=== PATIENT | male | born 1985 | race Two or more races ===

== ENCOUNTER 2021-11-15 21:47 | Inpatient (IN) | payer SELFPAY ==
[~2021-11-15] VITALS: Ht 177.8 cm; Wt 79.1 kg
[2021-11-15] MEDS ORDERED: PIP/TAZO PER PHARMACY MC PRN (22:15)
[2021-11-15 22:44] LABS: BASO # 0.1 x10^3/uL (0.0-0.2); BASO % 1 % (0-3); EOS % 0 % (0-3); HEMATOCRIT 50.7 % (39.0-53.0); HEMOGLOBIN 17.8 g/dL (13.0-17.5); LYMPH # 0.6 x10^3/uL (1.0-4.8); LYMPH % 5 % (24-48); MEAN CORPUSCULAR HEMOGLOBIN 33 pg (25-35); MEAN CORPUSCULAR HGB CONC 35 g/dL (31-37); MEAN CORPUSCULAR VOLUME 94 fL (79-100); MONO # 1.8 x10^3/uL (0.0-1.1); MONO % 14 % (0-9); NEUT # 10.8 x10^3/uL (1.8-7.7); NEUT % 81 % (31-73); PLATELET COUNT 167 x10^3/uL (140-400); RED BLOOD COUNT 5.43 x10^6/uL (4.30-5.70); RED CELL DISTRIBUTION WIDTH 12.3 % (11.5-14.5); WHITE BLOOD COUNT 13.3 x10^3/uL (4.0-11.0)
[2021-11-15 22:53] LABS: CREATININE 1.4 mg/dL (0.7-1.3)
[2021-11-15] MEDS ORDERED: fentaNYL PF VIAL 100 MCG/2 ML VIAL IV ONE (23:00)
[2021-11-15] MEDS ORDERED: IV NORMAL SALINE 1000ML BAG 1,000 ML IV SCH (23:00)
[2021-11-15] MEDS ORDERED: CONTRAST GIVEN. MC PRN (23:00)
[2021-11-15] MEDS ORDERED: IOHEXOL 300 MG/ML 100ML VIAL. IV ONE (23:00)
[2021-11-15] MEDS ORDERED: IOHEXOL 240 MG/ML 50ML VIAL. PO ONE (23:00)
[2021-11-15] MEDS ORDERED: PIPERACILLIN/TAZOBACTAM 4.5 GM in IV DEXTROSE 5% 100ML 100 ML IV ONE (23:00)
[2021-11-15 23:08] LABS: ALBUMIN 2.3 g/dL (3.4-5.0); ALBUMIN/GLOBULIN RATIO 0.4 (1.0-1.7); TOTAL BILIRUBIN 4.2 mg/dL (0.2-1.0); TOTAL PROTEIN 7.6 g/dL (6.4-8.2)
[2021-11-15] MEDS ORDERED: IV NORMAL SALINE 1000ML BAG 1,000 ML IV ONE (23:30)
[2021-11-16] VITALS (22 sets, daily range): BP systolic 76–140; BP diastolic 32–77
[2021-11-16 00:14] LABS: BILIRUBIN,URINE LARGE (NEG); CLARITY,URINE CLEAR; COLOR,URINE ORANGE; PH,URINE 5.5 (<5.0-8.0); PROTEIN,URINE 100 mg/dL (NEG-TRACE)
[2021-11-16 00:27] LABS: BACTERIA,URINE 0 /HPF (0-FEW); HYALINE CASTS, URINE MANY /HPF; RBC,URINE 0 /HPF (0-2)
[2021-11-16] MEDS ORDERED: VANCOMYCIN PER PHARMACY MC PRN (01:00)
[2021-11-16] MEDS ORDERED: fentaNYL PF VIAL 100 MCG/2 ML VIAL IV ONE (01:00)
--- NOTE | 2021-11-16 01:02 | RAD ---
EXAM: CT ABDOMEN/PELVIS WITH CONTRAST. HISTORY: Left gluteal draining abscess. TECHNIQUE: Computed tomography of the abdomen and pelvis was performed after the intravenous administ ration of Isovue-370. One or more of the following individualized dose reduction techniques were util ized for this examination: 1. Automated exposure control. 2. Adjustment of the mA and/or kV according to patient size. 3. Use of iterative reconstruction technique. COMPARISON: None. FINDINGS: Lung windows through the visualized portions of the bases reveal linear opacities in the victorino ng bases likely reflecting atelectasis. Bone windows reveal no suspicious lesions. The liver, spleen, gallbladder, pancreas, adrenal glands and kidneys are unremarkable. There are no p athologically enlarged lymph nodes. The appendix is not inflamed. There is no small bowel obstruction. There is soft tissue swelling and soft tissue gas throughout the subcutaneous compartment the left pr oximal/medial thigh, extending into the left inguinal crease and the left lower quadrant. There is no extension into the pelvis. There is no drainable collection. Small left renal lymph nodes are likely reactive. IMPRESSION: 1. Soft tissue gas and swelling within the left proximal/medial thigh extending into the left inguina l crease. Correlate clinically to exclude Jacky's gangrene. No drainable collection. These findings were called to Dr. Clark by Harsh Toney on 11/16/2021 at 12:52 AM. FOR INTERNAL CODING PURPOSES RESULT CODE: (C) Electronically signed by: Brittaney Toney MD (11/16/2021 12:59 AM) [facility]
--- NOTE | 2021-11-16 01:29 | PHYS DOC ---
Past Medical History Past Medical History: No Pertinent History Past Surgical History: No Surgical History Smoking Status: Never Smoker Alcohol Use: Rarely Drug Use: None General Adult EDM: Chief Complaint: SKIN RASH/ABSCESS HPI: HPI: 36-year-old male from [facility] that is Chuukese speaking presents with 1 week history of a "boil on his buttock " that opened and started draining today while patient was in the shower. Reports pain to area with malodorous drainage. Denies fever. Denies nausea or vomiting. Denies known trauma to region. Denies history of diabetes or other immune compromised condition. Of note: use of Zambian speaking family member utilized for translation of Chuukese. Review of Systems: Review of Systems: Constitutional: Denies fever; reports chills and generalized malaise Eyes: Denies redness or eye pain HENT: Denies nasal congestion or sore throat Respiratory: Denies cough or shortness of breath Cardiovascular: Denies chest pain or palpitations GI: Reports left lower groin pain; denies nausea or vomiting : Denies dysuria or hematuria Musculoskeletal: Denies back pain or joint pain Integument: Reports abscess to left buttocks that is draining and redness to left groin Neurologic: Denies headache, focal weakness or sensory changes; reports generalized weakness Complete systems were reviewed and found to be within normal limits, except as documented in this note. Heart Score: C/O Chest Pain: N/A Current Medications: Current Medications Medications (Trade) Dose Ordered Sig/Maria De Jesus Start Time Stop Time Status Last Admin Dose Admin Clindamycin Phosphate 50 ml @ 100 mls/hr 1X ONCE 11/16/21 02:00 11/16/21 02:29 Fentanyl Citrate (Fentanyl 2ml Vial) 50 mcg 1X ONCE 11/16/21 01:00 11/16/21 01:01 DC 11/16/21 01:00 50 MCG Info (CONTRAST GIVEN -- Rx MONITORING) 1 each PRN DAILY PRN 11/15/21 23:00 11/17/21 22:59 Iohexol (Omnipaque 240 Mg/ml) 30 ml 1X ONCE 11/15/21 23:00 11/15/21 23:01 DC 11/15/21 22:50 30 ML Iohexol (Omnipaque 300 Mg/ml) 75 ml 1X ONCE 11/15/21 23:00 11/15/21 23:01 DC 11/15/21 00:20 75 ML Piperacillin Sod/ Tazobactam Sod (Zosyn Per Pharmacy) 1 each PRN DAILY PRN 11/15/21 22:15 Piperacillin Sod/ Tazobactam Sod 3.375 gm/Sodium Chloride 50 ml @ 100 mls/hr Q6HRS 11/16/21 06:00 Piperacillin Sod/ Tazobactam Sod 4.5 gm/Dextrose 100 ml @ 200 mls/hr 1X ONCE 11/15/21 23:00 11/15/21 23:29 DC 11/15/21 22:43 200 MLS/HR Sodium Chloride 500 ml @ 500 mls/hr 1X ONCE 11/16/21 01:30 11/16/21 02:29 Vancomycin HCl (Vanco Per Pharmacy) 1 each PRN DAILY PRN 11/16/21 01:00 Vancomycin HCl 2 gm/Sodium Chloride 500 ml @ 250 mls/hr 1X ONCE 11/16/21 02:00 11/16/21 03:59 Allergies: Allergies: Allergies Coded Allergies Type Severity Reaction Last Updated Verified No Known Drug Allergies 11/15/21 No Physical Exam: PE: Constitutional: Well developed, well nourished, uncomfortable, non-toxic appearance HENT: Normocephalic, atraumatic Eyes: Conjunctiva normal, no discharge Neck: Normal range of motion, no tenderness, supple Lungs & Thorax: No respiratory distress, equal chest rise and fall Abdomen: Soft, LLQ tenderness : Testes appear normal, scrotum also appears normal Skin: Warm, dry, erythema noted to LLQ/groin, open draining wound to left proximal medial thigh with induration down to left mid medial thigh and to perineal area, purulent malodorous dark thin exudate noted from wound Extremities: Tenderness to upper medial thigh at site of cellulitis and draining abscess, ROM intact, no edema Neurologic: Alert and oriented X 3, no focal deficits noted Psychologic: Affect normal, judgment normal Current Patient Data: Labs: Laboratory Tests Test 11/15/21 22:26 11/16/21 00:05 White Blood Count 13.3 x10^3/uL (4.0-11.0) H Red Blood Count 5.43 x10^6/uL (4.30-5.70) Hemoglobin 17.8 g/dL (13.0-17.5) H Hematocrit 50.7 % (39.0-53.0) Mean Corpuscular Volume 94 fL (79-100) Mean Corpuscular Hemoglobin 33 pg (25-35) Mean Corpuscular Hemoglobin Concent 35 g/dL (31-37) Red Cell Distribution Width 12.3 % (11.5-14.5) Platelet Count 167 x10^3/uL (140-400) Neutrophils (%) (Auto) 81 % (31-73) H Lymphocytes (%) (Auto) 5 % (24-48) L Monocytes (%) (Auto) 14 % (0-9) H Eosinophils (%) (Auto) 0 % (0-3) Basophils (%) (Auto) 1 % (0-3) Neutrophils # (Auto) 10.8 x10^3/uL (1.8-7.7) H Lymphocytes # (Auto) 0.6 x10^3/uL (1.0-4.8) L Monocytes # (Auto) 1.8 x10^3/uL (0.0-1.1) H Eosinophils # (Auto) 0.0 x10^3/uL (0.0-0.7) Basophils # (Auto) 0.1 x10^3/uL (0.0-0.2) Platelet Estimate Pending Sodium Level 131 mmol/L (136-145) L Potassium Level 4.0 mmol/L (3.5-5.1) Chloride Level 90 mmol/L (98-107) L Carbon Dioxide Level 25 mmol/L (21-32) Anion Gap 16 (6-14) H Blood Urea Nitrogen 20 mg/dL (8-26) Creatinine 1.4 mg/dL (0.7-1.3) H Estimated GFR (Cockcroft-Gault) 57.0 BUN/Creatinine Ratio 14 (6-20) Glucose Level 158 mg/dL (70-99) H Lactic Acid Level 4.1 mmol/L (0.4-2.0) *H Calcium Level 8.0 mg/dL (8.5-10.1) L Magnesium Level 2.1 mg/dL (1.8-2.4) Total Bilirubin 4.2 mg/dL (0.2-1.0) H Aspartate Amino Transferase (AST) 50 U/L (15-37) H Alanine Aminotransferase (ALT) 90 U/L (16-63) H Alkaline Phosphatase 191 U/L (46-116) H Total Protein 7.6 g/dL (6.4-8.2) Albumin 2.3 g/dL (3.4-5.0) L Albumin/Globulin Ratio 0.4 (1.0-1.7) L Lipase 56 U/L (73-393) L Urine Collection Type Unknown Urine Color Desha Urine Clarity Clear Urine pH 5.5 (<5.0-8.0) Urine Specific [place] >=1.030 (1.000-1.030) Urine Protein 100 mg/dL (NEG-TRACE) Urine Glucose (UA) Negative mg/dL (NEG) Urine Ketones (Stick) Trace mg/dL (NEG) Urine Blood Negative (NEG) Urine Nitrite (NEG) Urine Bilirubin Large (NEG) Urine Urobilinogen Dipstick 4.0 mg/dL (0.2 mg/dL) Urine Leukocyte Esterase Small (NEG) Urine RBC 0 /HPF (0-2) Urine WBC 1-4 /HPF (0-4) Urine Squamous Epithelial Cells Few /LPF Urine Bacteria 0 /HPF (0-FEW) Urine Hyaline Casts Many /HPF Urine Mucus Mod /LPF Laboratory Tests 11/15/21 22:26 Laboratory Tests 11/15/21 22:26 Vital Signs: Vital Signs Date Time Temp Pulse Resp B/P (MAP) Pulse Ox O2 Delivery O2 Flow Rate FiO2 11/16/21 01:00 16 99 Room Air 11/15/21 21:48 98.4 106 139/80 (99) 98.4 EKG: EKG: [] Radiology/Procedures: Radiology/Procedures: PROCEDURE: CT ABD PELV W/ORAL&IV CONTRAST EXAM: CT ABDOMEN/PELVIS WITH CONTRAST. HISTORY: Left gluteal draining abscess. TECHNIQUE: Computed tomography of the abdomen and pelvis was performed after the intravenous administration of Isovue-370. One or more of the following individualized dose reduction techniques were utilized for this examination: 1. Automated exposure control. 2. Adjustment of the mA and/or kV according to patient size. 3. Use of iterative reconstruction technique. COMPARISON: None. FINDINGS: Lung windows through the visualized portions of the bases reveal linear opacities in the lung bases likely reflecting atelectasis. Bone windows reveal no suspicious lesions. The liver, spleen, gallbladder, pancreas, adrenal glands and kidneys are unremarkable. There are no pathologically enlarged lymph nodes. The appendix is not inflamed. There is no small bowel obstruction. There is soft tissue swelling and soft tissue gas throughout the subcutaneous compartment the left proximal/medial thigh, extending into the left inguinal crease and the left lower quadrant. There is no extension into the pelvis. There is no drainable collection. Small left renal lymph nodes are likely reactive. IMPRESSION: 1. Soft tissue gas and swelling within the left proximal/medial thigh extending into the left inguinal crease. Correlate clinically to exclude Jacky's gangrene. No drainable collection. These findings were called to Dr. Cohen by Harsh Toney on 11/16/2021 at 12:52 AM. FOR INTERNAL CODING PURPOSES RESULT CODE: (C) Electronically signed by: Brittaney Toney MD (11/16/2021 12:59 AM) [facility] Course & Med Decision Making: Course & Med Decision Making Pertinent Labs and Imaging studies reviewed. (See chart for details) Chuukese speaking patient presents with HPI and physical exam concerning for cellulitis and abscess of left proximal thigh. Abscess appears to be draining and is excessively malodorous. Patient is afebrile. Empiric antibiotics initiated with Zosyn. Labs obtained and posted to chart. SIRS criteria met with heart rate and elevated WBC. Lactic acid > 4. Patient therefore meeting criteria for septic shock. Vancomycin added. IV fluid bolusing at 30ml/kg initiated. CT obtained with findings concerning for gas forming organism possibly Jacky's gangrene. Clindamycin also added. Patient requiring admission for further evaluation and treatment. Discussed case with Dr. Gamble (General Surgery) regarding ability to keep at [facility] without urology consultation. Given no extention onto scrotum and no drainable abscess noted, Dr. Gamble in agreement with consultation. Discussed with Dr. Portillo (hospitalist) who is in agreement with ICU admission. Will consult Infectious Disease. Discussed case with Dr. Duffy (ID) regarding, who is also in agreement with consultation. Discussed findings and plan with patient and family, who acknowledge understanding and agreement. Pratibha Disclaimer: Pratibha Disclaimer: This electronic medical record was generated, in whole or in part, using a voice recognition dictation system. 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 Elevated LFTs Disposition: ADMITTED INPATIENT Admitting Physician: LUPILLO Sarah) Condition: GUARDED Referrals: NO PCP (PCP) Date and Time of Reassessment Date: Nov 16, 2021 Time: 01:00 Fluid Challenge Is the fluid challenge complet: No IBW Target Volume Used: No BMI > 30: No Vital Signs Vital Signs: Vital Signs Date Time Temp Pulse Resp B/P (MAP) Pulse Ox O2 Delivery O2 Flow Rate FiO2 11/16/21 01:00 16 99 Room Air 11/15/21 21:48 98.4 106 139/80 (99) 98.4 Temperature Source: Oral Respirations Respiratory Effort: Normal Respiratory Pattern: Normal Cardiovascular Pulse Rhythm: Regular Heart: Nml rate, reg. rhythm Lung Sounds Breath Sounds: Clear Capillary Refil Capillary Refill: Rt Hand < 3 seconds Peripheral Pulse Pulse Location: Radial Pulse Strength: Normal (2+) Pulse Assessment Method: Palpation Integumentary Skin: Warm, Other (erythema and induration to left gluteal fold extending to thigh) Skin Moisture: Dry Skin Turgor: Normal Skin Color: warm, erythema Fingernail Color: WNL Critical Care Time Critical care time was 45 minutes which includes time at bedside, spent in discussion of patient's care with specialists and/or family members, with interpretation of laboratory and/or radiological studies and is exclusive of procedures. LUISA COHEN DO Nov 16, 2021 01:29
[2021-11-16] MEDS ORDERED: IV NORMAL SALINE 500ML BAG 500 ML IV ONE (01:30)
[2021-11-16] MEDS ORDERED: CLINDAMYCIN 600MG PREMIX 50 ML IV ONE (02:00)
[2021-11-16] MEDS ORDERED: VANCOMYCIN 2 GM in IV NORMAL SALINE 500ML BAG 500 ML IV ONE (02:00)
[2021-11-16] MEDS ORDERED: ACETAMINOPHEN 325 MG TABLET. PO PRN (02:30)
[2021-11-16] MEDS ORDERED: ONDANSETRON PF 4 MG/2 ML VIAL. IVP PRN ×2 (02:30→09:15)
[2021-11-16] MEDS ORDERED: IV NORMAL SALINE 1000ML BAG 1,000 ML IV SCH (03:00)
[2021-11-16] MEDS: fentaNYL PF VIAL 100 MCG/2 ML VIAL IVP PRN ×7 (03:11→17:43)
--- NOTE | 2021-11-16 04:35 | NUR ---
Pharmacy Vancomycin Dosing Note S:Consulted to monitor and dose vancomycin started 11/16/21. O:REENA LOPEZ is a 36 year old M with Sepsis . Height: 5 feet, 10 inches Weight: 82.8 kg [place] Body Weight: 73.00 Adjusted Body Weight: 76.92 Dosing Weight: Actual Other Antibiotics: ZOSYN 3.375 GM Q6H LABS: Last BUN: 20 Last Creatinine: 1.4 Creatinine Clearance: 78 mL/min Last WBC: 13.3 Last Procalcitonin: Tmax (past 24 hours): Microbiology: I/O: Drug Levels: Last level: on at Last dose given 11/16/21 at 0330 Vancomycin Dosing: Loading Dose: 2000 mg x1 Dosing Weight: Actual Target Trough: 15-20 A: Based on: WT AND CRCL P: 1. Begin Vancomycin 1250 mg IV q12h 2. Follow up Trough level on 11/17/21 at 1530 3. Pharmacy will continue to monitor, follow and adjust therapy as needed. KARRIE CALVERT RPH, 11/16/21 0436 Signed: 11/16/21 at 0436 by KARRIE CALVERT RPH PHA
[2021-11-16 04:53] LABS: % BANDS 40 % (0-9); % LYMPHS 8 % (24-48); % METAS 5 % (0-0); % MONOS 12 % (0-10); % MYELOS 2 % (0-0); % SEGS 33 % (35-66); PLT ESTIMATE ADEQUATE (ADEQUATE); TOXIC GRANULATION MOD
[2021-11-16] MEDS: PIPERACILLIN/TAZOBACTAM 3.375 GM in IV NORMAL SALINE 50ML 50 ML IV SCH ×3 (06:00→17:46)
--- NOTE | 2021-11-16 06:27 | NUR ---
The patient, REENA LOPEZ, 36 y/o, M admitted by LILA DENT MD, was given written information regarding hospital policies, unit procedures and contact persons. Health history was reviewed with patient. Patient states he takes no prescription medications and does not use a pharmacy. Bed locked and in lowest position, call light within reach. Valuables were checked and left in room.
--- NOTE | 2021-11-16 07:59 | PDOC2 ---
CONSULT Date of Consult Date of Consult DATE: 11/16/21 TIME: 07:55 Reason for Consult Reason for Consult: Left thigh abscess Referring Physician Referring Physician: Bandar Identification/Chief Complaint Chief Complaint Left thigh pain Source Source: Chart review, Patient History of Present Illness Reason for Visit: 36-year-old male has had a 2-day history of increasing swelling in his left groin and thigh area and extreme pain came to the emergency department further evaluation CT scan of this area shows subcutaneous gas. Past Medical History Cardiovascular: No pertinent hx Pulmonary: No pertinent hx GI: No pertinent hx Heme/Onc: No pertinent hx Hepatobiliary: No pertinent hx Psych: No pertinent hx Rheumatologic: No pertinent hx ENT: No pertinent hx Renal/: No pertinent hx Endocrine: No pertinent hx Dermatology: No pertinent hx Past Surgical History Past Surgical History: No pertinent history Family History Family History: No Significant Social History No ALCOHOL: none Drugs: None Lives: with Family Current Problem List Problem List Problems Medical Problems: (1) Elevated LFTs Status: Acute (2) Fourniers gangrene Status: Acute (3) Hyperbilirubinemia Status: Acute (4) Sepsis Status: Acute (5) Septic shock Status: Acute Current Medications Current Medications Current Medications Sodium Chloride 1,000 ml @ 1,000 mls/hr Q1H IV Last administered on 11/15/21at 22:43; Start 11/15/21 at 23:00; Stop 11/15/21 at 23:59; Status DC Piperacillin Sod/ Tazobactam Sod (Zosyn Per Pharmacy) 1 each PRN DAILY PRN MC SEE COMMENTS; Start 11/15/21 at 22:15 Fentanyl Citrate (Fentanyl 2ml Vial) 50 mcg 1X ONCE IV Last administered on 11/15/21at 22:42; Start 11/15/21 at 23:00; Stop 11/15/21 at 23:01; Status DC Piperacillin Sod/ Tazobactam Sod 4.5 gm/Dextrose 100 ml @ 200 mls/hr 1X ONCE IV Last administered on 11/15/21at 22:43; Start 11/15/21 at 23:00; Stop 11/15/21 at 23:29; Status DC Iohexol (Omnipaque 240 Mg/ml) 30 ml 1X ONCE PO Last administered on 11/15/21at 22:50; Start 11/15/21 at 23:00; Stop 11/15/21 at 23:01; Status DC Iohexol (Omnipaque 300 Mg/ml) 75 ml 1X ONCE IV Last administered on 11/15/21at 00:20; Start 11/15/21 at 23:00; Stop 11/15/21 at 23:01; Status DC Info (CONTRAST GIVEN -- Rx MONITORING) 1 each PRN DAILY PRN MC SEE COMMENTS; Start 11/15/21 at 23:00; Stop 11/17/21 at 22:59 Sodium Chloride 1,000 ml @ 1,000 mls/hr 1X ONCE IV Last administered on 11/15/21at 23:20; Start 11/15/21 at 23:30; Stop 11/16/21 at 00:29; Status DC Piperacillin Sod/ Tazobactam Sod 3.375 gm/Sodium Chloride 50 ml @ 100 mls/hr Q6HRS IV Last administered on 11/16/21at 06:00; Start 11/16/21 at 06:00 Fentanyl Citrate (Fentanyl 2ml Vial) 50 mcg 1X ONCE IV Last administered on 11/16/21at 01:00; Start 11/16/21 at 01:00; Stop 11/16/21 at 01:01; Status DC Vancomycin HCl (Vanco Per Pharmacy) 1 each PRN DAILY PRN MC SEE COMMENTS Last administered on 11/16/21at 04:34; Start 11/16/21 at 01:00 Sodium Chloride 500 ml @ 500 mls/hr 1X ONCE IV Last administered on 11/16/21at 02:01; Start 11/16/21 at 01:30; Stop 11/16/21 at 02:29; Status DC Vancomycin HCl 2 gm/Sodium Chloride 500 ml @ 250 mls/hr 1X ONCE IV Last administered on 11/16/21at 03:30; Start 11/16/21 at 02:00; Stop 11/16/21 at 03:59; Status DC Clindamycin Phosphate 50 ml @ 100 mls/hr 1X ONCE IV Last administered on 11/16/21at 02:00; Start 11/16/21 at 02:00; Stop 11/16/21 at 02:29; Status DC Ondansetron HCl (Zofran) 4 mg PRN Q8HRS PRN IVP NAUSEA/VOMITING 1ST CHOICE; Start 11/16/21 at 02:30; Stop 11/17/21 at 02:29 Fentanyl Citrate (Fentanyl 2ml Vial) 50 mcg PRN Q2HRS PRN IVP SEVERE PAIN 7-10 Last administered on 11/16/21at 05:39; Start 11/16/21 at 02:30 Sodium Chloride 1,000 ml @ 150 mls/hr Q6H40M IV Last administered on 11/16/21at 03:03; Start 11/16/21 at 03:00; Stop 11/17/21 at 02:59 Acetaminophen (Tylenol) 650 mg PRN Q4HRS PRN PO FEVER > 100.3'F Last adm inistered on 11/16/21at 03:10; Start 11/16/21 at 02:30; Stop 11/17/21 at 02:29 Vancomycin HCl 1.25 gm/Sodium Chloride 250 ml @ 167 mls/hr Q12H IV ; Start 11/16/21 at 16:00 Vancomycin HCl (Vancomycin Trough Level) 1 each 1X ONCE MC ; Start 11/17/21 at 15:30; Stop 11/17/21 at 15:31 Allergies Allergies: Coded Allergies: No Known Drug Allergies (Unverified , 11/15/21) ROS Musculoskeletal: Yes Swelling In: (Left thigh) Physical Exam General: Alert, Oriented X3, Cooperative, moderate distress HEENT: Atraumatic, PERRLA, EOMI Lungs: Clear to auscultation, Normal air movement Heart: Regular rate, No murmurs Abdomen: Normal bowel sounds, Soft, No tenderness Extremities: Other (Erythema and swelling left thigh groin area very tender to palpation) Skin: No significant lesion Neuro: Normal speech Psych/Mental Status: Mental status NL Vitals VITALS Vital Signs Date Time Temp Pulse Resp B/P (MAP) Pulse Ox O2 Delivery O2 Flow Rate FiO2 11/16/21 07:00 113 20 118/65 (82) 96 Room Air 11/16/21 03:00 101.4 101.4 Labs Labs Laboratory Tests Test 11/15/21 22:26 11/16/21 00:05 11/16/21 02:40 White Blood Count 13.3 x10^3/uL (4.0-11.0) Red Blood Count 5.43 x10^6/uL (4.30-5.70) Hemoglobin 17.8 g/dL (13.0-17.5) Hematocrit 50.7 % (39.0-53.0) Mean Corpuscular Volume 94 fL (79-100) Mean Corpuscular Hemoglobin 33 pg (25-35) Mean Corpuscular Hemoglobin Concent 35 g/dL (31-37) Red Cell Distribution Width 12.3 % (11.5-14.5) Platelet Count 167 x10^3/uL (140-400) Neutrophils (%) (Auto) 81 % (31-73) Lymphocytes (%) (Auto) 5 % (24-48) Monocytes (%) (Auto) 14 % (0-9) Eosinophils (%) (Auto) 0 % (0-3) Basophils (%) (Auto) 1 % (0-3) Neutrophils # (Auto) 10.8 x10^3/uL (1.8-7.7) Lymphocytes # (Auto) 0.6 x10^3/uL (1.0-4.8) Monocytes # (Auto) 1.8 x10^3/uL (0.0-1.1) Eosinophils # (Auto) 0.0 x10^3/uL (0.0-0.7) Basophils # (Auto) 0.1 x10^3/uL (0.0-0.2) Segmented Neutrophils % 33 % (35-66) Band Neutrophils % 40 % (0-9) Lymphocytes % 8 % (24-48) Monocytes % 12 % (0-10) Metamyelocytes % 5 % (0-0) Myelocytes % 2 % (0-0) Toxic Granulation Mod Platelet Estimate Adequate (ADEQUATE) Sodium Level 131 mmol/L (136-145) Potassium Level 4.0 mmol/L (3.5-5.1) Chloride Level 90 mmol/L (98-107) Carbon Dioxide Level 25 mmol/L (21-32) Anion Gap 16 (6-14) Blood Urea Nitrogen 20 mg/dL (8-26) Creatinine 1.4 mg/dL (0.7-1.3) Estimated GFR (Cockcroft-Gault) 57.0 BUN/Creatinine Ratio 14 (6-20) Glucose Level 158 mg/dL (70-99) Lactic Acid Level 4.1 mmol/L (0.4-2.0) Calcium Level 8.0 mg/dL (8.5-10.1) Magnesium Level 2.1 mg/dL (1.8-2.4) Total Bilirubin 4.2 mg/dL (0.2-1.0) Aspartate Amino Transf (AST/SGOT) 50 U/L (15-37) Alanine Aminotransferase (ALT/SGPT) 90 U/L (16-63) Alkaline Phosphatase 191 U/L (46-116) Total Protein 7.6 g/dL (6.4-8.2) Albumin 2.3 g/dL (3.4-5.0) Albumin/Globulin Ratio 0.4 (1.0-1.7) Lipase 56 U/L (73-393) Urine Collection Type Unknown Urine Color [place] Urine Clarity Clear Urine pH 5.5 (<5.0-8.0) Urine Specific [place] >=1.030 (1.000-1.030) Urine Protein 100 mg/dL (NEG-TRACE) Urine Glucose (UA) Negative mg/dL (NEG) Urine Ketones (Stick) Trace mg/dL (NEG) Urine Blood Negative (NEG) Urine Nitrite (NEG) Urine Bilirubin Large (NEG) Urine Urobilinogen Dipstick 4.0 mg/dL (0.2 mg/dL) Urine Leukocyte Esterase Small (NEG) Urine RBC 0 /HPF (0-2) Urine WBC 1-4 /HPF (0-4) Urine Squamous Epithelial Cells Few /LPF Urine Bacteria 0 /HPF (0-FEW) Urine Hyaline Casts Many /HPF Urine Mucus Mod /LPF SARS-CoV-2 Antigen (Rapid) Negative (NEGATIVE) Laboratory Tests Test 11/15/21 22:26 11/16/21 00:05 11/16/21 02:40 White Blood Count 13.3 x10^3/uL (4.0-11.0) Red Blood Count 5.43 x10^6/uL (4.30-5.70) Hemoglobin 17.8 g/dL (13.0-17.5) Hematocrit 50.7 % (39.0-53.0) Mean Corpuscular Volume 94 fL (79-100) Mean Corpuscular Hemoglobin 33 pg (25-35) Mean Corpuscular Hemoglobin Concent 35 g/dL (31-37) Red Cell Distribution Width 12.3 % (11.5-14.5) Platelet Count 167 x10^3/uL (140-400) Neutrophils (%) (Auto) 81 % (31-73) Lymphocytes (%) (Auto) 5 % (24-48) Monocytes (%) (Auto) 14 % (0-9) Eosinophils (%) (Auto) 0 % (0-3) Basophils (%) (Auto) 1 % (0-3) Neutrophils # (Auto) 10.8 x10^3/uL (1.8-7.7) Lymphocytes # (Auto) 0.6 x10^3/uL (1.0-4.8) Monocytes # (Auto) 1.8 x10^3/uL (0.0-1.1) Eosinophils # (Auto) 0.0 x10^3/uL (0.0-0.7) Basophils # (Auto) 0.1 x10^3/uL (0.0-0.2) Segmented Neutrophils % 33 % (35-66) Band Neutrophils % 40 % (0-9) Lymphocytes % 8 % (24-48) Monocytes % 12 % (0-10) Metamyelocytes % 5 % (0-0) Myelocytes % 2 % (0-0) Toxic Granulation Mod Platelet Estimate Adequate (ADEQUATE) Sodium Level 131 mmol/L (136-145) Potassium Level 4.0 mmol/L (3.5-5.1) Chloride Level 90 mmol/L (98-107) Carbon Dioxide Level 25 mmol/L (21-32) Anion Gap 16 (6-14) Blood Urea Nitrogen 20 mg/dL (8-26) Creatinine 1.4 mg/dL (0.7-1.3) Estimated GFR (Cockcroft-Gault) 57.0 BUN/Creatinine Ratio 14 (6-20) Glucose Level 158 mg/dL (70-99) Lactic Acid Level 4.1 mmol/L (0.4-2.0) Calcium Level 8.0 mg/dL (8.5-10.1) Magnesium Level 2.1 mg/dL (1.8-2.4) Total Bilirubin 4.2 mg/dL (0.2-1.0) Aspartate Amino Transf (AST/SGOT) 50 U/L (15-37) Alanine Aminotransferase (ALT/SGPT) 90 U/L (16-63) Alkaline Phosphatase 191 U/L (46-116) Total Protein 7.6 g/dL (6.4-8.2) Albumin 2.3 g/dL (3.4-5.0) Albumin/Globulin Ratio 0.4 (1.0-1.7) Lipase 56 U/L (73-393) Urine Collection Type Unknown Urine Color [place] Urine Clarity Clear Urine pH 5.5 (<5.0-8.0) Urine Specific [place] >=1.030 (1.000-1.030) Urine Protein 100 mg/dL (NEG-TRACE) Urine Glucose (UA) Negative mg/dL (NEG) Urine Ketones (Stick) Trace mg/dL (NEG) Urine Blood Negative (NEG) Urine Nitrite (NEG) Urine Bilirubin Large (NEG) Urine Urobilinogen Dipstick 4.0 mg/dL (0.2 mg/dL) Urine Leukocyte Esterase Small (NEG) Urine RBC 0 /HPF (0-2) Urine WBC 1-4 /HPF (0-4) Urine Squamous Epithelial Cells Few /LPF Urine Bacteria 0 /HPF (0-FEW) Urine Hyaline Casts Many /HPF Urine Mucus Mod /LPF SARS-CoV-2 Antigen (Rapid) Negative (NEGATIVE) Assessment/Plan Assessment/Plan Left thigh and groin abscess plan on incision and drainage open wound packing KASIE FORRESTER MD Nov 16, 2021 07:59
--- NOTE | 2021-11-16 08:21 | PDOC1 ---
History and Physical Date of Service: DOS: DATE: 11/16/21 TIME: 08:08 Chief Complaint: Chief Complain: Left thigh pain History of Present Illness: HPI: History obtained from discussion with ED and chart review: 36-year-old male presents with history of a "boil on his buttock for the past 2 weeks and states that he scratched and popped it a while ago. Endorses chills and fevers and extreme pain in his left thigh. Denies any chest pain, shortness of breath, abdominal pain, diarrhea, dysuria or bloody diarrhea. No relative past medical history of diabetes or hypertension. Former smoker but quit a few years ago. Past Medical/Surgical History: PMH/PSH: Past Medical History: No Pertinent History Past Surgical History: No Surgical History Allergies: Allergies: Coded Allergies: No Known Drug Allergies (Unverified , 11/15/21) Family History: Family History: Reviewed with no relevant findings Social History: Social History: Smoking Status: Never Smoker Alcohol Use: Rarely Drug Use: None Current Medications: Current Medications Current Medications Sodium Chloride 1,000 ml @ 1,000 mls/hr Q1H IV Last administered on 11/15/21at 22:43; Start 11/15/21 at 23:00; Stop 11/15/21 at 23:59; Status DC Piperacillin Sod/ Tazobactam Sod (Zosyn Per Pharmacy) 1 each PRN DAILY PRN MC SEE COMMENTS; Start 11/15/21 at 22:15 Fentanyl Citrate (Fentanyl 2ml Vial) 50 mcg 1X ONCE IV Last administered on 11/15/21at 22:42; Start 11/15/21 at 23:00; Stop 11/15/21 at 23:01; Status DC Piperacillin Sod/ Tazobactam Sod 4.5 gm/Dextrose 100 ml @ 200 mls/hr 1X ONCE IV Last administered on 11/15/21at 22:43; Start 11/15/21 at 23:00; Stop 11/15/21 at 23:29; Status DC Iohexol (Omnipaque 240 Mg/ml) 30 ml 1X ONCE PO Last administered on 11/15/21at 22:50; Start 11/15/21 at 23:00; Stop 11/15/21 at 23:01; Status DC Iohexol (Omnipaque 300 Mg/ml) 75 ml 1X ONCE IV Last administered on 11/15/21at 00:20; Start 11/15/21 at 23:00; Stop 11/15/21 at 23:01; Status DC Info (CONTRAST GIVEN -- Rx MONITORING) 1 each PRN DAILY PRN MC SEE COMMENTS; Start 11/15/21 at 23:00; Stop 11/17/21 at 22:59 Sodium Chloride 1,000 ml @ 1,000 mls/hr 1X ONCE IV Last administered on 11/15/21at 23:20; Start 11/15/21 at 23:30; Stop 11/16/21 at 00:29; Status DC Piperacillin Sod/ Tazobactam Sod 3.375 gm/Sodium Chloride 50 ml @ 100 mls/hr Q6HRS IV Last administered on 11/16/21at 06:00; Start 11/16/21 at 06:00 Fentanyl Citrate (Fentanyl 2ml Vial) 50 mcg 1X ONCE IV Last administered on 11/16/21at 01:00; Start 11/16/21 at 01:00; Stop 11/16/21 at 01:01; Status DC Vancomycin HCl (Vanco Per Pharmacy) 1 each PRN DAILY PRN MC SEE COMMENTS Last administered on 11/16/21at 04:34; Start 11/16/21 at 01:00 Sodium Chloride 500 ml @ 500 mls/hr 1X ONCE IV Last administered on 11/16/21at 02:01; Start 11/16/21 at 01:30; Stop 11/16/21 at 02:29; Status DC Vancomycin HCl 2 gm/Sodium Chloride 500 ml @ 250 mls/hr 1X ONCE IV Last administered on 11/16/21at 03:30; Start 11/16/21 at 02:00; Stop 11/16/21 at 03:59; Status DC Clindamycin Phosphate 50 ml @ 100 mls/hr 1X ONCE IV Last administered on 11/16/21at 02:00; Start 11/16/21 at 02:00; Stop 11/16/21 at 02:29; Status DC Ondansetron HCl (Zofran) 4 mg PRN Q8HRS PRN IVP NAUSEA/VOMITING 1ST CHOICE; Start 11/16/21 at 02:30; Stop 11/17/21 at 02:29 Fentanyl Citrate (Fentanyl 2ml Vial) 50 mcg PRN Q2HRS PRN IVP SEVERE PAIN 7-10 Last administered on 11/16/21at 07:56; Start 11/16/21 at 02:30 Sodium Chloride 1,000 ml @ 150 mls/hr Q6H40M IV Last administered on 11/16/21at 03:03; Start 11/16/21 at 03:00; Stop 11/17/21 at 02:59 Acetaminophen (Tylenol) 650 mg PRN Q4HRS PRN PO FEVER > 100.3'F Last administered on 11/16/21at 03:10; Start 11/16/21 at 02:30; Stop 11/17/21 at 02:29 Vancomycin HCl 1.25 gm/Sodium Chloride 250 ml @ 167 mls/hr Q12H IV ; Start 11/16/21 at 16:00 Vancomycin HCl (Vancomycin Trough Level) 1 each 1X ONCE MC ; Start 11/17/21 at 15:30; Stop 11/17/21 at 15:31 ROS: Review of Systems Review of System REVIEW OF SYSTEMS: GENERAL: Denies weakness SKIN: No bruising, hair changes or rashes. EYES: No blurred, double or loss of vision. NOSE AND THROAT: No history of nosebleeds, hoarseness or sore throat. HEART: No history of palpitations, chest pain or shortness of breath on exertion. LUNGS: Denies cough, hemoptysis, wheezing or shortness of breath. GASTROINTESTINAL: Denies changes in appetite, nausea, vomiting, diarrhea or constipation. GENITOURINARY: No history of frequency, urgency, hesitancy or nocturia. NEUROLOGIC: Denies history of numbness, tingling, or tremor. PSYCHIATRIC: No history of panic, anxiety or depression. ENDOCRINE: No history of heat or cold intolerance, polyuria or polydipsia. EXTREMITIES: Left thigh pain. Physical Exam: Vital Signs: Vital Signs Date Time Temp Pulse Resp B/P (MAP) Pulse Ox O2 Delivery O2 Flow Rate FiO2 11/16/21 07:56 16 97 Room Air 11/16/21 07:00 113 118/65 (82) 11/16/21 03:00 101.4 101.4 Physcial Exam: General: Well developed, well nourished, no acute distress, well appearing HEENT: Pupils equally round and reactive to light, EOMI, no discharge, normal c onjunctiva Neck: Supple, no nuchal rigidity, no JVD, trachea midline, no tenderness Cardiac: RRR, no murmurs, no gallops, no rubs Chest/Lungs: CTAB, no wheeze, no rhonchi, no crackles Abdomen: soft, non-distended, no guarding, no peritoneal signs, non-tender Back: No tenderness Extremities: no edema, pulses intact, non-tender,capillary refill <3 sec bilateral upper and lower extremities, left groin abscess with surrounding erythema and purulent drainage. Malodorous. Exquisite tenderness in the whole left lower extremity Neuro: Alert and oriented x 4, no focal deficits, normal speech Labs: Labs: Laboratory Tests Test 11/15/21 22:26 11/16/21 00:05 11/16/21 02:40 White Blood Count 13.3 x10^3/uL (4.0-11.0) Red Blood Count 5.43 x10^6/uL (4.30-5.70) Hemoglobin 17.8 g/dL (13.0-17.5) Hematocrit 50.7 % (39.0-53.0) Mean Corpuscular Volume 94 fL (79-100) Mean Corpuscular Hemoglobin 33 pg (25-35) Mean Corpuscular Hemoglobin Concent 35 g/dL (31-37) Red Cell Distribution Width 12.3 % (11.5-14.5) Platelet Count 167 x10^3/uL (140-400) Neutrophils (%) (Auto) 81 % (31-73) Lymphocytes (%) (Auto) 5 % (24-48) Monocytes (%) (Auto) 14 % (0-9) Eosinophils (%) (Auto) 0 % (0-3) Basophils (%) (Auto) 1 % (0-3) Neutrophils # (Auto) 10.8 x10^3/uL (1.8-7.7) Lymphocytes # (Auto) 0.6 x10^3/uL (1.0-4.8) Monocytes # (Auto) 1.8 x10^3/uL (0.0-1.1) Eosinophils # (Auto) 0.0 x10^3/uL (0.0-0.7) Basophils # (Auto) 0.1 x10^3/uL (0.0-0.2) Segmented Neutrophils % 33 % (35-66) Band Neutrophils % 40 % (0-9) Lymphocytes % 8 % (24-48) Monocytes % 12 % (0-10) Metamyelocytes % 5 % (0-0) Myelocytes % 2 % (0-0) Toxic Granulation Mod Platelet Estimate Adequate (ADEQUATE) Sodium Level 131 mmol/L (136-145) Potassium Level 4.0 mmol/L (3.5-5.1) Chloride Level 90 mmol/L (98-107) Carbon Dioxide Level 25 mmol/L (21-32) Anion Gap 16 (6-14) Blood Urea Nitrogen 20 mg/dL (8-26) Creatinine 1.4 mg/dL (0.7-1.3) Estimated GFR (Cockcroft-Gault) 57.0 BUN/Creatinine Ratio 14 (6-20) Glucose Level 158 mg/dL (70-99) Lactic Acid Level 4.1 mmol/L (0.4-2.0) Calcium Level 8.0 mg/dL (8.5-10.1) Magnesium Level 2.1 mg/dL (1.8-2.4) Total Bilirubin 4.2 mg/dL (0.2-1.0) Aspartate Amino Transf (AST/SGOT) 50 U/L (15-37) Alanine Aminotransferase (ALT/SGPT) 90 U/L (16-63) Alkaline Phosphatase 191 U/L (46-116) Total Protein 7.6 g/dL (6.4-8.2) Albumin 2.3 g/dL (3.4-5.0) Albumin/Globulin Ratio 0.4 (1.0-1.7) Lipase 56 U/L (73-393) Urine Collection Type Unknown Urine Color [place] Urine Clarity Clear Urine pH 5.5 (<5.0-8.0) Urine Specific [place] >=1.030 (1.000-1.030) Urine Protein 100 mg/dL (NEG-TRACE) Urine Glucose (UA) Negative mg/dL (NEG) Urine Ketones (Stick) Trace mg/dL (NEG) Urine Blood Negative (NEG) Urine Nitrite (NEG) Urine Bilirubin Large (NEG) Urine Urobilinogen Dipstick 4.0 mg/dL (0.2 mg/dL) Urine Leukocyte Esterase Small (NEG) Urine RBC 0 /HPF (0-2) Urine WBC 1-4 /HPF (0-4) Urine Squamous Epithelial Cells Few /LPF Urine Bacteria 0 /HPF (0-FEW) Urine Hyaline Casts Many /HPF Urine Mucus Mod /LPF SARS-CoV-2 Antigen (Rapid) Negative (NEGATIVE) Laboratory Tests Test 11/15/21 22:26 11/16/21 00:05 11/16/21 02:40 White Blood Count 13.3 x10^3/uL (4.0-11.0) Red Blood Count 5.43 x10^6/uL (4.30-5.70) Hemoglobin 17.8 g/dL (13.0-17.5) Hematocrit 50.7 % (39.0-53.0) Mean Corpuscular Volume 94 fL (79-100) Mean Corpuscular Hemoglobin 33 pg (25-35) Mean Corpuscular Hemoglobin Concent 35 g/dL (31-37) Red Cell Distribution Width 12.3 % (11.5-14.5) Platelet Count 167 x10^3/uL (140-400) Neutrophils (%) (Auto) 81 % (31-73) Lymphocytes (%) (Auto) 5 % (24-48) Monocytes (%) (Auto) 14 % (0-9) Eosinophils (%) (Auto) 0 % (0-3) Basophils (%) (Auto) 1 % (0-3) Neutrophils # (Auto) 10.8 x10^3/uL (1.8-7.7) Lymphocytes # (Auto) 0.6 x10^3/uL (1.0-4.8) Monocytes # (Auto) 1.8 x10^3/uL (0.0-1.1) Eosinophils # (Auto) 0.0 x10^3/uL (0.0-0.7) Basophils # (Auto) 0.1 x10^3/uL (0.0-0.2) Segmented Neutrophils % 33 % (35-66) Band Neutrophils % 40 % (0-9) Lymphocytes % 8 % (24-48) Monocytes % 12 % (0-10) Metamyelocytes % 5 % (0-0) Myelocytes % 2 % (0-0) Toxic Granulation Mod Platelet Estimate Adequate (ADEQUATE) Sodium Level 131 mmol/L (136-145) Potassium Level 4.0 mmol/L (3.5-5.1) Chloride Level 90 mmol/L (98-107) Carbon Dioxide Level 25 mmol/L (21-32) Anion Gap 16 (6-14) Blood Urea Nitrogen 20 mg/dL (8-26) Creatinine 1.4 mg/dL (0.7-1.3) Estimated GFR (Cockcroft-Gault) 57.0 BUN/Creatinine Ratio 14 (6-20) Glucose Level 158 mg/dL (70-99) Lactic Acid Level 4.1 mmol/L (0.4-2.0) Calcium Level 8.0 mg/dL (8.5-10.1) Magnesium Level 2.1 mg/dL (1.8-2.4) Total Bilirubin 4.2 mg/dL (0.2-1.0) Aspartate Amino Transf (AST/SGOT) 50 U/L (15-37) Alanine Aminotransferase (ALT/SGPT) 90 U/L (16-63) Alkaline Phosphatase 191 U/L (46-116) Total Protein 7.6 g/dL (6.4-8.2) Albumin 2.3 g/dL (3.4-5.0) Albumin/Globulin Ratio 0.4 (1.0-1.7) Lipase 56 U/L (73-393) Urine Collection Type Unknown Urine Color [place] Urine Clarity Clear Urine pH 5.5 (<5.0-8.0) Urine Specific [place] >=1.030 (1.000-1.030) Urine Protein 100 mg/dL (NEG-TRACE) Urine Glucose (UA) Negative mg/dL (NEG) Urine Ketones (Stick) Trace mg/dL (NEG) Urine Blood Negative (NEG) Urine Nitrite (NEG) Urine Bilirubin Large (NEG) Urine Urobilinogen Dipstick 4.0 mg/dL (0.2 mg/dL) Urine Leukocyte Esterase Small (NEG) Urine RBC 0 /HPF (0-2) Urine WBC 1-4 /HPF (0-4) Urine Squamous Epithelial Cells Few /LPF Urine Bacteria 0 /HPF (0-FEW) Urine Hyaline Casts Many /HPF Urine Mucus Mod /LPF SARS-CoV-2 Antigen (Rapid) Negative (NEGATIVE) Images: Images PROCEDURE: CT ABD PELV W/ORAL&IV CONTRAST EXAM: CT ABDOMEN/PELVIS WITH CONTRAST. HISTORY: Left gluteal draining abscess. TECHNIQUE: Computed tomography of the abdomen and pelvis was performed after the intravenous administration of Isovue-370. One or more of the following individualized dose reduction techniques were utilized for this examination: 1. Automated exposure control. 2. Adjustment of the mA and/or kV according to patient size. 3. Use of iterative reconstruction technique. COMPARISON: None. FINDINGS: Lung windows through the visualized portions of the bases reveal linear opacities in the lung bases likely reflecting atelectasis. Bone windows reveal no suspicious lesions. The liver, spleen, gallbladder, pancreas, adrenal glands and kidneys are unremarkable. There are no pathologically enlarged lymph nodes. The appendix is not inflamed. There is no small bowel obstruction. There is soft tissue swelling and soft tissue gas throughout the subcutaneous compartment the left proximal/medial thigh, extending into the left inguinal crease and the left lower quadrant. There is no extension into the pelvis. There is no drainable collection. Small left renal lymph nodes are likely reactive. IMPRESSION: 1. Soft tissue gas and swelling within the left proximal/medial thigh extending into the left inguinal crease. Correlate clinically to exclude Jacky's gangrene. No drainable collection. 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 Discussed with RN and SW. Justifications for Admission Other Justification WINNIE CAN MD Nov 16, 2021 08:21
[2021-11-16] MEDS ORDERED: DOCUSATE SODIUM 100 MG CAPSULE. PO PRN (09:15)
[2021-11-16] MEDS ORDERED: MORPHINE SULFATE 2 MG/ML INJ. IVP PRN (09:15)
[2021-11-16] MEDS ORDERED: PROCHLORPERAZINE 10 MG/2 ML VIAL. IV PRN (09:15)
[2021-11-16] MEDS ORDERED: LORazepam 0.5 MG TABLET PO PRN (09:15)
[2021-11-16] MEDS ORDERED: DEXTROSE 50% 25 GM / 50ML DISP.SYRIN. IV PRN (09:15)
[2021-11-16] MEDS ORDERED: SENNOSIDES 8.6 MG TABLET PO PRN (09:15)
[2021-11-16] MEDS ORDERED: ZOLPIDEM 5 MG TABLET. PO PRN (09:15)
[2021-11-16] MEDS: IV NORMAL SALINE 1000ML BAG 1,000 ML IV SCH ×2 (10:00→20:00)
[2021-11-16] MEDS ORDERED: fentaNYL PF VIAL 100 MCG/2 ML VIAL IVP PRN ×2 (10:15)
[2021-11-16] MEDS ORDERED: HYDROmorphone 2 MG/ML INJ. IVP PRN (10:15)
[2021-11-16] MEDS ORDERED: IV RINGERS,LACTATED 1000ML 1,000 ML IV SCH (10:15)
[2021-11-16] MEDS ORDERED: PROCHLORPERAZINE 10 MG/2 ML VIAL. IVP PRN (10:15)
[2021-11-16] MEDS: NOREPINEPHRINE VIAL 8 MG in IV DEXTROSE 5% 250 ML IV PRN ×2 (10:33→22:44)
[2021-11-16] MEDS ORDERED: VASOPRESSIN - VASOSTRICT 20 UNIT in IV DEXTROSE 5% 100ML 100 ML IV PRN (11:00)
[2021-11-16] MEDS ORDERED: fentaNYL PF VIAL 100 MCG/2 ML VIAL ONE ×2 (11:53→11:55)
[2021-11-16] MEDS ORDERED: LIDOCAINE 2% PF 5 ML VIAL. ONE (11:57)
[2021-11-16] MEDS ORDERED: PROPOFOL 10 MG/ML (20ML) VIAL. IV ONE (11:57)
[2021-11-16] MEDS ORDERED: SEVOFLURANE 61 TO 120 MINUTES. IH ONE (12:06)
--- NOTE | 2021-11-16 12:13 | PDOC4 ---
Operative Note Operative Note Date: November 16, 2021 at 12:10 PM Preoperative diagnosis: Left thigh groin abscess Postoperative diagnosis: Same Procedure: Incision and drainage with debridement of abscess and infected tissue to the fascia Specimen: Cultures Surgeon: Tye Dictation: Patient is a 36-year-old male is admitted to the hospital with an abscess of the left thigh and groin area CT scan was showing air within the subcu space. Procedure of incision and drainage with debridement was explained to the patient detail risk benefits were also discussed including bleeding infection alternatives this procedure also discussed with the patient who seemed to understand and gave a verbal written consent to have procedure performed. Patient was taken to the operating room placed in supine position general anesthesia was initiated once patient was sleeping intubated anesthesia placed a central line. Patient was then placed in lithotomy positioning and his perineum was prepped and draped in usual sterile fashion using Betadine scrub and solution. Area over the left groin and junction with the thigh was incised with a 11 blade scalpel purulent material was expressed this was cultured. The necrotic skin was debrided sharply down to fat which was also debrided sharply a lot of this was debrided all the way down to the muscle belly. Once all necrotic tissue had been debrided sharply the wound was then irrigated with copious amounts of normal saline with Betadine solution after this the wound was then irrigated with just normal saline. The wound was then packed with iodoform Nu Gauze and dressed with ABD and mesh pants. Patient was awakened and extubated in the operating room taken to recovery in stable condition all sponge instrument needle counts listed as correct estimated blood loss 30 mL. KASIE FORRESTER MD Nov 16, 2021 12:13
[2021-11-16] MEDS: MORPHINE SULFATE 2 MG/ML INJ. IVP PRN ×2 (12:44→12:55)
--- NOTE | 2021-11-16 12:51 | RAD ---
Study: XR CHEST 1V Indication: Postop. Line placement. Comparison: None. Findings: Right IJ central venous catheter tip terminates within the distal SVC. Mild bilateral ill-defined inf iltrates such as perihilar in location and at the left costophrenic angle. No layering effusion or pn eumothorax. The cardiomediastinal silhouette is within normal limits considering AP technique. Impression: 1. Right IJ central venous catheter tip terminates within the distal SVC. 2. Nonspecific streaky densities emanating from the hilum and ill-defined infiltrates at the left jose g base. The findings could be related to an atypical infectious process, atelectasis or mild intersti tial edema. Electronically signed by: SARAH BACH MD (11/16/2021 12:48 PM) [facility]
[2021-11-16] MEDS: CLINDAMYCIN 600MG PREMIX 50 ML IV SCH ×2 (14:00→22:02)
[2021-11-16] MEDS ORDERED: VANCOMYCIN 1.25 GM in IV NORMAL SALINE 250ML 250 ML IV SCH (16:00)
[2021-11-16] MEDS: ENOXAPARIN 40 MG/0.4 ML SYRINGE. SQ SCH (17:44)
--- NOTE | 2021-11-16 19:31 | CONS ---
DATE OF CONSULTATION: 11/16/2021 REQUESTING PHYSICIAN: Dr. Persaud. REASON FOR CONSULTATION: Sepsis. HISTORY OF PRESENT ILLNESS: This is a 36-year-old gentleman who presented to the ED with having a boil on his gluteal area, had been festering for 2 weeks, and then he started a lot of drainage coming out and he came in. The patient had chills, fever and significant pain. The patient was evaluated in the ER, white count is 13.3. Lactic acid 4.1. His CT scan of the abdomen and pelvis actually showed soft tissue gas and swelling within the left proximal medial thigh, extending into the left inguinal crease, did not include the scrotum. Very early this morning, I talked to the ER physician and started vancomycin, Zosyn and clindamycin. The patient was taken to the OR today by Dr. Gamble and I and D was done. The patient this morning required vasopressor support. The patient is alert, awake. Other than pain, he is feeling much better. Vasopressor need has been going down. PAST MEDICAL HISTORY: Essentially unremarkable. Does not have diabetes. SOCIAL HISTORY: Negative for smoking, alcohol, illicit drug use. ALLERGIES: No known drug allergies. CURRENT MEDICATIONS: Reviewed. REVIEW OF SYSTEMS: As in HPI. All other systems reviewed are negative. PHYSICAL EXAMINATION: GENERAL: Alert, oriented gentleman, not in distress. VITAL SIGNS: Stable. Temperature 98.5, pulse 109, respirations 16, blood pressure 140/71. The patient did have 102.2 temperature elevation earlier. HEENT: Both pupils are round and reacting. No conjunctival lesion. No lesion in the mouth. NECK: Supple. No JVP, no lymphadenopathy. LUNGS: Clear. HEART: S1, S2, regular. ABDOMEN: Soft, nontender. No organomegaly. EXTREMITIES: No edema, cyanosis. SKIN: Unremarkable. His scrotum is unremarkable. His post-surgical dressing was not opened. LABORATORY DATA: White count is 13.3, platelets are 167,000. BUN and creatinine is 20 and 1.4. Lactic acid 4.1. Urinalysis unremarkable. COVID negative. CT as I mentioned. Chest x-ray is nonspecific sticky density into the hilum and ill-defined infiltrate in the left lung base. IMPRESSION: 1. Left thigh and groin abscess, status post incision and drainage. 2. Lactic acidosis/sepsis. 3. Leukocytosis. 4. Fever. 5. Hypotension, requiring vasopressor support. 6. Mild acute kidney injury. RECOMMENDATIONS: We will change vancomycin to the Zyvox. We will continue with Zosyn and clindamycin for the time being, supportive care. Follow the cultures and we will continue to adjust. Thank you very much, Dr. Persaud, for giving me opportunity to participate in this patient's care. ERINN DR: Bill TID: [id number]
[2021-11-17] VITALS (27 sets, daily range): BP systolic 84–138; BP diastolic 38–86
[2021-11-17] MEDS: PIPERACILLIN/TAZOBACTAM 3.375 GM in IV NORMAL SALINE 50ML 50 ML IV SCH ×4 (00:08→17:48)
[2021-11-17] MEDS: ACETAMINOPHEN 325 MG TABLET. PO PRN (00:13)
[2021-11-17] MEDS: IV NORMAL SALINE 1000ML BAG 1,000 ML IV SCH ×2 (04:12→19:27)
[2021-11-17] MEDS: CLINDAMYCIN 600MG PREMIX 50 ML IV SCH (05:42)
[2021-11-17 05:50] LABS: BASO % 0 % (0-3); EOS % 0 % (0-3); HEMATOCRIT 37.3 % (39.0-53.0); LYMPH # 0.6 x10^3/uL (1.0-4.8); LYMPH % 7 % (24-48); MEAN CORPUSCULAR HEMOGLOBIN 32 pg (25-35); MEAN CORPUSCULAR HGB CONC 35 g/dL (31-37); MEAN CORPUSCULAR VOLUME 92 fL (79-100); MONO # 0.6 x10^3/uL (0.0-1.1); MONO % 7 % (0-9); NEUT # 8.1 x10^3/uL (1.8-7.7); NEUT % 87 % (31-73); PLATELET COUNT 106 x10^3/uL (140-400); RED BLOOD COUNT 4.06 x10^6/uL (4.30-5.70); RED CELL DISTRIBUTION WIDTH 12.2 % (11.5-14.5); WHITE BLOOD COUNT 9.4 x10^3/uL (4.0-11.0)
[2021-11-17 06:23] LABS: CALCIUM 6.2 mg/dL (8.5-10.1); GFR 84.1; MAGNESIUM 1.7 mg/dL (1.8-2.4)
[2021-11-17 06:27] LABS: POTASSIUM 2.4 mmol/L (3.5-5.1)
[2021-11-17] MEDS ORDERED: MAGNESIUM SULFATE 2GM 50 ML IV ONE (07:45)
[2021-11-17] MEDS: POTASSIUM CHLORIDE 20 MEQ TABLET.ER. PO SCH ×4 (08:22→14:54)
[2021-11-17] MEDS: LACTOBACILLUS RHAMNOSUS GG 1 CAPSULE. PO SCH ×2 (08:22→20:55)
[2021-11-17] MEDS: oxyCODONE/APAP 5/325 1 TAB TABLET PO PRN ×2 (08:26→18:40)
--- NOTE | 2021-11-17 08:39 | PDOC ---
Infectious Disease Note Subjective: Subjective Pt had T max of 103 *F This morning says feels ok still has pain mainly left lower extremity especially thigh and left lower abdomen Denies chills, fever this morning, nausea, vomiting, symptoms Vital Signs: Vital Signs Vital Signs Date Time Temp Pulse Resp B/P (MAP) Pulse Ox O2 Delivery O2 Flow Rate FiO2 11/17/21 08:26 24 97 Room Air 11/17/21 06:00 102 127/86 11/17/21 04:00 99.3 99.3 11/16/21 17:43 6.0 Physical Exam: PHYSICAL EXAM GENERAL: Alert, oriented gentleman, not in distress. HEENT: Both pupils are round and reacting. No conjunctival lesion. No lesion in the mouth. NECK: Supple. No JVP, no lymphadenopathy. LUNGS: Clear. HEART: S1, S2, regular. ABDOMEN: Soft, nontender. No organomegaly. EXTREMITIES: No edema, cyanosis. SKIN: Unremarkable. His scrotum is unremarkable. His post-surgical dressing was not opened. Left lower extremity redness swelling tenderness present, improving per patient Left lower abdomen swelling redness present improving Medications: Inpatient Meds: Medications reviewed. Labs: Lab Laboratory Tests Test 11/16/21 10:15 11/16/21 14:05 11/17/21 05:35 Lactic Acid Level 2.1 mmol/L (0.4-2.0) 2.5 mmol/L (0.4-2.0) White Blood Count 9.4 x10^3/uL (4.0-11.0) Red Blood Count 4.06 x10^6/uL (4.30-5.70) Hemoglobin 13.0 g/dL (13.0-17.5) Hematocrit 37.3 % (39.0-53.0) Mean Corpuscular Volume 92 fL (79-100) Mean Corpuscular Hemoglobin 32 pg (25-35) Mean Corpuscular Hemoglobin Concent 35 g/dL (31-37) Red Cell Distribution Width 12.2 % (11.5-14.5) Platelet Count 106 x10^3/uL (140-400) Neutrophils (%) (Auto) 87 % (31-73) Lymphocytes (%) (Auto) 7 % (24-48) Monocytes (%) (Auto) 7 % (0-9) Eosinophils (%) (Auto) 0 % (0-3) Basophils (%) (Auto) 0 % (0-3) Neutrophils # (Auto) 8.1 x10^3/uL (1.8-7.7) Lymphocytes # (Auto) 0.6 x10^3/uL (1.0-4.8) Monocytes # (Auto) 0.6 x10^3/uL (0.0-1.1) Eosinophils # (Auto) 0.0 x10^3/uL (0.0-0.7) Basophils # (Auto) 0.0 x10^3/uL (0.0-0.2) Sodium Level 136 mmol/L (136-145) Potassium Level 2.4 mmol/L (3.5-5.1) Chloride Level 100 mmol/L (98-107) Carbon Dioxide Level 23 mmol/L (21-32) Anion Gap 13 (6-14) Blood Urea Nitrogen 8 mg/dL (8-26) Creatinine 1.0 mg/dL (0.7-1.3) Estimated GFR (Cockcroft-Gault) 84.1 Glucose Level 125 mg/dL (70-99) Calcium Level 6.2 mg/dL (8.5-10.1) Phosphorus Level 3.0 mg/dL (2.6-4.7) Magnesium Level 1.7 mg/dL (1.8-2.4) Creatine Kinase 149 U/L (39-308) Objective: Assessment: 1. Left thigh and groin abscess, status post incision and drainage. 2. Lactic acidosis/sepsis. 3. Leukocytosis. 4. Fever. 5. Hypotension, requiring vasopressor support. 6. Mild acute kidney injury. Plan: Plan of Care Cont Zosyn, Zyvox and Clindamycin supportive care. Follow the cultures NITZA SORIANO MD Nov 17, 2021 08:39
[2021-11-17] MEDS: MORPHINE SULFATE 2 MG/ML INJ. IV PRN (09:40)
--- NOTE | 2021-11-17 09:57 | NUR ---
Wound/Ostomy Care Wound Type/Assessment: Patient seen per wound care consult. See wound assessment. Patient premedicated. Patient had I&D of abscess to left ischium on 11/16/20. Packing removed and wound cleansed, assessed, measured, and pictured. Per Dr. Gamble continue with Iodoform gauze packing and cover with ABD pad. Treatment Recommendations/Plan: Repacked with 1/4 inch Iodoform gauze packing, covered with ABD pad, and mesh underwear applied. Change daily. Education provided: Patient educated regarding POC and PU prevention. Offloading surface/device: Patient is independent. Recommended Referrals/Tests: Patient to follow up with surgeon following discharge as he is not able to come to the wound clinic due to insurance. Discharge Recommendations for dressings: Continue with current treatment plan. No other wounds noted. Wound care will follow up on 11/24/21.
--- NOTE | 2021-11-17 11:15 | PDOC ---
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 IV electrolyte replacement as needed General surgery consult for urgent formal I&D Continue empiric IV antibiotics Obtain intraoperative wound culture Pending blood cultures Heparin for DVT prophylaxis NPO CODE STATUS full Discussed with RN and SW Disposition inpatient management as above DPOA: Cousin A total of 31 minutes of critical care time was spent in reviewing chart, labs, and images. Discussed with RN and SW. History of Present Illness History of Present Illness 36-year-old male presents with history of a "boil on his buttock for the past 2 weeks and states that he scratched and popped it a while ago. Endorses chills and fevers and extreme pain in his left thigh. Denies any chest pain, shortness of breath, abdominal pain, diarrhea, dysuria or bloody diarrhea. No relative past medical history of diabetes or hypertension. Former smoker but quit a few years ago. 11/17/2021 No acute events overnight. Patient underwent formal I&D yesterday. Pain is well controlled. Weaned off vasopressor. VSS. Patient's chart, labs, images were reviewed and discussed with RN Vitals/I&O Vitals/I&O: Vital Signs Date Time Temp Pulse Resp B/P (MAP) Pulse Ox O2 Delivery O2 Flow Rate FiO2 11/17/21 10:10 95 Room Air 11/17/21 10:00 110 32 93/50 11/17/21 08:00 98.9 98.9 11/16/21 17:43 6.0 I & O 11/16/21 11/16/21 11/17/21 15:00 23:00 07:00 Intake Total 880 ml 350 ml 2127.28 ml Output Total 380 ml 875 ml 935 ml Balance 500 ml -525 ml 1192.28 ml Physical Exam Physical Exam: GENERAL: Alert, oriented gentleman, not in distress. HEENT: Both pupils are round and reacting. No conjunctival lesion. No lesion in the mouth. NECK: Supple. No JVP, no lymphadenopathy. LUNGS: Clear. HEART: S1, S2, regular. ABDOMEN: Soft, nontender. No organomegaly. EXTREMITIES: No edema, cyanosis. SKIN: Unremarkable. His scrotum is unremarkable. His post-surgical dressing was not opened. Left lower extremity redness swelling tenderness present, improving per patient Left lower abdomen swelling redness present improving General: Alert, Oriented X3, Cooperative, moderate distress Heart: Regular rate, No murmurs Abdomen: Normal bowel sounds, Soft, No tenderness Extremities: Other (Erythema and swelling left thigh groin area very tender to palpation) Skin: No significant lesion, Other (Erythema improved. Dressings are clear dry and intact) Labs Labs: Laboratory Tests Test 11/16/21 14:05 11/17/21 05:35 Lactic Acid Level 2.5 mmol/L (0.4-2.0) White Blood Count 9.4 x10^3/uL (4.0-11.0) Red Blood Count 4.06 x10^6/uL (4.30-5.70) Hemoglobin 13.0 g/dL (13.0-17.5) Hematocrit 37.3 % (39.0-53.0) Mean Corpuscular Volume 92 fL (79-100) Mean Corpuscular Hemoglobin 32 pg (25-35) Mean Corpuscular Hemoglobin Concent 35 g/dL (31-37) Red Cell Distribution Width 12.2 % (11.5-14.5) Platelet Count 106 x10^3/uL (140-400) Neutrophils (%) (Auto) 87 % (31-73) Lymphocytes (%) (Auto) 7 % (24-48) Monocytes (%) (Auto) 7 % (0-9) Eosinophils (%) (Auto) 0 % (0-3) Basophils (%) (Auto) 0 % (0-3) Neutrophils # (Auto) 8.1 x10^3/uL (1.8-7.7) Lymphocytes # (Auto) 0.6 x10^3/uL (1.0-4.8) Monocytes # (Auto) 0.6 x10^3/uL (0.0-1.1) Eosinophils # (Auto) 0.0 x10^3/uL (0.0-0.7) Basophils # (Auto) 0.0 x10^3/uL (0.0-0.2) Sodium Level 136 mmol/L (136-145) Potassium Level 2.4 mmol/L (3.5-5.1) Chloride Level 100 mmol/L (98-107) Carbon Dioxide Level 23 mmol/L (21-32) Anion Gap 13 (6-14) Blood Urea Nitrogen 8 mg/dL (8-26) Creatinine 1.0 mg/dL (0.7-1.3) Estimated GFR (Cockcroft-Gault) 84.1 Glucose Level 125 mg/dL (70-99) Calcium Level 6.2 mg/dL (8.5-10.1) Phosphorus Level 3.0 mg/dL (2.6-4.7) Magnesium Level 1.7 mg/dL (1.8-2.4) Creatine Kinase 149 U/L (39-308) Assessment and Plan Assessmemt and Plan Problems Medical Problems: (1) Elevated LFTs Status: Acute (2) Fourniers gangrene Status: Acute (3) Hyperbilirubinemia Status: Acute (4) Sepsis Status: Acute (5) Septic shock Status: Acute Comment Review of Relevant I have reviewed the following items fito (where applicable) has been applied. Medications: Current Medications Medications (Trade) Dose Ordered Sig/Maria De Jesus Route PRN Reason Start Time Stop Time Status Last Admin Dose Admin Enoxaparin Sodium (Lovenox 40mg Syringe) 40 mg Q24H SQ 11/16/21 16:00 11/16/21 17:44 Clindamycin Phosphate 50 ml @ 100 mls/hr Q8HRS IV 11/16/21 14:00 11/17/21 07:43 DC 11/17/21 05:42 Linezolid/Dextrose 300 ml @ 300 mls/hr Q12HR IV 11/16/21 21:00 11/17/21 08:24 Potassium Chloride (Klor-Con) 40 meq Q2HR PO 11/17/21 08:00 11/17/21 14:01 11/17/21 10:51 Magnesium Sulfate 50 ml @ 25 mls/hr 1X ONCE IV 11/17/21 07:45 11/17/21 09:44 DC 11/17/21 08:24 Lactobacillus Rhamnosus (Culturelle) 1 cap BID PO 11/17/21 09:00 11/17/21 08:22 Justifications for Admission Other Justification Sepsis with left thigh abscess WINNIE CAN MD Nov 17, 2021 11:15
--- NOTE | 2021-11-17 12:56 | PDOC ---
BERNARDO BLANCAS TEACHER [employer] 11/17/21 1256: SURGICAL PROGRESS NOTE DATE: 11/17/21 TIME: 12:54 Subjective doing ok on the phone Vital Signs Vital Signs Date Time Temp Pulse Resp B/P (MAP) Pulse Ox O2 Delivery O2 Flow Rate FiO2 11/17/21 12:00 100 24 95/57 98 Room Air 11/17/21 08:00 98.9 98.9 11/16/21 17:43 6.0 I&O Intake and Output 11/17/21 07:00 Intake Total 3357.28 ml Output Total 2190 ml Balance 1167.28 ml Intake Oral 30 ml IV Total 3327.28 ml Output Urine Total 2160 ml Estimated Blood Loss 30 ml General: Alert, Cooperative Skin: Other (dressing) Labs Laboratory Tests Test 11/15/21 22:26 11/16/21 00:05 11/16/21 02:40 11/16/21 10:15 White Blood Count 13.3 x10^3/uL (4.0-11.0) Red Blood Count 5.43 x10^6/uL (4.30-5.70) Hemoglobin 17.8 g/dL (13.0-17.5) Hematocrit 50.7 % (39.0-53.0) Mean Corpuscular Volume 94 fL (79-100) Mean Corpuscular Hemoglobin 33 pg (25-35) Mean Corpuscular Hemoglobin Concent 35 g/dL (31-37) Red Cell Distribution Width 12.3 % (11.5-14.5) Platelet Count 167 x10^3/uL (140-400) Neutrophils (%) (Auto) 81 % (31-73) Lymphocytes (%) (Auto) 5 % (24-48) Monocytes (%) (Auto) 14 % (0-9) Eosinophils (%) (Auto) 0 % (0-3) Basophils (%) (Auto) 1 % (0-3) Neutrophils # (Auto) 10.8 x10^3/uL (1.8-7.7) Lymphocytes # (Auto) 0.6 x10^3/uL (1.0-4.8) Monocytes # (Auto) 1.8 x10^3/uL (0.0-1.1) Eosinophils # (Auto) 0.0 x10^3/uL (0.0-0.7) Basophils # (Auto) 0.1 x10^3/uL (0.0-0.2) Segmented Neutrophils % 33 % (35-66) Band Neutrophils % 40 % (0-9) Lymphocytes % 8 % (24-48) Monocytes % 12 % (0-10) Metamyelocytes % 5 % (0-0) Myelocytes % 2 % (0-0) Toxic Granulation Mod Platelet Estimate Adequate (ADEQUATE) Sodium Level 131 mmol/L (136-145) Potassium Level 4.0 mmol/L (3.5-5.1) Chloride Level 90 mmol/L (98-107) Carbon Dioxide Level 25 mmol/L (21-32) Anion Gap 16 (6-14) Blood Urea Nitrogen 20 mg/dL (8-26) Creatinine 1.4 mg/dL (0.7-1.3) Estimated GFR (Cockcroft-Gault) 57.0 BUN/Creatinine Ratio 14 (6-20) Glucose Level 158 mg/dL (70-99) Lactic Acid Level 4.1 mmol/L (0.4-2.0) 2.1 mmol/L (0.4-2.0) Calcium Level 8.0 mg/dL (8.5-10.1) Magnesium Level 2.1 mg/dL (1.8-2.4) Total Bilirubin 4.2 mg/dL (0.2-1.0) Aspartate Amino Transf (AST/SGOT) 50 U/L (15-37) Alanine Aminotransferase (ALT/SGPT) 90 U/L (16-63) Alkaline Phosphatase 191 U/L (46-116) Total Protein 7.6 g/dL (6.4-8.2) Albumin 2.3 g/dL (3.4-5.0) Albumin/Globulin Ratio 0.4 (1.0-1.7) Lipase 56 U/L (73-393) Urine Collection Type Unknown Urine Color [place] Urine Clarity Clear Urine pH 5.5 (<5.0-8.0) Urine Specific [place] >=1.030 (1.000-1.030) Urine Protein 100 mg/dL (NEG-TRACE) Urine Glucose (UA) Negative mg/dL (NEG) Urine Ketones (Stick) Trace mg/dL (NEG) Urine Blood Negative (NEG) Urine Nitrite (NEG) Urine Bilirubin Large (NEG) Urine Urobilinogen Dipstick 4.0 mg/dL (0.2 mg/dL) Urine Leukocyte Esterase Small (NEG) Urine RBC 0 /HPF (0-2) Urine WBC 1-4 /HPF (0-4) Urine Squamous Epithelial Cells Few /LPF Urine Bacteria 0 /HPF (0-FEW) Urine Hyaline Casts Many /HPF Urine Mucus Mod /LPF SARS-CoV-2 RNA (NORA) Negative (Negative) SARS-CoV-2 Antigen (Rapid) Negative (NEGATIVE) Test 11/16/21 14:05 11/17/21 05:35 Lactic Acid Level 2.5 mmol/L (0.4-2.0) White Blood Count 9.4 x10^3/uL (4.0-11.0) Red Blood Count 4.06 x10^6/uL (4.30-5.70) Hemoglobin 13.0 g/dL (13.0-17.5) Hematocrit 37.3 % (39.0-53.0) Mean Corpuscular Volume 92 fL (79-100) Mean Corpuscular Hemoglobin 32 pg (25-35) Mean Corpuscular Hemoglobin Concent 35 g/dL (31-37) Red Cell Distribution Width 12.2 % (11.5-14.5) Platelet Count 106 x10^3/uL (140-400) Neutrophils (%) (Auto) 87 % (31-73) Lymphocytes (%) (Auto) 7 % (24-48) Monocytes (%) (Auto) 7 % (0-9) Eosinophils (%) (Auto) 0 % (0-3) Basophils (%) (Auto) 0 % (0-3) Neutrophils # (Auto) 8.1 x10^3/uL (1.8-7.7) Lymphocytes # (Auto) 0.6 x10^3/uL (1.0-4.8) Monocytes # (Auto) 0.6 x10^3/uL (0.0-1.1) Eosinophils # (Auto) 0.0 x10^3/uL (0.0-0.7) Basophils # (Auto) 0.0 x10^3/uL (0.0-0.2) Sodium Level 136 mmol/L (136-145) Potassium Level 2.4 mmol/L (3.5-5.1) Chloride Level 100 mmol/L (98-107) Carbon Dioxide Level 23 mmol/L (21-32) Anion Gap 13 (6-14) Blood Urea Nitrogen 8 mg/dL (8-26) Creatinine 1.0 mg/dL (0.7-1.3) Estimated GFR (Cockcroft-Gault) 84.1 Glucose Level 125 mg/dL (70-99) Calcium Level 6.2 mg/dL (8.5-10.1) Phosphorus Level 3.0 mg/dL (2.6-4.7) Magnesium Level 1.7 mg/dL (1.8-2.4) Creatine Kinase 149 U/L (39-308) Laboratory Tests Test 11/16/21 14:05 11/17/21 05:35 Lactic Acid Level 2.5 mmol/L (0.4-2.0) White Blood Count 9.4 x10^3/uL (4.0-11.0) Red Blood Count 4.06 x10^6/uL (4.30-5.70) Hemoglobin 13.0 g/dL (13.0-17.5) Hematocrit 37.3 % (39.0-53.0) Mean Corpuscular Volume 92 fL (79-100) Mean Corpuscular Hemoglobin 32 pg (25-35) Mean Corpuscular Hemoglobin Concent 35 g/dL (31-37) Red Cell Distribution Width 12.2 % (11.5-14.5) Platelet Count 106 x10^3/uL (140-400) Neutrophils (%) (Auto) 87 % (31-73) Lymphocytes (%) (Auto) 7 % (24-48) Monocytes (%) (Auto) 7 % (0-9) Eosinophils (%) (Auto) 0 % (0-3) Basophils (%) (Auto) 0 % (0-3) Neutrophils # (Auto) 8.1 x10^3/uL (1.8-7.7) Lymphocytes # (Auto) 0.6 x10^3/uL (1.0-4.8) Monocytes # (Auto) 0.6 x10^3/uL (0.0-1.1) Eosinophils # (Auto) 0.0 x10^3/uL (0.0-0.7) Basophils # (Auto) 0.0 x10^3/uL (0.0-0.2) Sodium Level 136 mmol/L (136-145) Potassium Level 2.4 mmol/L (3.5-5.1) Chloride Level 100 mmol/L (98-107) Carbon Dioxide Level 23 mmol/L (21-32) Anion Gap 13 (6-14) Blood Urea Nitrogen 8 mg/dL (8-26) Creatinine 1.0 mg/dL (0.7-1.3) Estimated GFR (Cockcroft-Gault) 84.1 Glucose Level 125 mg/dL (70-99) Calcium Level 6.2 mg/dL (8.5-10.1) Phosphorus Level 3.0 mg/dL (2.6-4.7) Magnesium Level 1.7 mg/dL (1.8-2.4) Creatine Kinase 149 U/L (39-308) Problem List Problems Medical Problems: (1) Elevated LFTs Status: Acute (2) Fourniers gangrene Status: Acute (3) Hyperbilirubinemia Status: Acute (4) Sepsis Status: Acute (5) Septic shock Status: Acute Assessment/Plan reviewed wound note, continue wound care, abx Justicifation of Admission Dx: Justifications for Admission: Justification of Admission Dx: Yes Comments: Left thigh groin abscess KASIE FORRESTER MD 11/17/21 1722: SURGICAL PROGRESS NOTE Assessment/Plan Agree with Quynh's assessment and plan BERNARDO BLANCAS APRN Nov 17, 2021 12:56 KASIE FORRESTER MD Nov 17, 2021 17:22
[2021-11-17] MEDS: CLINDAMYCIN 900MG PREMIX 50 ML IV SCH ×2 (14:54→22:14)
--- NOTE | 2021-11-17 16:42 | NUR ---
SS following for discharge planning. SS reviewed pt chart and discussed with pt RN. Pt is from home and is currently on room air. COVID19 negative. Pt had debridement of abscess on 11/16/2021. ID following. Pt on IV Clindamycin, IV Zosyn, and IV Zyvox. Wound care following. Self pay. Med assist following. SS will continue to follow for discharge planning.
[2021-11-17] MEDS: ENOXAPARIN 40 MG/0.4 ML SYRINGE. SQ SCH (17:48)
[2021-11-18] VITALS (25 sets, daily range): BP systolic 92–116; BP diastolic 44–77
[2021-11-18] MEDS: PIPERACILLIN/TAZOBACTAM 3.375 GM in IV NORMAL SALINE 50ML 50 ML IV SCH ×5 (00:16→23:55)
[2021-11-18] MEDS: ACETAMINOPHEN 325 MG TABLET. PO PRN (01:35)
[2021-11-18] MEDS: IV NORMAL SALINE 1000ML BAG 1,000 ML IV SCH ×3 (02:21→22:00)
[2021-11-18] MEDS: CLINDAMYCIN 900MG PREMIX 50 ML IV SCH ×3 (05:29→22:10)
[2021-11-18 05:37] LABS: BASO % 0 % (0-3); EOS % 0 % (0-3); HEMATOCRIT 33.9 % (39.0-53.0); HEMOGLOBIN 11.7 g/dL (13.0-17.5); LYMPH # 0.7 x10^3/uL (1.0-4.8); LYMPH % 8 % (24-48); MEAN CORPUSCULAR HEMOGLOBIN 32 pg (25-35); MEAN CORPUSCULAR HGB CONC 34 g/dL (31-37); MEAN CORPUSCULAR VOLUME 94 fL (79-100); MONO # 0.3 x10^3/uL (0.0-1.1); MONO % 4 % (0-9); NEUT # 7.8 x10^3/uL (1.8-7.7); NEUT % 88 % (31-73); PLATELET COUNT 87 x10^3/uL (140-400); RED BLOOD COUNT 3.62 x10^6/uL (4.30-5.70); RED CELL DISTRIBUTION WIDTH 12.5 % (11.5-14.5); WHITE BLOOD COUNT 8.8 x10^3/uL (4.0-11.0)
[2021-11-18 05:59] LABS: CALCIUM 6.6 mg/dL (8.5-10.1); GFR 84.1; MAGNESIUM 1.9 mg/dL (1.8-2.4)
[2021-11-18 06:07] LABS: POTASSIUM 2.9 mmol/L (3.5-5.1)
[2021-11-18] MEDS ORDERED: POTASSIUM CHLORIDE 20MEQ 100 ML IV ONE (07:00)
--- NOTE | 2021-11-18 07:39 | PDOC ---
Infectious Disease Note Subjective: Subjective Pt complains of pain in the left thigh Been off Levophed since yesterday Fever pattern improvwed T max of 101.8 degrees Fahrenheit Vital Signs: Vital Signs Vital Signs Date Time Temp Pulse Resp B/P (MAP) Pulse Ox O2 Delivery O2 Flow Rate FiO2 11/18/21 06:02 102 28 102/53 (69) 98 Room Air 11/18/21 04:43 99.9 99.9 Physical Exam: PHYSICAL EXAM GENERAL: Alert, oriented gentleman, not in distress. HEENT: Both pupils are round and reacting. No conjunctival lesion. No lesion in the mouth. NECK: Supple. No JVP, LUNGS: Clear. HEART: S1, S2, regular. ABDOMEN: Mildly distended, mildly tender diffuse more on the left side, bowel sounds present EXTREMITIES: Left lower extremity redness, swelling present more on the medial aspect of the thigh and lower leg SKIN: Unremarkable. His scrotum is unremarkable. His post-surgical dressing was not opened. 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 Labs: Lab Laboratory Tests Test 11/17/21 19:10 11/18/21 05:15 Potassium Level 3.3 mmol/L (3.5-5.1) 2.9 mmol/L (3.5-5.1) White Blood Count 8.8 x10^3/uL (4.0-11.0) Red Blood Count 3.62 x10^6/uL (4.30-5.70) Hemoglobin 11.7 g/dL (13.0-17.5) Hematocrit 33.9 % (39.0-53.0) Mean Corpuscular Volume 94 fL (79-100) Mean Corpuscular Hemoglobin 32 pg (25-35) Mean Corpuscular Hemoglobin Concent 34 g/dL (31-37) Red Cell Distribution Width 12.5 % (11.5-14.5) Platelet Count 87 x10^3/uL (140-400) Neutrophils (%) (Auto) 88 % (31-73) Lymphocytes (%) (Auto) 8 % (24-48) Monocytes (%) (Auto) 4 % (0-9) Eosinophils (%) (Auto) 0 % (0-3) Basophils (%) (Auto) 0 % (0-3) Neutrophils # (Auto) 7.8 x10^3/uL (1.8-7.7) Lymphocytes # (Auto) 0.7 x10^3/uL (1.0-4.8) Monocytes # (Auto) 0.3 x10^3/uL (0.0-1.1) Eosinophils # (Auto) 0.0 x10^3/uL (0.0-0.7) Basophils # (Auto) 0.0 x10^3/uL (0.0-0.2) Sodium Level 132 mmol/L (136-145) Chloride Level 98 mmol/L (98-107) Carbon Dioxide Level 23 mmol/L (21-32) Anion Gap 11 (6-14) Blood Urea Nitrogen 8 mg/dL (8-26) Creatinine 1.0 mg/dL (0.7-1.3) Estimated GFR (Cockcroft-Gault) 84.1 Glucose Level 97 mg/dL (70-99) Calcium Level 6.6 mg/dL (8.5-10.1) Magnesium Level 1.9 mg/dL (1.8-2.4) Objective: Assessment: 1. Left thigh and groin abscess, status post incision and drainage. 2. Lactic acidosis/sepsis. 3. Leukocytosis. 4. Fever. 5. Hypotension, requiring vasopressor support. 6. Mild acute kidney injury. Plan: Plan of Care Cont Zosyn, Zyvox and Clindamycin supportive care. Follow the cultures NITZA SORIANO MD Nov 18, 2021 07:39
--- NOTE | 2021-11-18 07:45 | PDOC ---
SURGICAL PROGRESS NOTE DATE: 11/18/21 TIME: 07:44 Subjective Patient resting comfortably still describes quite a bit of pain in his left thigh Vital Signs Vital Signs Date Time Temp Pulse Resp B/P (MAP) Pulse Ox O2 Delivery O2 Flow Rate FiO2 11/18/21 06:02 102 28 102/53 (69) 98 Room Air 11/18/21 04:43 99.9 99.9 I&O Intake and Output 11/18/21 07:00 Intake Total 6013 ml Output Total 1445 ml Balance 4568 ml Intake Oral 3150 ml IV Total 1393 ml Blood Product IV Normal Saline Flush 1470 ml Output Urine Total 1445 ml # Bowel Movements 1 PATIENT HAS A CALI: Yes General: Alert, Oriented X3, Cooperative, mild distress Extremities: Other (Fair amount of edema left thigh tender to palpation erythema decrease) Labs Laboratory Tests Test 11/16/21 10:15 11/16/21 14:05 11/17/21 05:35 11/17/21 19:10 Lactic Acid Level 2.1 mmol/L (0.4-2.0) 2.5 mmol/L (0.4-2.0) White Blood Count 9.4 x10^3/uL (4.0-11.0) Red Blood Count 4.06 x10^6/uL (4.30-5.70) Hemoglobin 13.0 g/dL (13.0-17.5) Hematocrit 37.3 % (39.0-53.0) Mean Corpuscular Volume 92 fL (79-100) Mean Corpuscular Hemoglobin 32 pg (25-35) Mean Corpuscular Hemoglobin Concent 35 g/dL (31-37) Red Cell Distribution Width 12.2 % (11.5-14.5) Platelet Count 106 x10^3/uL (140-400) Neutrophils (%) (Auto) 87 % (31-73) Lymphocytes (%) (Auto) 7 % (24-48) Monocytes (%) (Auto) 7 % (0-9) Eosinophils (%) (Auto) 0 % (0-3) Basophils (%) (Auto) 0 % (0-3) Neutrophils # (Auto) 8.1 x10^3/uL (1.8-7.7) Lymphocytes # (Auto) 0.6 x10^3/uL (1.0-4.8) Monocytes # (Auto) 0.6 x10^3/uL (0.0-1.1) Eosinophils # (Auto) 0.0 x10^3/uL (0.0-0.7) Basophils # (Auto) 0.0 x10^3/uL (0.0-0.2) Sodium Level 136 mmol/L (136-145) Potassium Level 2.4 mmol/L (3.5-5.1) 3.3 mmol/L (3.5-5.1) Chloride Level 100 mmol/L (98-107) Carbon Dioxide Level 23 mmol/L (21-32) Anion Gap 13 (6-14) Blood Urea Nitrogen 8 mg/dL (8-26) Creatinine 1.0 mg/dL (0.7-1.3) Estimated GFR (Cockcroft-Gault) 84.1 Glucose Level 125 mg/dL (70-99) Calcium Level 6.2 mg/dL (8.5-10.1) Phosphorus Level 3.0 mg/dL (2.6-4.7) Magnesium Level 1.7 mg/dL (1.8-2.4) Creatine Kinase 149 U/L (39-308) Test 11/18/21 05:15 White Blood Count 8.8 x10^3/uL (4.0-11.0) Red Blood Count 3.62 x10^6/uL (4.30-5.70) Hemoglobin 11.7 g/dL (13.0-17.5) Hematocrit 33.9 % (39.0-53.0) Mean Corpuscular Volume 94 fL (79-100) Mean Corpuscular Hemoglobin 32 pg (25-35) Mean Corpuscular Hemoglobin Concent 34 g/dL (31-37) Red Cell Distribution Width 12.5 % (11.5-14.5) Platelet Count 87 x10^3/uL (140-400) Neutrophils (%) (Auto) 88 % (31-73) Lymphocytes (%) (Auto) 8 % (24-48) Monocytes (%) (Auto) 4 % (0-9) Eosinophils (%) (Auto) 0 % (0-3) Basophils (%) (Auto) 0 % (0-3) Neutrophils # (Auto) 7.8 x10^3/uL (1.8-7.7) Lymphocytes # (Auto) 0.7 x10^3/uL (1.0-4.8) Monocytes # (Auto) 0.3 x10^3/uL (0.0-1.1) Eosinophils # (Auto) 0.0 x10^3/uL (0.0-0.7) Basophils # (Auto) 0.0 x10^3/uL (0.0-0.2) Sodium Level 132 mmol/L (136-145) Potassium Level 2.9 mmol/L (3.5-5.1) Chloride Level 98 mmol/L (98-107) Carbon Dioxide Level 23 mmol/L (21-32) Anion Gap 11 (6-14) Blood Urea Nitrogen 8 mg/dL (8-26) Creatinine 1.0 mg/dL (0.7-1.3) Estimated GFR (Cockcroft-Gault) 84.1 Glucose Level 97 mg/dL (70-99) Calcium Level 6.6 mg/dL (8.5-10.1) Magnesium Level 1.9 mg/dL (1.8-2.4) Laboratory Tests Test 11/17/21 19:10 11/18/21 05:15 Potassium Level 3.3 mmol/L (3.5-5.1) 2.9 mmol/L (3.5-5.1) White Blood Count 8.8 x10^3/uL (4.0-11.0) Red Blood Count 3.62 x10^6/uL (4.30-5.70) Hemoglobin 11.7 g/dL (13.0-17.5) Hematocrit 33.9 % (39.0-53.0) Mean Corpuscular Volume 94 fL (79-100) Mean Corpuscular Hemoglobin 32 pg (25-35) Mean Corpuscular Hemoglobin Concent 34 g/dL (31-37) Red Cell Distribution Width 12.5 % (11.5-14.5) Platelet Count 87 x10^3/uL (140-400) Neutrophils (%) (Auto) 88 % (31-73) Lymphocytes (%) (Auto) 8 % (24-48) Monocytes (%) (Auto) 4 % (0-9) Eosinophils (%) (Auto) 0 % (0-3) Basophils (%) (Auto) 0 % (0-3) Neutrophils # (Auto) 7.8 x10^3/uL (1.8-7.7) Lymphocytes # (Auto) 0.7 x10^3/uL (1.0-4.8) Monocytes # (Auto) 0.3 x10^3/uL (0.0-1.1) Eosinophils # (Auto) 0.0 x10^3/uL (0.0-0.7) Basophils # (Auto) 0.0 x10^3/uL (0.0-0.2) Sodium Level 132 mmol/L (136-145) Chloride Level 98 mmol/L (98-107) Carbon Dioxide Level 23 mmol/L (21-32) Anion Gap 11 (6-14) Blood Urea Nitrogen 8 mg/dL (8-26) Creatinine 1.0 mg/dL (0.7-1.3) Estimated GFR (Cockcroft-Gault) 84.1 Glucose Level 97 mg/dL (70-99) Calcium Level 6.6 mg/dL (8.5-10.1) Magnesium Level 1.9 mg/dL (1.8-2.4) Problem List Problems Medical Problems: (1) Elevated LFTs Status: Acute (2) Fourniers gangrene Status: Acute (3) Hyperbilirubinemia Status: Acute (4) Sepsis Status: Acute (5) Septic shock Status: Acute Assessment/Plan Decreasing leukocytosis Continue antibiotics and local wound care Justicifation of Admission Dx: Justifications for Admission: Justification of Admission Dx: Yes KASIE FORRESTER MD Nov 18, 2021 07:45
[2021-11-18] MEDS: LACTOBACILLUS RHAMNOSUS GG 1 CAPSULE. PO SCH ×2 (08:49→20:58)
[2021-11-18] MEDS: POTASSIUM BICARB 20 MEQ EFFERVESCENT TABLET. PO SCH ×3 (08:50→14:06)
[2021-11-18] MEDS: oxyCODONE/APAP 5/325 1 TAB TABLET PO PRN ×2 (09:05→17:53)
--- NOTE | 2021-11-18 10:41 | PDOC ---
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 coli Severe hypokalemia 2.9 today Possible necrotic fasciitis Acute electrolyte derangement due to volume depletion Lactic acidosis FROY due to vasomotor motor nephropathy Moderate protein malnutrition Wound consult for dressing management. IV electrolyte replacement as needed General surgery consult for urgent formal I&D Continue empiric IV antibiotics Obtain intraoperative wound culture Pending blood cultures Heparin for DVT prophylaxis NPO CODE STATUS full Discussed with RN and SW Disposition inpatient management as above DPOA: Cousin A total of 32 minutes of critical care time was spent in reviewing chart, labs, and images. Discussed with RN and SW. History of Present Illness History of Present Illness 36-year-old male presents with history of a "boil on his buttock for the past 2 weeks and states that he scratched and popped it a while ago. Endorses chills and fevers and extreme pain in his left thigh. Denies any chest pain, shortness of breath, abdominal pain, diarrhea, dysuria or bloody diarrhea. No relative past medical history of diabetes or hypertension. Former smoker but quit a few years ago. 11/17/2021 No acute events overnight. Patient underwent formal I&D yesterday. Pain is well controlled. Weaned off vasopressor. VSS. Patient's chart, labs, images were reviewed and discussed with RN 11/18/2021 No acute events overnight. Vasopressors have been weaned off. White count trending down. Fever of 101.8. Will recommend more aggressive wound care of at least 2-3 times per day dry to dry and packing changes. Patient's chart, labs, images were reviewed and discussed with RN Vitals/I&O Vitals/I&O: Vital Signs Date Time Temp Pulse Resp B/P (MAP) Pulse Ox O2 Delivery O2 Flow Rate FiO2 11/18/21 10:04 32 98 Room Air 11/18/21 10:00 112 113/53 (73) 11/18/21 08:00 100.3 100.3 I & O 11/17/21 11/17/21 11/18/21 15:00 23:00 07:00 Intake Total 1100 ml 2793 ml 2120 ml Output Total 690 ml 230 ml 525 ml Balance 410 ml 2563 ml 1595 ml Physical Exam Physical Exam: GENERAL: Alert, oriented gentleman, not in distress. HEENT: Both pupils are round and reacting. No conjunctival lesion. No lesion in the mouth. NECK: Supple. No JVP, LUNGS: Clear. HEART: S1, S2, regular. ABDOMEN: Mildly distended, mildly tender diffuse more on the left side, bowel sounds present EXTREMITIES: Left lower extremity redness, swelling present more on the medial aspect of the thigh and lower leg SKIN: Unremarkable. His scrotum is unremarkable. His post-surgical dressing was not opened. 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 calm cooperative Right IJ clean General: Alert, Oriented X3, Cooperative, mild distress Heart: Regular rate, No murmurs Abdomen: Normal bowel sounds, Soft, No tenderness Extremities: Other (Fair amount of edema left thigh tender to palpation erythema decrease) Skin: Other (dressing) Labs Labs: Laboratory Tests Test 11/17/21 19:10 11/18/21 05:15 Potassium Level 3.3 mmol/L (3.5-5.1) 2.9 mmol/L (3.5-5.1) White Blood Count 8.8 x10^3/uL (4.0-11.0) Red Blood Count 3.62 x10^6/uL (4.30-5.70) Hemoglobin 11.7 g/dL (13.0-17.5) Hematocrit 33.9 % (39.0-53.0) Mean Corpuscular Volume 94 fL (79-100) Mean Corpuscular Hemoglobin 32 pg (25-35) Mean Corpuscular Hemoglobin Concent 34 g/dL (31-37) Red Cell Distribution Width 12.5 % (11.5-14.5) Platelet Count 87 x10^3/uL (140-400) Neutrophils (%) (Auto) 88 % (31-73) Lymphocytes (%) (Auto) 8 % (24-48) Monocytes (%) (Auto) 4 % (0-9) Eosinophils (%) (Auto) 0 % (0-3) Basophils (%) (Auto) 0 % (0-3) Neutrophils # (Auto) 7.8 x10^3/uL (1.8-7.7) Lymphocytes # (Auto) 0.7 x10^3/uL (1.0-4.8) Monocytes # (Auto) 0.3 x10^3/uL (0.0-1.1) Eosinophils # (Auto) 0.0 x10^3/uL (0.0-0.7) Basophils # (Auto) 0.0 x10^3/uL (0.0-0.2) Sodium Level 132 mmol/L (136-145) Chloride Level 98 mmol/L (98-107) Carbon Dioxide Level 23 mmol/L (21-32) Anion Gap 11 (6-14) Blood Urea Nitrogen 8 mg/dL (8-26) Creatinine 1.0 mg/dL (0.7-1.3) Estimated GFR (Cockcroft-Gault) 84.1 Glucose Level 97 mg/dL (70-99) Calcium Level 6.6 mg/dL (8.5-10.1) Magnesium Level 1.9 mg/dL (1.8-2.4) Assessment and Plan Assessmemt and Plan Problems Medical Problems: (1) Elevated LFTs Status: Acute (2) Fourniers gangrene Status: Acute (3) Hyperbilirubinemia Status: Acute (4) Sepsis Status: Acute (5) Septic shock Status: Acute Comment Review of Relevant I have reviewed the following items fito (where applicable) has been applied. Medications: Current Medications Medications (Trade) Dose Ordered Sig/Maria De Jesus Route PRN Reason Start Time Stop Time Status Last Admin Dose Admin Clindamycin Phosphate 50 ml @ 100 mls/hr Q8HRS IV 11/17/21 14:00 11/18/21 05:29 Potassium Chloride/Water 100 ml @ 100 mls/hr 1X ONCE IV 11/18/21 07:00 11/18/21 07:59 DC 11/18/21 06:43 Potassium Bicarbonate (Potassium Effervescent Tablet) 40 meq Q2HR PO 11/18/21 08:00 11/18/21 12:01 11/18/21 08:50 Justifications for Admission Other Justification Sepsis with left thigh abscess WINNIE CAN MD Nov 18, 2021 10:41
[2021-11-18] MEDS: MORPHINE SULFATE 2 MG/ML INJ. IV PRN (10:42)
--- NOTE | 2021-11-18 14:42 | NUR ---
Assumed pt care at this time. Pt in bed watching tv. Denies any needs at this time. Call light within reach.
--- NOTE | 2021-11-18 15:00 | NUR ---
Pt returning to bed from using restroom. Noted the packing and abd had fallen off. Pt refusing to have wound packed at this time. States it is too painful and would like to wait until tomorrow. Provided pt education on importance of repacking wound. Pt states maybe later.
--- NOTE | 2021-11-18 16:29 | NUR ---
SS following up with discharge planning. SS reviewed pt chart and discussed with pt RN. Pt is currently on room air. COVID19 negative. Pt had debridement of abscess on 11/16/2021. Surgery and ID following. Pt on IV Clindamycin, IV Zosyn, and IV Zyvox. Wound care following. Self pay. Med assist following. SS will continue to follow for discharge planning.
[2021-11-18] MEDS: ENOXAPARIN 40 MG/0.4 ML SYRINGE. SQ SCH (17:19)
--- NOTE | 2021-11-18 18:16 | NUR ---
Pt still refusing to have wound repacked. States he will tomorrow.
[2021-11-19] VITALS (14 sets, daily range): BP systolic 103–135; BP diastolic 61–88
[2021-11-19] MEDS: CLINDAMYCIN 900MG PREMIX 50 ML IV SCH ×3 (06:00→22:09)
[2021-11-19] MEDS: PIPERACILLIN/TAZOBACTAM 3.375 GM in IV NORMAL SALINE 50ML 50 ML IV SCH ×3 (06:00→19:18)
[2021-11-19 06:42] LABS: CREATININE 0.9 mg/dL (0.7-1.3); MAGNESIUM 1.7 mg/dL (1.8-2.4); POTASSIUM 3.2 mmol/L (3.5-5.1)
[2021-11-19 07:20] LABS: BASO % 0 % (0-3); EOS % 0 % (0-3); HEMATOCRIT 34.1 % (39.0-53.0); HEMOGLOBIN 11.5 g/dL (13.0-17.5); LYMPH # 0.9 x10^3/uL (1.0-4.8); LYMPH % 8 % (24-48); MEAN CORPUSCULAR HEMOGLOBIN 32 pg (25-35); MEAN CORPUSCULAR HGB CONC 34 g/dL (31-37); MEAN CORPUSCULAR VOLUME 94 fL (79-100); MONO # 0.5 x10^3/uL (0.0-1.1); MONO % 5 % (0-9); NEUT # 9.2 x10^3/uL (1.8-7.7); NEUT % 87 % (31-73); PLATELET COUNT 130 x10^3/uL (140-400); RED BLOOD COUNT 3.63 x10^6/uL (4.30-5.70); RED CELL DISTRIBUTION WIDTH 12.7 % (11.5-14.5); WHITE BLOOD COUNT 10.7 x10^3/uL (4.0-11.0)
[2021-11-19] MEDS: MORPHINE SULFATE 2 MG/ML INJ. IV PRN (07:44)
[2021-11-19] MEDS: MULTIVITAMIN with MINERAL TABLET. PO SCH (09:20)
[2021-11-19] MEDS: oxyCODONE/APAP 5/325 1 TAB TABLET PO PRN ×3 (09:20→19:44)
[2021-11-19] MEDS: IV NORMAL SALINE 1000ML BAG 1,000 ML IV SCH ×2 (09:20→18:00)
[2021-11-19] MEDS: LACTOBACILLUS RHAMNOSUS GG 1 CAPSULE. PO SCH ×2 (09:20→20:31)
--- NOTE | 2021-11-19 11:04 | PDOC ---
Infectious Disease Note Subjective: Subjective Pt complains of pain in the left thigh Fever pattern improved Vital Signs: Vital Signs Vital Signs Date Time Temp Pulse Resp B/P (MAP) Pulse Ox O2 Delivery O2 Flow Rate FiO2 11/19/21 09:50 96 Room Air 6.0 11/19/21 09:00 106 29 123/73 (90) 11/19/21 07:00 99.4 99.4 Physical Exam: PHYSICAL EXAM GENERAL: Alert, oriented gentleman, not in distress. HEENT: Both pupils are round and reacting. No conjunctival lesion. No lesion in the mouth. NECK: Supple. No JVP, LUNGS: Clear. HEART: S1, S2, regular. ABDOMEN: Mildly distended, mildly tender diffuse more on the left side, bowel sounds present EXTREMITIES: Left lower extremity redness, swelling present more on the medial aspect of the thigh and lower leg SKIN: Unremarkable. His scrotum is unremarkable. His post-surgical dressing was not opened. 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 Labs: Lab Laboratory Tests Test 11/19/21 05:30 White Blood Count 10.7 x10^3/uL (4.0-11.0) Red Blood Count 3.63 x10^6/uL (4.30-5.70) Hemoglobin 11.5 g/dL (13.0-17.5) Hematocrit 34.1 % (39.0-53.0) Mean Corpuscular Volume 94 fL (79-100) Mean Corpuscular Hemoglobin 32 pg (25-35) Mean Corpuscular Hemoglobin Concent 34 g/dL (31-37) Red Cell Distribution Width 12.7 % (11.5-14.5) Platelet Count 130 x10^3/uL (140-400) Neutrophils (%) (Auto) 87 % (31-73) Lymphocytes (%) (Auto) 8 % (24-48) Monocytes (%) (Auto) 5 % (0-9) Eosinophils (%) (Auto) 0 % (0-3) Basophils (%) (Auto) 0 % (0-3) Neutrophils # (Auto) 9.2 x10^3/uL (1.8-7.7) Lymphocytes # (Auto) 0.9 x10^3/uL (1.0-4.8) Monocytes # (Auto) 0.5 x10^3/uL (0.0-1.1) Eosinophils # (Auto) 0.0 x10^3/uL (0.0-0.7) Basophils # (Auto) 0.0 x10^3/uL (0.0-0.2) Sodium Level 133 mmol/L (136-145) Potassium Level 3.2 mmol/L (3.5-5.1) Chloride Level 99 mmol/L (98-107) Carbon Dioxide Level 24 mmol/L (21-32) Anion Gap 10 (6-14) Blood Urea Nitrogen 6 mg/dL (8-26) Creatinine 0.9 mg/dL (0.7-1.3) Estimated GFR (Cockcroft-Gault) 95.0 Glucose Level 95 mg/dL (70-99) Calcium Level 7.0 mg/dL (8.5-10.1) Magnesium Level 1.7 mg/dL (1.8-2.4) Objective: Assessment: 1. Left thigh and groin abscess, status post incision and drainage. 2. Lactic acidosis/sepsis. Improving though slowly 3. Leukocytosis. Improving 4. Fever. Improving 5. Hypotension, requiring vasopressor support. Improved 6. Mild acute kidney injury. Cultures are positive for E. coli Plan: Plan of Care Cont Zosyn, Zyvox and Clindamycin Wound care as directed supportive care. Follow the cultures Discussed with NITZA ABEBE MD Nov 19, 2021 11:04
[2021-11-19] MEDS: fentaNYL PF VIAL 100 MCG/2 ML VIAL IVP PRN (11:19)
--- NOTE | 2021-11-19 12:41 | PDOC ---
SURGICAL PROGRESS NOTE DATE: 11/19/21 TIME: 12:39 Subjective Overall patient states he is feeling better still having quite a bit of pain in his left thigh Vital Signs Vital Signs Date Time Temp Pulse Resp B/P (MAP) Pulse Ox O2 Delivery O2 Flow Rate FiO2 11/19/21 11:49 96 Room Air 6.0 11/19/21 09:00 106 29 123/73 (90) 11/19/21 07:00 99.4 99.4 I&O Intake and Output 11/19/21 07:00 Intake Total 2874 ml Output Total 2940 ml Balance -66 ml Intake Oral 1180 ml IV Total 1694 ml Output Urine Total 2940 ml PATIENT HAS A CALI: No General: Alert, Oriented X3, Cooperative, moderate distress Extremities: Other (Less edema left thigh still erythema dressings clean) Labs Laboratory Tests Test 11/17/21 19:10 11/18/21 05:15 11/19/21 05:30 Potassium Level 3.3 mmol/L (3.5-5.1) 2.9 mmol/L (3.5-5.1) 3.2 mmol/L (3.5-5.1) White Blood Count 8.8 x10^3/uL (4.0-11.0) 10.7 x10^3/uL (4.0-11.0) Red Blood Count 3.62 x10^6/uL (4.30-5.70) 3.63 x10^6/uL (4.30-5.70) Hemoglobin 11.7 g/dL (13.0-17.5) 11.5 g/dL (13.0-17.5) Hematocrit 33.9 % (39.0-53.0) 34.1 % (39.0-53.0) Mean Corpuscular Volume 94 fL (79-100) 94 fL (79-100) Mean Corpuscular Hemoglobin 32 pg (25-35) 32 pg (25-35) Mean Corpuscular Hemoglobin Concent 34 g/dL (31-37) 34 g/dL (31-37) Red Cell Distribution Width 12.5 % (11.5-14.5) 12.7 % (11.5-14.5) Platelet Count 87 x10^3/uL (140-400) 130 x10^3/uL (140-400) Neutrophils (%) (Auto) 88 % (31-73) 87 % (31-73) Lymphocytes (%) (Auto) 8 % (24-48) 8 % (24-48) Monocytes (%) (Auto) 4 % (0-9) 5 % (0-9) Eosinophils (%) (Auto) 0 % (0-3) 0 % (0-3) Basophils (%) (Auto) 0 % (0-3) 0 % (0-3) Neutrophils # (Auto) 7.8 x10^3/uL (1.8-7.7) 9.2 x10^3/uL (1.8-7.7) Lymphocytes # (Auto) 0.7 x10^3/uL (1.0-4.8) 0.9 x10^3/uL (1.0-4.8) Monocytes # (Auto) 0.3 x10^3/uL (0.0-1.1) 0.5 x10^3/uL (0.0-1.1) Eosinophils # (Auto) 0.0 x10^3/uL (0.0-0.7) 0.0 x10^3/uL (0.0-0.7) Basophils # (Auto) 0.0 x10^3/uL (0.0-0.2) 0.0 x10^3/uL (0.0-0.2) Sodium Level 132 mmol/L (136-145) 133 mmol/L (136-145) Chloride Level 98 mmol/L (98-107) 99 mmol/L (98-107) Carbon Dioxide Level 23 mmol/L (21-32) 24 mmol/L (21-32) Anion Gap 11 (6-14) 10 (6-14) Blood Urea Nitrogen 8 mg/dL (8-26) 6 mg/dL (8-26) Creatinine 1.0 mg/dL (0.7-1.3) 0.9 mg/dL (0.7-1.3) Estimated GFR (Cockcroft-Gault) 84.1 95.0 Glucose Level 97 mg/dL (70-99) 95 mg/dL (70-99) Calcium Level 6.6 mg/dL (8.5-10.1) 7.0 mg/dL (8.5-10.1) Magnesium Level 1.9 mg/dL (1.8-2.4) 1.7 mg/dL (1.8-2.4) Laboratory Tests Test 11/19/21 05:30 White Blood Count 10.7 x10^3/uL (4.0-11.0) Red Blood Count 3.63 x10^6/uL (4.30-5.70) Hemoglobin 11.5 g/dL (13.0-17.5) Hematocrit 34.1 % (39.0-53.0) Mean Corpuscular Volume 94 fL (79-100) Mean Corpuscular Hemoglobin 32 pg (25-35) Mean Corpuscular Hemoglobin Concent 34 g/dL (31-37) Red Cell Distribution Width 12.7 % (11.5-14.5) Platelet Count 130 x10^3/uL (140-400) Neutrophils (%) (Auto) 87 % (31-73) Lymphocytes (%) (Auto) 8 % (24-48) Monocytes (%) (Auto) 5 % (0-9) Eosinophils (%) (Auto) 0 % (0-3) Basophils (%) (Auto) 0 % (0-3) Neutrophils # (Auto) 9.2 x10^3/uL (1.8-7.7) Lymphocytes # (Auto) 0.9 x10^3/uL (1.0-4.8) Monocytes # (Auto) 0.5 x10^3/uL (0.0-1.1) Eosinophils # (Auto) 0.0 x10^3/uL (0.0-0.7) Basophils # (Auto) 0.0 x10^3/uL (0.0-0.2) Sodium Level 133 mmol/L (136-145) Potassium Level 3.2 mmol/L (3.5-5.1) Chloride Level 99 mmol/L (98-107) Carbon Dioxide Level 24 mmol/L (21-32) Anion Gap 10 (6-14) Blood Urea Nitrogen 6 mg/dL (8-26) Creatinine 0.9 mg/dL (0.7-1.3) Estimated GFR (Cockcroft-Gault) 95.0 Glucose Level 95 mg/dL (70-99) Calcium Level 7.0 mg/dL (8.5-10.1) Magnesium Level 1.7 mg/dL (1.8-2.4) Problem List Problems Medical Problems: (1) Elevated LFTs Status: Acute (2) Fourniers gangrene Status: Acute (3) Hyperbilirubinemia Status: Acute (4) Sepsis Status: Acute (5) Septic shock Status: Acute Assessment/Plan Is to be improving clinically lower white count less fever IV antibiotics per infectious disease local wound care Justicifation of Admission Dx: Justifications for Admission: Justification of Admission Dx: Yes KASIE FORRESTER MD Nov 19, 2021 12:40
--- NOTE | 2021-11-19 14:02 | NUR ---
Patient transferred from ICU to room 648 via bed at 1340. Patient A&OX4. VSS. L groin dressing CDI. Will continue to monitor.
--- NOTE | 2021-11-19 14:05 | PDOC ---
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 coli Severe hypokalemia 2.9 today Possible necrotic fasciitis Acute electrolyte derangement due to volume depletion Lactic acidosis FROY due to vasomotor motor nephropathy Moderate protein malnutrition Wound consult for dressing management. IV electrolyte replacement as needed General surgery consult for urgent formal I&D Continue empiric IV antibiotics Obtain intraoperative wound culture Pending blood cultures Heparin for DVT prophylaxis NPO CODE STATUS full Discussed with RN and SW Disposition inpatient management as above DPOA: Cousin History of Present Illness History of Present Illness 36-year-old male presents with history of a "boil on his buttock for the past 2 weeks and states that he scratched and popped it a while ago. Endorses chills and fevers and extreme pain in his left thigh. Denies any chest pain, shortness of breath, abdominal pain, diarrhea, dysuria or bloody diarrhea. No relative past medical history of diabetes or hypertension. Former smoker but quit a few years ago. 11/17/2021 No acute events overnight. Patient underwent formal I&D yesterday. Pain is well controlled. Weaned off vasopressor. VSS. Patient's chart, labs, images were reviewed and discussed with RN 11/18/2021 No acute events overnight. Vasopressors have been weaned off. White count trending down. Fever of 101.8. Will recommend more aggressive wound care of at least 2-3 times per day dry to dry and packing changes. Patient's chart, labs, images were reviewed and discussed with RN 11/19/2021 No acute events overnight. Afebrile vital signs stable. Saturating 99% on room air. Aggressive wound care. Continue with empiric IV antibiotics. Pain is better controlled. Patient's chart, labs, images were reviewed and discussed with RN Vitals/I&O Vitals/I&O: Vital Signs Date Time Temp Pulse Resp B/P (MAP) Pulse Ox O2 Delivery O2 Flow Rate FiO2 11/19/21 13:45 98.8 95 24 125/76 (92) 98 Room Air 98.8 11/19/21 11:49 6.0 I & O 11/18/21 11/18/21 11/19/21 15:00 23:00 07:00 Intake Total 1180 ml 1694 ml Output Total 715 ml 1650 ml 575 ml Balance 465 ml -1650 ml 1119 ml Physical Exam Physical Exam: GENERAL: Alert, oriented gentleman, not in distress. HEENT: Both pupils are round and reacting. No conjunctival lesion. No lesion in the mouth. NECK: Supple. No JVP, LUNGS: Clear. HEART: S1, S2, regular. ABDOMEN: Mildly distended, mildly tender diffuse more on the left side, bowel sounds present EXTREMITIES: Left lower extremity redness, swelling present more on the medial aspect of the thigh and lower leg SKIN: Unremarkable. His scrotum is unremarkable. His post-surgical dressing was not opened. 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 Surrounding erythema.) Labs Labs: Laboratory Tests Test 11/19/21 05:30 White Blood Count 10.7 x10^3/uL (4.0-11.0) Red Blood Count 3.63 x10^6/uL (4.30-5.70) Hemoglobin 11.5 g/dL (13.0-17.5) Hematocrit 34.1 % (39.0-53.0) Mean Corpuscular Volume 94 fL (79-100) Mean Corpuscular Hemoglobin 32 pg (25-35) Mean Corpuscular Hemoglobin Concent 34 g/dL (31-37) Red Cell Distribution Width 12.7 % (11.5-14.5) Platelet Count 130 x10^3/uL (140-400) Neutrophils (%) (Auto) 87 % (31-73) Lymphocytes (%) (Auto) 8 % (24-48) Monocytes (%) (Auto) 5 % (0-9) Eosinophils (%) (Auto) 0 % (0-3) Basophils (%) (Auto) 0 % (0-3) Neutrophils # (Auto) 9.2 x10^3/uL (1.8-7.7) Lymphocytes # (Auto) 0.9 x10^3/uL (1.0-4.8) Monocytes # (Auto) 0.5 x10^3/uL (0.0-1.1) Eosinophils # (Auto) 0.0 x10^3/uL (0.0-0.7) Basophils # (Auto) 0.0 x10^3/uL (0.0-0.2) Sodium Level 133 mmol/L (136-145) Potassium Level 3.2 mmol/L (3.5-5.1) Chloride Level 99 mmol/L (98-107) Carbon Dioxide Level 24 mmol/L (21-32) Anion Gap 10 (6-14) Blood Urea Nitrogen 6 mg/dL (8-26) Creatinine 0.9 mg/dL (0.7-1.3) Estimated GFR (Cockcroft-Gault) 95.0 Glucose Level 95 mg/dL (70-99) Calcium Level 7.0 mg/dL (8.5-10.1) Magnesium Level 1.7 mg/dL (1.8-2.4) Assessment and Plan Assessmemt and Plan Problems Medical Problems: (1) Elevated LFTs Status: Acute (2) Fourniers gangrene Status: Acute (3) Hyperbilirubinemia Status: Acute (4) Sepsis Status: Acute (5) Septic shock Status: Acute Comment Review of Relevant I have reviewed the following items fito (where applicable) has been applied. Medications: Current Medications Medications (Trade) Dose Ordered Sig/Maria De Jesus Route PRN Reason Start Time Stop Time Status Last Admin Dose Admin Multivitamins (Thera M Plus) 1 tab DAILY PO 11/19/21 09:00 11/19/21 09:20 Justifications for Admission Other Justification Sepsis with left thigh abscess WINNIE CAN MD Nov 19, 2021 14:05
--- NOTE | 2021-11-19 15:39 | NUR ---
SS following up with discharge planning. SS reviewed pt chart and discussed with pt RN. Pt is currently on room air. COVID19 negative. Surgery and ID following. Pt on IV Clindamycin, IV Zosyn, and IV Zyvox. Wound care following. Self pay. Med assist following. Pt transferred to room 648. SS will continue to follow for discharge planning.
[2021-11-19] MEDS: ENOXAPARIN 40 MG/0.4 ML SYRINGE. SQ SCH (16:21)
[2021-11-19] MEDS: POTASSIUM CHLORIDE 20 MEQ TABLET.ER. PO SCH (16:31)
[2021-11-19] MEDS ORDERED: MAGNESIUM SULFATE 2GM 50 ML IV ONE (17:00)
[2021-11-20] MEDS: PIPERACILLIN/TAZOBACTAM 3.375 GM in IV NORMAL SALINE 50ML 50 ML IV SCH ×4 (00:02→17:42)
[2021-11-20] MEDS: oxyCODONE/APAP 5/325 1 TAB TABLET PO PRN ×4 (01:36→19:54)
[2021-11-20 02:11] VITALS: BP 125/68
[2021-11-20] MEDS: IV NORMAL SALINE 1000ML BAG 1,000 ML IV SCH ×2 (04:00→13:50)
[2021-11-20] MEDS: CLINDAMYCIN 900MG PREMIX 50 ML IV SCH ×2 (06:26→13:50)
[2021-11-20 07:00] VITALS: BP 119/72
[2021-11-20] MEDS: MULTIVITAMIN with MINERAL TABLET. PO SCH (08:26)
[2021-11-20] MEDS: LACTOBACILLUS RHAMNOSUS GG 1 CAPSULE. PO SCH ×2 (08:26→21:27)
[2021-11-20] MEDS: POTASSIUM CHLORIDE 20 MEQ TABLET.ER. PO SCH (08:27)
--- NOTE | 2021-11-20 08:31 | PDOC ---
Infectious Disease Note Subjective: Subjective Pt transferred out of ICU yesterday Today states feels better, still has pain in the left lower extremity and left abdominal wall but improving slowly Fever pattern improved Vital Signs: Vital Signs Vital Signs Date Time Temp Pulse Resp B/P (MAP) Pulse Ox O2 Delivery O2 Flow Rate FiO2 11/20/21 07:20 97 Room Air 11/20/21 02:11 98.0 86 22 125/68 (87) 98.0 11/19/21 20:00 6.0 Physical Exam: PHYSICAL EXAM GENERAL: Alert, oriented gentleman, not in distress. HEENT: Both pupils are round and reacting. No conjunctival lesion. No lesion in the mouth. NECK: Supple. No JVP, LUNGS: Clear. HEART: S1, S2, regular. ABDOMEN: Mildly distended, mildly tender diffuse more on the left side, bowel sounds present EXTREMITIES: Left lower extremity redness, swelling present more on the medial aspect of the thigh and lower leg SKIN: Unremarkable. His scrotum is unremarkable. His post-surgical dressing was not opened. 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 Labs: Micro RUN DATE: 11/19/21 [facility] *LIVE* PAGE 1 RUN TIME: 1056 Specimen Inquiry PATIENT: REENA LOPEZ ACCT: [id number] LOC: 1 [facility] U: [id number] AGE/SX: 36/M ROOM: 104 RE11/16/[address]: LILA DENT MD : 1985 BED: 1 DIS: STATUS: ADM IN TLOC: SPEC #: [id number] PAOLA: 11/16/21 STATUS: RES REQ #: [id number] RECD: 11/16/[address]: LILA DENT MD SOURCE: ABSCESS ENTR: 11/16/[address] [facility] DR: KENDY SORIANO MD SPDESC: KASIE TERRELL MD ORDERED: ANAER/AEROB/GS COMMENTS: LEFT THIGH ABSCESS Procedure Result GRAM STAIN Final Final GRAM NEGATIVE RODS:MANY GRAM POSITIVE RODS:MANY GRAM POSITIVE COCCI:MANY SQUAMOUS EPI CELL:NONE SEEN PMN (WBCs):MODERATE Unless otherwise specified, Testing Performed by: [address] [address] For Inquires, the Physician may contact the Microbiology department at [phone] ANAEROBIC-AEROBIC CULTURE Preliminary Preliminary MANY [ESCHERICHIA COLI] on 11/18/21 at 0956 FEW [STREPTOCOCCUS ANGINOSUS] on 11/19/21 at 1052 MODERATE [BACTEROIDES FRAGILIS] on 11/19/21 at 1052 MANY [PARVIMONAS MICRA] on 11/19/21 at 1052 ESCHERICHIA COLI UNIDENTIFIED ORGANISM STREPTOCOCCUS ANGINOSUS BACTEROIDES FRAGILIS PARVIMONAS MICRA ANTIMICROBIAL SUSCEPTIBILITY Preliminary Comment NEG KIM 56 ESCHERICHIA COLI ANTIBIOTIC RESULT INTERPRETATION AMPICILLIN/SULBACTAM <=4/2 S AMIKACIN <=16 S AMPICILLIN <=8 S AMOXICILLIN/K CLAVULANATE <=8/4 S AZTREONAM <=4 S CEFTRIAXONE <=1 S CEFTAZIDIME <=1 S RUN DATE: 11/19/21 [facility] *LIVE* PAGE 2 RUN TIME: 1056 Specimen Inquiry SPEC: [id number] PATIENT: REENA LOPEZ [id number] (Continued) Procedure Result CONTINUED ON NEXT PAGE RUN DATE: 11/19/21 [facility] *LIVE* PAGE 3 RUN TIME: 1056 Specimen Inquiry SPEC: [id number] PATIENT: REENA LOPEZ [id number] (Co denia) Procedure Result ANTIMICROBIAL SUSCEPTIBILITY Preliminary (continued) CEFOTAXIME <=2 S CEFOXITIN <=8 S CEFAZOLIN <=2 S CIPROFLOXACIN <=0.25 S CEFEPIME <=2 S CEFUROXIME <=4 S CEFTAZIDIME/AVIBACTAM <=4 S ERTAPENEM <=0.5 S GENTAMICIN <=2 S LEVOFLOXACIN <=0.5 S MEROPENEM <=1 S PIPERACILLIN/TAZOBACTAM <=8 S TRIMETHOPRIM/SULFAMETHOXAZOLE <=0.5/9.5 S TETRACYCLINE <=4 S TOBRAMYCIN <=2 S Unless otherwise specified, Testing Performed by: [address] [address] For Inquires, the Physician may contact the Microbiology department at [phone] Objective: Assessment: 1. Left thigh and groin abscess, status post incision and drainage. Cultures positive for e coli, bacteroides,parvimonas 2. Lactic acidosis/sepsis. Improving though slowly 3. Leukocytosis. Improving 4. Fever. Improving 5. Hypotension, requiring vasopressor support. Improved 6. Mild acute kidney injury. Cultures are positive for E. coli Plan: Plan of Care Cont Alejandra Najera DC clindamycin Wound care as directed supportive care. Follow the cultures NITZA SORIANO MD Nov 20, 2021 08:31
--- NOTE | 2021-11-20 09:47 | PDOC ---
BERNARDO BLANCAS LEAD SYSTEMS ARCHITECT 11/20/21 0947: SURGICAL PROGRESS NOTE DATE: 11/20/21 TIME: 09:46 Subjective pain at wound site Vital Signs Vital Signs Date Time Temp Pulse Resp B/P (MAP) Pulse Ox O2 Delivery O2 Flow Rate FiO2 11/20/21 07:20 97 Room Air 11/20/21 07:00 97.8 97 20 119/72 (88) 97.8 11/19/21 20:00 6.0 I&O Intake and Output 11/20/21 07:00 Intake Total 1750 ml Output Total 3875 ml Balance -2125 ml Intake Oral 1750 ml Output Urine Total 3875 ml # Bowel Movements 1 General: Alert, Cooperative Skin: Other (dressing dry, mild erythema surrounding ) Labs Laboratory Tests Test 11/19/21 05:30 White Blood Count 10.7 x10^3/uL (4.0-11.0) Red Blood Count 3.63 x10^6/uL (4.30-5.70) Hemoglobin 11.5 g/dL (13.0-17.5) Hematocrit 34.1 % (39.0-53.0) Mean Corpuscular Volume 94 fL (79-100) Mean Corpuscular Hemoglobin 32 pg (25-35) Mean Corpuscular Hemoglobin Concent 34 g/dL (31-37) Red Cell Distribution Width 12.7 % (11.5-14.5) Platelet Count 130 x10^3/uL (140-400) Neutrophils (%) (Auto) 87 % (31-73) Lymphocytes (%) (Auto) 8 % (24-48) Monocytes (%) (Auto) 5 % (0-9) Eosinophils (%) (Auto) 0 % (0-3) Basophils (%) (Auto) 0 % (0-3) Neutrophils # (Auto) 9.2 x10^3/uL (1.8-7.7) Lymphocytes # (Auto) 0.9 x10^3/uL (1.0-4.8) Monocytes # (Auto) 0.5 x10^3/uL (0.0-1.1) Eosinophils # (Auto) 0.0 x10^3/uL (0.0-0.7) Basophils # (Auto) 0.0 x10^3/uL (0.0-0.2) Sodium Level 133 mmol/L (136-145) Potassium Level 3.2 mmol/L (3.5-5.1) Chloride Level 99 mmol/L (98-107) Carbon Dioxide Level 24 mmol/L (21-32) Anion Gap 10 (6-14) Blood Urea Nitrogen 6 mg/dL (8-26) Creatinine 0.9 mg/dL (0.7-1.3) Estimated GFR (Cockcroft-Gault) 95.0 Glucose Level 95 mg/dL (70-99) Calcium Level 7.0 mg/dL (8.5-10.1) Magnesium Level 1.7 mg/dL (1.8-2.4) Problem List Problems Medical Problems: (1) Elevated LFTs Status: Acute (2) Fourniers gangrene Status: Acute (3) Hyperbilirubinemia Status: Acute (4) Sepsis Status: Acute (5) Septic shock Status: Acute Assessment/Plan wound care, abx Justicifation of Admission Dx: Justifications for Admission: Justification of Admission Dx: Yes KASIE FORRESTER MD 11/20/21 1037: SURGICAL PROGRESS NOTE Assessment/Plan Agree with Quynh's assessment and plan BERNARDO BLANCAS APRN Nov 20, 2021 09:47 KASIE FORRESTER MD Nov 20, 2021 10:37
[2021-11-20 11:00] VITALS: BP 144/88
--- NOTE | 2021-11-20 13:25 | PDOC ---
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 coli Severe hypokalemia 2.9 today Possible necrotic fasciitis Acute electrolyte derangement due to volume depletion Lactic acidosis FROY due to vasomotor motor nephropathy Moderate protein malnutrition Wound consult for dressing management. IV electrolyte replacement as needed General surgery consult for urgent formal I&D Continue empiric IV antibiotics Obtain intraoperative wound culture Pending blood cultures Heparin for DVT prophylaxis NPO CODE STATUS full Discussed with RN and SW Disposition inpatient management as above DPOA: Cousin History of Present Illness History of Present Illness 36-year-old male presents with history of a "boil on his buttock for the past 2 weeks and states that he scratched and popped it a while ago. Endorses chills and fevers and extreme pain in his left thigh. Denies any chest pain, shortness of breath, abdominal pain, diarrhea, dysuria or bloody diarrhea. No relative past medical history of diabetes or hypertension. Former smoker but quit a few years ago. 11/17/2021 No acute events overnight. Patient underwent formal I&D yesterday. Pain is well controlled. Weaned off vasopressor. VSS. Patient's chart, labs, images were reviewed and discussed with RN 11/18/2021 No acute events overnight. Vasopressors have been weaned off. White count trending down. Fever of 101.8. Will recommend more aggressive wound care of at least 2-3 times per day dry to dry and packing changes. Patient's chart, labs, images were reviewed and discussed with RN 11/19/2021 No acute events overnight. Afebrile vital signs stable. Saturating 99% on room air. Aggressive wound care. Continue with empiric IV antibiotics. Pain is better controlled. Patient's chart, labs, images were reviewed and discussed with RN 11/20/2021 Patient seen and examined. Discussed with RN. Chart reviewed. Patient awake and feeling better today. Zosyn hanging. Vitals/I&O Vitals/I&O: Vital Signs Date Time Temp Pulse Resp B/P (MAP) Pulse Ox O2 Delivery O2 Flow Rate FiO2 12/23/21 12:51 Room Air 11/20/21 08:00 6.0 11/20/21 07:20 97 11/20/21 07:00 97.8 97 20 119/72 (88) 97.8 I & O 11/19/21 11/19/21 11/20/21 15:00 23:00 07:00 Intake Total 950 ml 800 ml Output Total 275 ml 1500 ml 2100 ml Balance -275 ml -550 ml -1300 ml Physical Exam Physical Exam: GENERAL: Alert, oriented gentleman, not in distress. HEENT: Both pupils are round and reacting. No conjunctival lesion. No lesion in the mouth. NECK: Supple. No JVP, LUNGS: Clear. HEART: S1, S2, regular. ABDOMEN: Mildly distended, mildly tender diffuse more on the left side, bowel sounds present EXTREMITIES: Left lower extremity redness, swelling present more on the medial aspect of the thigh and lower leg SKIN: Unremarkable. His scrotum is unremarkable. His post-surgical dressing was not opened. 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 coli Severe hypokalemia (11/17, 11/18) Possible necrotic fasciitis Acute electrolyte derangement due to volume depletion Lactic acidosis FROY due to vasomotor motor nephropathy Moderate protein malnutrition Plan Wound consult for dressing management. Wound care. Trend labs. Cardiac monitoring. IV electrolyte replacement as needed. Continue IV antibiotics- Linezolid and Zosyn. Clindamycin discontinued 11/20 per ID. Continue to follow cultures, per ID. DVT prophylaxis- Lovenox. Regular Diet, no longer NPO. Encourage PO intake. Surgery and ID following. Appreciate subspecialist recommendation. Full Code. DPOA: Cousin Comment Review of Relevant I have reviewed the following items fito (where applicable) has been applied. Medications: Current Medications Medications (Trade) Dose Ordered Sig/Maria De Jesus Route PRN Reason Start Time Stop Time Status Last Admin Dose Admin Potassium Chloride (Klor-Con) 40 meq BID PO 11/19/21 17:00 11/20/21 09:01 DC 11/20/21 08:27 Magnesium Sulfate 50 ml @ 25 mls/hr 1X ONCE IV 11/19/21 17:00 11/19/21 18:59 DC 11/19/21 16:37 Justifications for Admission Other Justification Sepsis with left thigh abscess ALANIS KHAN III DO Nov 20, 2021 13:25
[2021-11-20 14:33] VITALS: BP 128/71
--- NOTE | 2021-11-20 15:06 | NUR ---
SS following up with discharge planning. SS reviewed pt chart and discussed with pt RN. Pt is currently on room air. COVID19 negative. Surgery and ID following. Pt on IV Clindamycin, IV Zosyn, and IV Zyvox. Wound care following. Self pay. Med assist following. SS will continue to follow for discharge planning.
[2021-11-20] MEDS: ENOXAPARIN 40 MG/0.4 ML SYRINGE. SQ SCH (16:12)
[2021-11-20 19:48] VITALS: BP 147/70
[2021-11-20 23:09] VITALS: BP 118/70
[2021-11-21] MEDS: PIPERACILLIN/TAZOBACTAM 3.375 GM in IV NORMAL SALINE 50ML 50 ML IV SCH ×4 (00:05→16:34)
[2021-11-21 02:19] VITALS: BP 10/67
[2021-11-21] MEDS: oxyCODONE/APAP 5/325 1 TAB TABLET PO PRN ×3 (06:42→20:17)
[2021-11-21 07:00] VITALS: BP 128/71
[2021-11-21] MEDS: MULTIVITAMIN with MINERAL TABLET. PO SCH (09:06)
[2021-11-21] MEDS: LACTOBACILLUS RHAMNOSUS GG 1 CAPSULE. PO SCH ×2 (09:06→21:33)
[2021-11-21] MEDS: IV NORMAL SALINE 1000ML BAG 1,000 ML IV SCH ×3 (09:10→17:50)
--- NOTE | 2021-11-21 10:13 | PDOC ---
Infectious Disease Note Subjective: Subjective Pt states feels better, still has pain in the left lower extremity and left abdominal wall but improving slowly Fever pattern improved Vital Signs: Vital Signs Vital Signs Date Time Temp Pulse Resp B/P (MAP) Pulse Ox O2 Delivery O2 Flow Rate FiO2 11/21/21 09:38 96 Room Air 6.0 11/21/21 07:00 97.7 9 18 128/71 (90) 97.7 Physical Exam: PHYSICAL EXAM GENERAL: Alert, oriented gentleman, not in distress. HEENT: Both pupils are round and reacting. No conjunctival lesion. No lesion in the mouth. NECK: Supple. No JVP, LUNGS: Clear. HEART: S1, S2, regular. ABDOMEN: Mildly distended, mildly tender diffuse more on the left side, bowel sounds present EXTREMITIES: Left lower extremity redness, swelling present more on the medial aspect of the thigh and lower leg SKIN: Unremarkable. His scrotum is unremarkable. His post-surgical dressing was not opened. 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 Labs: Micro ---- -------- RUN DATE: 11/19/21 [facility] *LIVE* PAGE 1 RUN TIME: 1056 Specimen Inquiry PATIENT: REENA LOPEZ ACCT: [id number] LOC: 1 [facility] ICU U: [id number] AGE/SX: 36/M ROOM: [facility] RE11/16/[address]: LILA DENT MD : 1985 BED: 1 DIS: STATUS: ADM IN TLOC: SPEC #: [id number] PAOLA: 11/16/21 STATUS: RES REQ #: [id number] RECD: 11/16/21 [facility] DR: LILA DENT MD SOURCE: ABSCESS ENTR: 11/16/21 [facility] DR: KENDY SORIANO MD [facility]: NO KASIE SHARPE MD ORDERED: ANAER/AEROB/GS COMMENTS: LEFT THIGH ABSCESS Procedure Result GRAM STAIN Final Final GRAM NEGATIVE RODS:MANY GRAM POSITIVE RODS:MANY GRAM POSITIVE COCCI:MANY SQUAMOUS EPI CELL:NONE SEEN PMN (WBCs):MODERATE Unless otherwise specified, Testing Performed by: [address] [address] For Inquires, the Physician may contact the Microbiology department at [phone] ANAEROBIC-AEROBIC CULTURE Preliminary Preliminary MANY [ESCHERICHIA COLI] on 11/18/21 at 0956 FEW [STREPTOCOCCUS ANGINOSUS] on 11/19/21 at 1052 MODERATE [BACTEROIDES FRAGILIS] on 11/19/21 at 1052 MANY [PARVIMONAS MICRA] on 11/19/21 at 1052 ESCHERICHIA COLI UNIDENTIFIED ORGANISM STREPTOCOCCUS ANGINOSUS BACTEROIDES FRAGILIS PARVIMONAS MICRA ANTIMICROBIAL SUSCEPTIBILITY Preliminary Comment NEG KIM 56 ESCHERICHIA COLI ANTIBIOTIC RESULT INTERPRETATION AMPICILLIN/SULBACTAM <=4/2 S AMIKACIN <=16 S AMPICILLIN <=8 S AMOXICILLIN/K CLAVULANATE <=8/4 S AZTREONAM <=4 S CEFTRIAXONE <=1 S CEFTAZIDIME <=1 S RUN DATE: 11/19/21 [facility] LAB *LIVE* PAGE 2 RUN TIME: 1056 Specimen Inquiry SPEC: [id number] PATIENT: REENA LOPEZ [id number] (Continued) Procedure Result CONTINUED ON NEXT PAGE RUN DATE: 11/19/21 [facility] *LIVE* PAGE 3 RUN TIME: 1056 Specimen Inquiry SPEC: [id number] PATIENT: REENA LOPEZ [id number] (Continued) Procedure Result ANTIMICROBIAL SUSCEPTIBILITY Preliminary (continued) CEFOTAXIME <=2 S CEFOXITIN <=8 S CEFAZOLIN <=2 S CIPROFLOXACIN <=0.25 S CEFEPIME <=2 S CEFUROXIME <=4 S CEFTAZIDIME/AVIBACTAM <=4 S ERTAPENEM <=0.5 S GENTAMICIN <=2 S LEVOFLOXACIN <=0.5 S MEROPENEM <=1 S PIPERACILLIN/TAZOBACTAM <=8 S TRIMETHOPRIM/SULFAMETHOXAZOLE <=0.5/9.5 S TETRACYCLINE <=4 S TOBRAMYCIN <=2 S Unless otherwise specified, Testing Performed by: [address] [address] For Inquires, the Physician may contact the Microbiology department at [phone] Objective: Assessment: 1. Left thigh and groin abscess, Status post Incision and Drainage. Cultures positive for E coli, Bacteroides,Parvimonas 2. Lactic acidosis/sepsis. Improving though slowly 3. Leukocytosis. Improving 4. Fever. Improving 5. Hypotension, requiring vasopressor support. Improved 6. Mild acute kidney injury. Cultures are positive for E. coli Plan: Plan of Care Continue Zosyn, Zyvox DC Clindamycin Wound care as directed Continue supportive care. Follow the cultures NITZA SORIANO MD Nov 21, 2021 10:13
[2021-11-21 11:00] VITALS: BP 110/70
--- NOTE | 2021-11-21 11:31 | PDOC ---
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 coli Severe hypokalemia 2.9 today Possible necrotic fasciitis Acute electrolyte derangement due to volume depletion Lactic acidosis FROY due to vasomotor motor nephropathy Moderate protein malnutrition Wound consult for dressing management. IV electrolyte replacement as needed General surgery consult for urgent formal I&D Continue empiric IV antibiotics Obtain intraoperative wound culture Pending blood cultures Heparin for DVT prophylaxis NPO CODE STATUS full Discussed with RN and SW Disposition inpatient management as above DPOA: Cousin History of Present Illness History of Present Illness 11/21/2021 Patient seen and examined Discussed with RN Chart reviewed He currently has IV Zyvox and IV Zosyn hanging Has a right IJ triple-lumen 36-year-old male presents with history of a "boil on his buttock for the past 2 weeks and states that he scratched and popped it a while ago. Endorses chills and fevers and extreme pain in his left thigh. Denies any chest pain, shortness of breath, abdominal pain, diarrhea, dysuria or bloody diarrhea. No relative past medical history of diabetes or hypertension. Former smoker but quit a few years ago. 11/17/2021 No acute events overnight. Patient underwent formal I&D yesterday. Pain is well controlled. Weaned off vasopressor. VSS. Patient's chart, labs, images were reviewed and discussed with RN 11/18/2021 No acute events overnight. Vasopressors have been weaned off. White count trending down. Fever of 101.8. Will recommend more aggressive wound care of at least 2-3 times per day dry to dry and packing changes. Patient's chart, labs, images were reviewed and discussed with RN 11/19/2021 No acute events overnight. Afebrile vital signs stable. Saturating 99% on room air. Aggressive wound care. Continue with empiric IV antibiotics. Pain is better controlled. Patient's chart, labs, images were reviewed and discussed with RN 11/20/2021 Patient seen and examined. Discussed with RN. Chart reviewed. Patient awake and feeling better today. Zosyn hanging. Vitals/I&O Vitals/I&O: Vital Signs Date Time Temp Pulse Resp B/P (MAP) Pulse Ox O2 Delivery O2 Flow Rate FiO2 11/21/21 09:38 96 Room Air 6.0 11/21/21 07:00 97.7 9 18 128/71 (90) 97.7 I & O 11/20/21 11/20/21 11/21/21 15:00 23:00 07:00 Intake Total 740 ml 1200 ml Output Total 750 ml 750 ml 2900 ml Balance -750 ml -10 ml -1700 ml Physical Exam Physical Exam: GENERAL: Alert, oriented gentleman, not in distress. HEENT: Both pupils are round and reacting. No conjunctival lesion. No lesion in the mouth. NECK: Supple. No JVP, LUNGS: Clear. HEART: S1, S2, regular. ABDOMEN: Mildly distended, mildly tender diffuse more on the left side, bowel sounds present EXTREMITIES: Left lower extremity redness, swelling present more on the medial aspect of the thigh and lower leg SKIN: Unremarkable. His scrotum is unremarkable. His post-surgical dressing was not opened. 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 Psych calm cooperative Right IJ clean General: Alert, Cooperative Heart: Regular rate, No murmurs Lungs: Clear Abdomen: Normal bowel sounds, Soft, No tenderness Extremities: No cyanosis, Other (Cellulitis on the left thigh appears to be resolving perhaps 5 or 10%) Skin: Other (dressing dry, mild erythema surrounding ) Assessment and Plan Assessmemt and Plan Problems Medical Problems: (1) Elevated LFTs Status: Acute (2) Fourniers gangrene Status: Acute (3) Hyperbilirubinemia Status: Acute (4) Sepsis Status: Acute (5) Septic shock Status: Acute Sepsis Resolved septic shock requiring vasopressors Left groin abscess, 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 coli Severe hypokalemia (11/17, 11/18) Possible necrotic fasciitis Acute electrolyte derangement due to volume depletion Lactic acidosis FROY due to vasomotor motor nephropathy Moderate protein malnutrition Plan Wound care team following Wound care. Trend labs. Cardiac monitoring. Trend labs IV electrolyte replacement as needed. Continue IV antibiotics- Linezolid and Zosyn. Clindamycin discontinued 11/20 per ID. Continue to follow cultures, per ID. DVT prophylaxis- Lovenox. Regular Diet, no longer NPO. Encourage PO intake. Surgery and ID following. Appreciate subspecialist recommendation. Full Code. DPOA: Cousin Comment Review of Relevant I have reviewed the following items fito (where applicable) has been applied. Justifications for Admission Other Justification Sepsis with left thigh abscess ALANIS KHAN III DO Nov 21, 2021 11:30
[2021-11-21 14:55] VITALS: BP 118/71
[2021-11-21] MEDS: ENOXAPARIN 40 MG/0.4 ML SYRINGE. SQ SCH (16:34)
[2021-11-21 19:40] VITALS: BP 129/76
[2021-11-21 23:29] VITALS: BP 135/78
[2021-11-22] MEDS: PIPERACILLIN/TAZOBACTAM 3.375 GM in IV NORMAL SALINE 50ML 50 ML IV SCH ×5 (00:44→23:29)
[2021-11-22] MEDS: oxyCODONE/APAP 5/325 1 TAB TABLET PO PRN ×4 (02:05→23:29)
[2021-11-22 03:15] VITALS: BP 132/75
[2021-11-22] MEDS: IV NORMAL SALINE 1000ML BAG 1,000 ML IV SCH ×2 (06:00→17:49)
[2021-11-22 07:00] VITALS: BP 144/87
--- NOTE | 2021-11-22 08:16 | PDOC ---
Infectious Disease Note Subjective: Subjective Pt states feels better, still has pain in the left abdominal wall Fever pattern improved Vital Signs: Vital Signs Vital Signs Date Time Temp Pulse Resp B/P (MAP) Pulse Ox O2 Delivery O2 Flow Rate FiO2 11/22/21 03:15 97.7 82 18 132/75 (94) 95 Room Air 97.7 11/21/21 20:00 6.0 Physical Exam: PHYSICAL EXAM GENERAL: Alert, oriented gentleman, not in distress. HEENT: Both pupils are round and reacting. No conjunctival lesion. No lesion in the mouth. NECK: Supple. No JVP, LUNGS: Clear. HEART: S1, S2, regular. ABDOMEN: Mildly distended,Redness and induration present on the left side of the abdomen, bowel sounds present EXTREMITIES: Left lower extremity redness, swelling present more on the medial aspect of the thigh and lower leg SKIN: Unremarkable. His scrotum is unremarkable. His post-surgical dressing was not opened. 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 Labs: Micro RUN DATE: 11/19/21 [facility] *LIVE* PAGE 1 RUN TIME: 1056 Specimen Inquiry PATIENT: REENA LOPEZ ACCT: [id number] LOC: 1 [facility] U: [id number] AGE/SX: 36/M ROOM: 104 RE11/16/[address]: LILA DENT MD : 1985 BED: 1 DIS: STATUS: ADM IN TLOC: SPEC #: [id number] PAOLA: 11/16/21 STATUS: RES REQ #: [id number] RECD: 11/16/21 [facility] DR: LILA DENT MD SOURCE: ABSCESS ENTR: 11/16/[address] [facility] [address]: KENDY SORIANO MD [facility]: NO KASIE SHARPE MD ORDERED: ANAER/AEROB/GS COMMENTS: LEFT THIGH ABSCESS Procedure Result GRAM STAIN Final Final GRAM NEGATIVE RODS:MANY GRAM POSITIVE RODS:MANY GRAM POSITIVE COCCI:MANY SQUAMOUS EPI CELL:NONE SEEN PMN (WBCs):MODERATE Unless otherwise specified, Testing Performed by: [address] [address] For Inquires, the Physician may contact the Microbiology department at [phone] ANAEROBIC-AEROBIC CULTURE Preliminary Preliminary MANY [ESCHERICHIA COLI] on 11/18/21 at 0956 FEW [STREPTOCOCCUS ANGINOSUS] on 11/19/21 at 1052 MODERATE [BACTEROIDES FRAGILIS] on 11/19/21 at 1052 MANY [PARVIMONAS MICRA] on 11/19/21 at 1052 ESCHERICHIA COLI UNIDENTIFIED ORGANISM STREPTOCOCCUS ANGINOSUS BACTEROIDES FRAGILIS PARVIMONAS MICRA ANTIMICROBIAL SUSCEPTIBILITY Preliminary Comment NEG KIM 56 ESCHERICHIA COLI ANTIBIOTIC RESULT INTERPRETATION AMPICILLIN/SULBACTAM <=4/2 S AMIKACIN <=16 S AMPICILLIN <=8 S AMOXICILLIN/K CLAVULANATE <=8/4 S AZTREONAM <=4 S CEFTRIAXONE <=1 S CEFTAZIDIME <=1 S ---- -------- RUN DATE: 11/19/21 [facility] *LIVE* PAGE 2 RUN TIME: 1056 Specimen Inquiry SPEC: [id number] PATIENT: KIMBERLY LOPEZOsvaldo [id number] (Continued) Procedure Result CONTINUED ON NEXT PAGE RUN DATE: 11/19/21 [facility] *LIVE* PAGE 3 RUN TIME: 1056 Specimen Inquiry ----- ------- SPEC: [id number] PATIENT: REENA LOPEZ [id number] (Continued) Procedure Result ANTIMICROBIAL SUSCEPTIBILITY Preliminary (continued) CEFOTAXIME <=2 S CEFOXITIN <=8 S CEFAZOLIN <=2 S CIPROFLOXACIN <=0.25 S CEFEPIME <=2 S CEFUROXIME <=4 S CEFTAZIDIME/AVIBACTAM <=4 S ERTAPENEM <=0.5 S GENTAMICIN <=2 S LEVOFLOXACIN <=0.5 S MEROPENEM <=1 S PIPERACILLIN/TAZOBACTAM <=8 S TRIMETHOPRIM/SULFAMETHOXAZOLE <=0.5/9.5 S TETRACYCLINE <=4 S TOBRAMYCIN <=2 S Unless otherwise specified, Testing Performed by: [address] [address] For Inquires, the Physician may contact the Microbiology department at [phone] Objective: Assessment: 1. Left thigh and groin abscess, Status post Incision and Drainage. Cultures positive for E coli, Bacteroides,Parvimonas 2. Lactic acidosis/sepsis. Improving though slowly 3. Leukocytosis. Improving 4. Fever. Improving 5. Hypotension, requiring vasopressor support. Improved 6. Mild acute kidney injury. Cultures are positive for E. coli Plan: Plan of Care Continue DENEEN Najera Zyvox Monitor left abdominal wall closely General surgery following May need repeat imaging Wound care as directed Continue supportive care. Follow the cultures NITZA SORIANO MD Nov 22, 2021 08:16
--- NOTE | 2021-11-22 08:47 | PDOC ---
SURGICAL PROGRESS NOTE DATE: 11/22/21 TIME: 08:46 Subjective pain left side d/w ID Vital Signs Vital Signs Date Time Temp Pulse Resp B/P (MAP) Pulse Ox O2 Delivery O2 Flow Rate FiO2 11/22/21 03:15 97.7 82 18 132/75 (94) 95 Room Air 97.7 11/21/21 20:00 6.0 I&O Intake and Output 11/22/21 07:00 Intake Total 2370 ml Output Total 5275 ml Balance -2905 ml Intake Oral 1020 ml IV Total 1350 ml Output Urine Total 5275 ml # Bowel Movements 1 General: Oriented X3, Cooperative Abdomen: Soft, Other (erythema, tenderness, warm to left abdomen, flank) Problem List Problems Medical Problems: (1) Elevated LFTs Status: Acute (2) Fourniers gangrene Status: Acute (3) Hyperbilirubinemia Status: Acute (4) Sepsis Status: Acute (5) Septic shock Status: Acute Assessment/Plan wound care will check left abd, flank area with CT Justicifation of Admission Dx: Justifications for Admission: Justification of Admission Dx: Yes BENRARDO BLANCAS ROLLER PAINTER Nov 22, 2021 08:47
[2021-11-22] MEDS ORDERED: IOHEXOL 300 MG/ML 100ML VIAL. IV ONE (10:15)
[2021-11-22] MEDS ORDERED: IOHEXOL 240 MG/ML 50ML VIAL. PO ONE (10:15)
[2021-11-22 11:00] VITALS: BP 142/77
--- NOTE | 2021-11-22 11:53 | PDOC ---
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 coli Severe hypokalemia 2.9 today Possible necrotic fasciitis Acute electrolyte derangement due to volume depletion Lactic acidosis FROY due to vasomotor motor nephropathy Moderate protein malnutrition History of Present Illness History of Present Illness 11/22/2021 Patient seen and examined Discussed with RN Chart reviewed Per the cultures, infectious disease was able to stop the Zyvox we are still using Zosyn 11/21/2021 Patient seen and examined Discussed with RN Chart reviewed He currently has IV Zyvox and IV Zosyn hanging Has a right IJ triple-lumen 36-year-old male presents with history of a "boil on his buttock for the past 2 weeks and states that he scratched and popped it a while ago. Endorses chills and fevers and extreme pain in his left thigh. Denies any chest pain, shortness of breath, abdominal pain, diarrhea, dysuria or bloody diarrhea. No relative past medical history of diabetes or hypertension. Former smoker but quit a few years ago. 11/17/2021 No acute events overnight. Patient underwent formal I&D yesterday. Pain is well controlled. Weaned off vasopressor. VSS. Patient's chart, labs, images were reviewed and discussed with RN 11/18/2021 No acute events overnight. Vasopressors have been weaned off. White count trending down. Fever of 101.8. Will recommend more aggressive wound care of at least 2-3 times per day dry to dry and packing changes. Patient's chart, labs, images were reviewed and discussed with RN 11/19/2021 No acute events overnight. Afebrile vital signs stable. Saturating 99% on room air. Aggressive wound care. Continue with empiric IV antibiotics. Pain is bet ter controlled. Patient's chart, labs, images were reviewed and discussed with RN 11/20/2021 Patient seen and examined. Discussed with RN. Chart reviewed. Patient awake and feeling better today. Zosyn hanging. Vitals/I&O Vitals/I&O: Vital Signs Date Time Temp Pulse Resp B/P (MAP) Pulse Ox O2 Delivery O2 Flow Rate FiO2 11/22/21 07:00 98.8 85 30 144/87 (106) Room Air 98.8 11/22/21 03:15 95 11/21/21 20:00 6.0 I & O 11/21/21 11/21/21 11/22/21 15:00 23:00 07:00 Intake Total 1890 ml 180 ml 300 ml Output Total 1650 ml 825 ml 2800 ml Balance 240 ml -645 ml -2500 ml Physical Exam Physical Exam: GENERAL: Alert, oriented gentleman, not in distress. HEENT: Both pupils are round and reacting. No conjunctival lesion. No lesion in the mouth. NECK: Supple. No JVP, LUNGS: Clear. HEART: S1, S2, regular. ABDOMEN: Mildly distended,Redness and induration present on the left side of the abdomen, bowel sounds present EXTREMITIES: Left lower extremity redness, swelling present more on the medial aspect of the thigh and lower leg SKIN: Unremarkable. His scrotum is unremarkable. His post-surgical dressing was not opened. 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 Psych calm cooperative Right IJ clean General: Oriented X3, Cooperative Heart: Regular rate, No murmurs Lungs: Clear Abdomen: Soft, Other (erythema, tenderness, warm to left abdomen, flank) Extremities: No cyanosis, Other (Cellulitis on the left thigh appears to be resolving perhaps 5 or 10%) Skin: Other (dressing dry, mild erythema surrounding ) Assessment and Plan Assessmemt and Plan Problems Medical Problems: (1) Elevated LFTs Status: Acute (2) Fourniers gangrene Status: Acute (3) Hyperbilirubinemia Status: Acute (4) Sepsis Status: Acute (5) Septic shock Status: Acut Sepsis Septic shock requiring vasopressors Left groin abscess, 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 coli Severe hypokalemia 2.9 today Possible necrotic fasciitis Acute electrolyte derangement due to volume depletion Lactic acidosis FROY due to vasomotor motor nephropathy Moderate protein malnutrition Lactic acidosis Fevers Hypotension FROY Plan General surgery checking a CAT scan (agree) IV antibiotics Wound shelter meds Trend labs Encourage p.o. intake DVT prophylaxis Full code Appreciate subspecialist input Per infectious disease recommendations please see the following and we certainly agree and appreciate their input; Assessment: 1. Left thigh and groin abscess, Status post Incision and Drainage. Cultures positive for E coli, Bacteroides,Parvimonas 2. Lactic acidosis/sepsis. Improving though slowly 3. Leukocytosis. Improving 4. Fever. Improving 5. Hypotension, requiring vasopressor support. Improved 6. Mild acute kidney injury. Cultures are positive for E. coli Plan: Plan of Care Continue DENEEN Najera Zyvox Monitor left abdominal wall closely General surgery following May need repeat imaging Wound care as directed Continue supportive care. Follow the cultures Comment Review of Relevant I have reviewed the following items fito (where applicable) has been applied. Justifications for Admission Other Justification Sepsis with left thigh abscess ALANIS KHAN III DO Nov 22, 2021 11:53
[2021-11-22] MEDS: MULTIVITAMIN with MINERAL TABLET. PO SCH (13:01)
[2021-11-22] MEDS: LACTOBACILLUS RHAMNOSUS GG 1 CAPSULE. PO SCH ×2 (13:01→20:35)
--- NOTE | 2021-11-22 14:27 | RAD ---
CT ABDOMEN+PELVIS W dated 11/22/2021 11:58 AM Indication:Reason: left abd erythema, swelling / Spl. Instructions: 75ML OMNI 300 IV- OMNI 240 50ML P O / History: Comparison: CT 11/16/2021. Technique: Oral contrast was given. CT images were obtained using infusion of 75 mL Omnipaque 300. One or more of the following individualized dose reduction techniques were utilized for this examinat ion: 1. Automated exposure control 2. Adjustment of the mA and/or kV according to patient size 3. Use of iterative reconstruction technique Findings: There is now some atelectasis at the lung bases and probably a trace of pleural fluid. The liver and spleen are homogeneous in density and normal in configuration. Both kidneys enhance with contrast. No mass or obstruction is seen. The adrenal glands are not enlarged. The pancreas appears normal. No re troperitoneal or mesenteric adenopathy is seen. There is no apparent abdominal soft tissue mass or in tra-abdominal inflammatory process. A normal appendix is shown arising from the cecum. There is now s ome edema in the abdominal wall bilaterally along with gas density in the right anterior abdominal wa ll, possibly from previous injection. Images through the pelvis show no apparent abnormality of the distal ureters. There is now a catheter in the bladder. Gas in the bladder presumably was introduced via the catheter. Bladder otherwise manuel ears normal. No inguinal adenopathy is seen. There are mildly prominent iliac nodes similar to the pr ior exam. No new pelvic mass is seen. There is prominent soft tissue swelling in the left inguinal re gion and left lower abdominal wall. Less gas is visible. The region of the upper thighs was not inclu ded on this exam. There is no well-defined fluid collection. There is an elongated area of increased density in the subcutaneous fat that could represent hematoma. This extends over about 11 cm medial l aterally. It shows AP thickness of 2 cm. Craniocaudal extent is roughly 6 cm. IMPRESSION: There is less gas visible in left inguinal area. The upper thighs were not included on this exam. Increased subcutaneous density in the left lower abdomen may be hemorrhage. There is no localized flu id collection such as an abscess. There is increased edema bilaterally along the flanks. There is also greater atelectasis at the lung bases. Electronically signed by: Pop Donohue Jr., MD (11/22/2021 2:24 PM) [facility]
[2021-11-22 15:00] VITALS: BP 137/78
[2021-11-22] MEDS: ENOXAPARIN 40 MG/0.4 ML SYRINGE. SQ SCH (16:00)
[2021-11-22 19:20] VITALS: BP 119/70
[2021-11-22 22:45] VITALS: BP 130/78
[2021-11-23] MEDS: IV NORMAL SALINE 1000ML BAG 1,000 ML IV SCH ×3 (02:09→22:09)
[2021-11-23 02:45] VITALS: BP 116/69
[2021-11-23] MEDS: PIPERACILLIN/TAZOBACTAM 3.375 GM in IV NORMAL SALINE 50ML 50 ML IV SCH ×4 (05:04→23:32)
[2021-11-23 07:24] VITALS: BP 123/76
--- NOTE | 2021-11-23 07:51 | PDOC ---
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 11/23/21 0751: SURGICAL PROGRESS NOTE DATE: 11/23/21 TIME: 07:50 Subjective doing ok still pain left side Vital Signs Vital Signs Date Time Temp Pulse Resp B/P (MAP) Pulse Ox O2 Delivery O2 Flow Rate FiO2 11/23/21 07:24 98.5 85 18 123/76 (92) 97 Room Air 98.5 I&O Intake and Output 11/23/21 06:59 Intake Total 1430 ml Output Total 5400 ml Balance -3970 ml Intake Oral 180 ml IV Total 1250 ml Output Urine Total 5400 ml # Bowel Movements 2 General: Alert, Cooperative Abdomen: Soft, Other (erythema left abdomen/flank area ) Problem List Problems Medical Problems: (1) Elevated LFTs Status: Acute (2) Fourniers gangrene Status: Acute (3) Hyperbilirubinemia Status: Acute (4) Sepsis Status: Acute (5) Septic shock Status: Acute Assessment/Plan wound care ct reviewed, observation Justicifation of Admission Dx: Justifications for Admission: Justification of Admission Dx: Yes EMIL YOUSIF MD 11/23/21 1406: SURGICAL PROGRESS NOTE Assessment/Plan Pt seen and examined. Agree with Ms. Blancas's note Pt with induration, erythema left flank, TTP cont abx and supportive care BERNARDO BLANCAS APRN Nov 23, 2021 07:51 EMIL YOUSIF MD Nov 23, 2021 14:06
[2021-11-23] MEDS: LACTOBACILLUS RHAMNOSUS GG 1 CAPSULE. PO SCH ×2 (08:13→20:19)
[2021-11-23] MEDS: MULTIVITAMIN with MINERAL TABLET. PO SCH (08:13)
[2021-11-23] MEDS: oxyCODONE/APAP 5/325 1 TAB TABLET PO PRN ×2 (08:13→19:38)
--- NOTE | 2021-11-23 08:26 | PDOC ---
Infectious Disease Note Subjective: Subjective Pt states feels better, still has pain in the left abdominal wall Fever pattern improved Vital Signs: Vital Signs Vital Signs Date Time Temp Pulse Resp B/P (MAP) Pulse Ox O2 Delivery O2 Flow Rate FiO2 11/23/21 08:13 97 Room Air 11/23/21 07:24 98.5 85 18 123/76 (92) 98.5 Physical Exam: PHYSICAL EXAM GENERAL: Alert, oriented gentleman, not in distress. HEENT: Both pupils are round and reacting. No conjunctival lesion. No lesion in the mouth. NECK: Supple. No JVP, LUNGS: Clear. HEART: S1, S2, regular. ABDOMEN: Mildly distended,Redness and induration present on the left side of the abdomen, bowel sounds present EXTREMITIES: Left lower extremity redness, swelling present more on the medial aspect of the thigh and lower leg SKIN: Unremarkable. His scrotum is unremarkable. His post-surgical dressing was not opened. 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 Labs: Micro RUN DATE: 11/19/21 [facility] LAB *LIVE* PAGE 1 RUN TIME: 1056 Specimen Inquiry PATIENT: REENA LOPEZ ACCT: [id number] LOC: 1 [facility] U: [id number] AGE/SX: 36/M ROOM: 104 RE11/16/[address]: LILA DENT MD : 1985 BED: 1 DIS: STATUS: ADM IN TLOC: SPEC #: [id number] PAOLA: 11/16/21 STATUS: RES REQ #: [id number] RECD: 11/16/[address]: LILA DENT MD SOURCE: ABSCESS ENTR: 11/16/[address] [facility] [address]: KENDY SORIANO MD [facility]: NO KASIE SHARPE MD ORDERED: ANAER/AEROB/GS COMMENTS: LEFT THIGH ABSCESS Procedure Result GRAM STAIN Final Final GRAM NEGATIVE RODS:MANY GRAM POSITIVE RODS:MANY GRAM POSITIVE COCCI:MANY SQUAMOUS EPI CELL:NONE SEEN PMN (WBCs):MODERATE Unless otherwise specified, Testing Performed by: [address] [address] For Inquires, the Physician may contact the Microbiology department at [phone] ANAEROBIC-AEROBIC CULTURE Preliminary Preliminary MANY [ESCHERICHIA COLI] on 11/18/21 at 0956 FEW [STREPTOCOCCUS ANGINOSUS] on 11/19/21 at 1052 MODERATE [BACTEROIDES FRAGILIS] on 11/19/21 at 1052 MANY [PARVIMONAS MICRA] on 11/19/21 at 1052 ESCHERICHIA COLI UNIDENTIFIED ORGANISM STREPTOCOCCUS ANGINOSUS BACTEROIDES FRAGILIS PARVIMONAS MICRA ANTIMICROBIAL SUSCEPTIBILITY Preliminary Comment NEG KIM 56 ESCHERICHIA COLI ANTIBIOTIC RESULT INTERPRETATION AMPICILLIN/SULBACTAM <=4/2 S AMIKACIN <=16 S AMPICILLIN <=8 S AMOXICILLIN/K CLAVULANATE <=8/4 S AZTREONAM <=4 S CEFTRIAXONE <=1 S CEFTAZIDIME <=1 S ------- ----- RUN DATE: 11/19/21 [facility] *LIVE* PAGE 2 RUN TIME: 1056 Specimen Inquiry SPEC: [id number] PATIENT: JOHNASHLEIGHBILLY [id number] (Continued) Procedure Result CONTINUED ON NEXT PAGE RUN DATE: 11/19/21 [facility] [employer] [facility] LAB *LIVE* PAGE 3 RUN TIME: 1056 Specimen Inquiry -------- ---- SPEC: [id number] PATIENT: REENA LOPEZ [id number] (Continued) Procedure Result ANTIMICROBIAL SUSCEPTIBILITY Preliminary (continued) CEFOTAXIME <=2 S CEFOXITIN <=8 S CEFAZOLIN <=2 S CIPROFLOXACIN <=0.25 S CEFEPIME <=2 S CEFUROXIME <=4 S CEFTAZIDIME/AVIBACTAM <=4 S ERTAPENEM <=0.5 S GENTAMICIN <=2 S LEVOFLOXACIN <=0.5 S MEROPENEM <=1 S PIPERACILLIN/TAZOBACTAM <=8 S TRIMETHOPRIM/SULFAMETHOXAZOLE <=0.5/9.5 S TETRACYCLINE <=4 S TOBRAMYCIN <=2 S Unless otherwise specified, Testing Performed by: [address] [address] For Inquires, the Physician may contact the Microbiology department at [phone] Objective: Assessment: 1. Left thigh and groin abscess, Status post Incision and Drainage. Cultures positive for E coli, Bacteroides,Parvimonas 2. Lactic acidosis/sepsis. Improved 3. Leukocytosis. Improved 4. Fever. Improved 5. Hypotension, requiring vasopressor support. Improved 6. Mild acute kidney injury. 7. Thrombocytopenia Plan: Plan of Care Continue Zosyn, Monitor left abdominal wall closely CT Abdo reviewed Gen surgery following Wound care as directed Continue supportive care. Follow the cultures NITZA SORIANO MD Nov 23, 2021 08:26
[2021-11-23 10:18] VITALS: BP 131/78
--- NOTE | 2021-11-23 13:14 | PDOC ---
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 coli Severe hypokalemia 2.9 (11/17-11/18) Possible necrotic fasciitis Acute electrolyte derangement due to volume depletion Lactic acidosis FROY due to vasomotor motor nephropathy Moderate protein malnutrition Lactic acidosis Fevers Hypotension FROY History of Present Illness History of Present Illness 11/23/2021 Patient seen and examined. Discussed with RN. Chart reviewed. Patient had CT abdomen and pelvis w/ oral and IV contrast completed 11/22. Left abdominal erythema has slightly decreased in comparison to yesterday. Per the cultures, Infectious Disease is still continuing Zosyn. 11/22/2021 Patient seen and examined Discussed with RN Chart reviewed Per the cultures, infectious disease was able to stop the Zyvox we are still using Zosyn 11/21/2021 Patient seen and examined Discussed with RN Chart reviewed He currently has IV Zyvox and IV Zosyn hanging Has a right IJ triple-lumen 36-year-old male presents with history of a "boil on his buttock for the past 2 weeks and states that he scratched and popped it a while ago. Endorses chills and fevers and extreme pain in his left thigh. Denies any chest pain, shortness of breath, abdominal pain, diarrhea, dysuria or bloody diarrhea. No relative past medical history of diabetes or hypertension. Former smoker but quit a few years ago. 11/17/2021 No acute events overnight. Patient underwent formal I&D yesterday. Pain is well controlled. Weaned off vasopressor. VSS. Patient's chart, labs, images were reviewed and discussed with RN 11/18/2021 No acute events overnight. Vasopressors have been weaned off. White count trending down. Fever of 101.8. Will recommend more aggressive wound care of at least 2-3 times per day dry to dry and packing changes. Patient's chart, labs, images were reviewed and discussed with RN 11/19/2021 No acute events overnight. Afebrile vital signs stable. Saturating 99% on room air. Aggressive wound care. Continue with empiric IV antibiotics. Pain is better controlled. Patient's chart, labs, images were reviewed and discussed with RN 11/20/2021 Patient seen and examined. Discussed with RN. Chart reviewed. Patient awake and feeling better today. Zosyn hanging. Vitals/I&O Vitals/I&O: Vital Signs Date Time Temp Pulse Resp B/P (MAP) Pulse Ox O2 Delivery O2 Flow Rate FiO2 11/23/21 10:18 98.3 81 18 131/78 (95) 97 Room Air 98.3 11/23/21 08:43 6.0 I & O 11/22/21 11/22/21 11/23/21 15:00 23:00 07:00 Intake Total 230 ml 100 ml 1100 ml Output Total 1900 ml 3500 ml Balance -1670 ml 100 ml -2400 ml Physical Exam Physical Exam: GENERAL: Alert, oriented gentleman, not in distress. HEENT: Both pupils are round and reacting. No conjunctival lesion. No lesion in the mouth. NECK: Supple. No JVP, LUNGS: Clear. HEART: S1, S2, regular. ABDOMEN: Mildly distended,Redness and induration present on the left side of the abdomen, bowel sounds present EXTREMITIES: Left lower extremity redness, swelling present more on the medial aspect of the thigh and lower leg SKIN: Unremarkable. His scrotum is unremarkable. His post-surgical dressing was not opened. 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 Psych calm cooperative Right IJ clean General: Alert, Cooperative Heart: Regular rate, No murmurs Lungs: Clear Abdomen: Soft, Other (erythema left abdomen/flank area ) Extremities: No cyanosis, Other (Cellulitis on the left thigh appears to be resolving perhaps 5 or 10%) Skin: Other (dressing dry, mild erythema surrounding ) Assessment and Plan Assessmemt and Plan Problems Medical Problems: (1) Elevated LFTs Status: Acute (2) Fourniers gangrene Status: Acute (3) Hyperbilirubinemia Status: Acute (4) Sepsis Status: Acute (5) Septic shock Status: Acute Assessment Sepsis Septic shock requiring vasopressors Left groin abscess, 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 coli Severe hypokalemia 2.9 (11/17-11/18) Possible necrotic fasciitis Acute electrolyte derangement due to volume depletion Lactic acidosis FROY due to vasomotor motor nephropathy Moderate protein malnutrition Lactic acidosis Fevers Hypotension FROY Plan Continue IV antibiotics per ID (discussed the case with Dr. Duffy) Wound halfway meds Trend labs Encourage p.o. intake DVT prophylaxis Full code General surgery also following Per infectious disease recommendations please see the following and we certainly agree and appreciate their input; 11/23 Assessment: 1. Left thigh and groin abscess, Status post Incision and Drainage. Cultures positive for E coli, Bacteroides,Parvimonas 2. Lactic acidosis/sepsis. Improved 3. Leukocytosis. Improved 4. Fever. Improved 5. Hypotension, requiring vasopressor support. Improved 6. Mild acute kidney injury. 7. Thrombocytopenia 11/23 Plan of Care Continue Zosyn, Monitor left abdominal wall closely CT Abdo reviewed Gen surgery following Wound care as directed Continue supportive care. Follow the cultures Comment Review of Relevant I have reviewed the following items fito (where applicable) has been applied. Justifications for Admission Other Justification Sepsis with left thigh abscess ALANIS KHAN III DO Nov 23, 2021 13:14
[2021-11-23 14:43] VITALS: BP 122/74
[2021-11-23] MEDS: ENOXAPARIN 40 MG/0.4 ML SYRINGE. SQ SCH (17:02)
[2021-11-23 19:20] VITALS: BP 124/75
[2021-11-23 22:40] VITALS: BP 125/80
[2021-11-24] VITALS (7 sets, daily range): BP systolic 124–158; BP diastolic 69–83
[2021-11-24] MEDS: PIPERACILLIN/TAZOBACTAM 3.375 GM in IV NORMAL SALINE 50ML 50 ML IV SCH ×3 (04:56→17:22)
[2021-11-24] MEDS: oxyCODONE/APAP 5/325 1 TAB TABLET PO PRN ×2 (04:59→17:32)
[2021-11-24] MEDS: MULTIVITAMIN with MINERAL TABLET. PO SCH (08:11)
[2021-11-24] MEDS: LACTOBACILLUS RHAMNOSUS GG 1 CAPSULE. PO SCH ×2 (08:11→21:06)
[2021-11-24] MEDS: IV NORMAL SALINE 1000ML BAG 1,000 ML IV SCH ×2 (08:44→17:22)
--- NOTE | 2021-11-24 08:54 | PDOC ---
SURGICAL PROGRESS NOTE DATE: 11/24/21 TIME: 08:53 Subjective resting some pain, a little better Vital Signs Vital Signs Date Time Temp Pulse Resp B/P (MAP) Pulse Ox O2 Delivery O2 Flow Rate FiO2 11/24/21 07:00 98.4 68 18 124/75 (91) 98 Room Air 98.4 11/23/21 19:38 6.0 I&O Intake and Output 11/24/21 07:00 Intake Total 1980 ml Output Total 5975 ml Balance -3995 ml Intake Oral 780 ml IV Total 1200 ml Output Urine Total 5975 ml # Bowel Movements 1 General: Alert, Cooperative Abdomen: Soft, Other (some left side erythema, appears slightly improved ) Problem List Problems Medical Problems: (1) Elevated LFTs Status: Acute (2) Fourniers gangrene Status: Acute (3) Hyperbilirubinemia Status: Acute (4) Sepsis Status: Acute (5) Septic shock Status: Acute Assessment/Plan wound care, abx, observation Justicifation of Admission Dx: Justifications for Admission: Justification of Admission Dx: Yes BERNARDO BLANCAS NEWS AGENT Nov 24, 2021 08:54
--- NOTE | 2021-11-24 09:10 | PDOC ---
Infectious Disease Note Subjective: Subjective Pt states feels better, still has pain in the left groin and left abdominal wall no fevers Vital Signs: Vital Signs Vital Signs Date Time Temp Pulse Resp B/P (MAP) Pulse Ox O2 Delivery O2 Flow Rate FiO2 11/24/21 07:00 98.4 68 18 124/75 (91) 98 Room Air 98.4 11/23/21 19:38 6.0 Physical Exam: PHYSICAL EXAM GENERAL: Alert, oriented gentleman, not in distress. HEENT: Both pupils are round and reacting. No conjunctival lesion. No lesion in the mouth. NECK: Supple. No JVP, LUNGS: Clear. HEART: S1, S2, regular. ABDOMEN: Mildly distended,Redness and induration present on the left side of the abdomen, bowel sounds present induration on the left groin and lower abdomen. Wound is clean. Deep. EXTREMITIES: Left lower extremity redness, swelling present more on the medial aspect of the thigh and lower leg improved SKIN: Unremarkable. His scrotum is unremarkable. His post-surgical dressing was not opened. 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 Labs: Micro RUN DATE: 11/19/21 [facility] LAB *LIVE* PAGE 1 RUN TIME: 1056 Specimen Inquiry PATIENT: REENA LOPEZ ACCT: [id number] LOC: 1 [facility] U: [id number] AGE/SX: 36/M ROOM: 104 RE11/16/[address]: LILA DENT MD : 1985 BED: 1 DIS: STATUS: ADM IN TLOC: SPEC #: [id number] PAOLA: 11/16/21 STATUS: RES REQ #: [id number] RECD: 11/16/[address]: LILA DENT MD SOURCE: ABSCESS ENTR: 11/16/[address]: KENDY SORIANO MD SPDC: NO KASIE SHARPE MD ORDERED: ANAER/AEROB/GS COMMENTS: LEFT THIGH ABSCESS Procedure Result --- --------- GRAM STAIN Final Final GRAM NEGATIVE RODS:MANY GRAM POSITIVE RODS:MANY GRAM POSITIVE COCCI:MANY SQUAMOUS EPI CELL:NONE SEEN PMN (WBCs):MODERATE Unless otherwise specified, Testing Performed by: [address] [address] For Inquires, the Physician may contact the Microbiology department at [phone] ANAEROBIC-AEROBIC CULTURE Preliminary Preliminary MANY [ESCHERICHIA COLI] on 11/18/21 at 0956 FEW [STREPTOCOCCUS ANGINOSUS] on 11/19/21 at 1052 MODERATE [BACTEROIDES FRAGILIS] on 11/19/21 at 1052 MANY [PARVIMONAS MICRA] on 11/19/21 at 1052 ESCHERICHIA COLI UNIDENTIFIED ORGANISM STREPTOCOCCUS ANGINOSUS BACTEROIDES FRAGILIS PARVIMONAS MICRA ANTIMICROBIAL SUSCEPTIBILITY Preliminary Comment NEG KIM 56 ESCHERICHIA COLI ANTIBIOTIC RESULT INTERPRETATION AMPICILLIN/SULBACTAM <=4/2 S AMIKACIN <=16 S AMPICILLIN <=8 S AMOXICILLIN/K CLAVULANATE <=8/4 S AZTREONAM <=4 S CEFTRIAXONE <=1 S CEFTAZIDIME <=1 S RUN DATE: 11/19/21 [facility] *LIVE* PAGE 2 RUN TIME: 1056 Specimen Inquiry SPEC: [id number] PATIENT: REENA LOPEZ [id number] (Continued) Procedure Result CONTINUED ON NEXT PAGE RUN DATE: 11/19/21 [facility] *LIVE* PAGE 3 RUN TIME: 1056 Specimen Inquiry SPEC: [id number] PATIENT: REENA LOPEZ [id number] (Continued) Procedure Result ANTIMICROBIAL SUSCEPTIBILITY Preliminary (continued) CEFOTAXIME <=2 S CEFOXITIN <=8 S CEFAZOLIN <=2 S CIPROFLOXACIN <=0.25 S CEFEPIME <=2 S CEFUROXIME <=4 S CEFTAZIDIME/AVIBACTAM <=4 S ERTAPENEM <=0.5 S GENTAMICIN <=2 S LEVOFLOXACIN <=0.5 S MEROPENEM <=1 S PIPERACILLIN/TAZOBACTAM <=8 S TRIMETHOPRIM/SULFAMETHOXAZOLE <=0.5/9.5 S TETRACYCLINE <=4 S TOBRAMYCIN <=2 S Unless otherwise specified, Testing Performed by: [address] [address] For Inquires, the Physician may contact the Microbiology department at [phone] Objective: Assessment: 1. Left thigh and groin abscess, Status post Incision and Drainage. Cultures positive for E coli, Bacteroides,Parvimonas 2. Lactic acidosis/sepsis. Improved 3. Leukocytosis. Improved 4. Fever. Improved 5. Hypotension, requiring vasopressor support. Improved 6. Mild acute kidney injury. 7. Thrombocytopenia Plan: Plan of Care Continue Zosyn, Monitor left abdominal wall closely CT Abdo reviewed Gen surgery following Wound care as directed Continue supportive care. Follow the cultures NITZA JACOBSON MD Nov 24, 2021 09:10
--- NOTE | 2021-11-24 09:46 | NUR ---
Wound/Ostomy Care Wound Type/Assessment: Patient seen per wound care follow up. See wound assessment. Patient premedicated. Patient had I&D of abscess to left groin/ischium area on 11/16/20. There was no packing in the wound at this time. Wound cleansed, assessed, measured, and pictured. Wound is better assessed if the patient lays on his back side and relaxes the left leg against the bed rail. Treatment Recommendations/Plan: Repacked with Aquacel Ag packing at this time as there is no Iodoform packing available, then covered with ABD pad, and brief underwear applied. Change daily. Will continue with 1/2 inch Iodoform gauze packing for next dressing change. Education provided: Patient educated regarding POC and PU prevention. Offloading surface/device: Patient is independent. Recommended Referrals/Tests: Patient to follow up with surgeon following discharge as he is not able to come to the wound clinic due to insurance. Patient may benefit from wound vac while in hospital but he is also healing well at this time on his own. Discharge Recommendations for dressings: Continue with current treatment plan. No other wounds noted. Wound care will follow up on 12/03/20. Bed lowered and call light in reach.
--- NOTE | 2021-11-24 13:45 | PDOC ---
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 coli Severe hypokalemia 2.9 (11/17-11/18) Possible necrotic fasciitis Acute electrolyte derangement due to volume depletion Lactic acidosis FROY due to vasomotor motor nephropathy Moderate protein malnutrition Lactic acidosis Fevers Hypotension FROY History of Present Illness History of Present Illness 11/24/2021 No acute events overnight. Patient seen and examined bedside while getting dressing changed by wound care. Wound has good borders without any purulent or malodorous drainage. Erythema is resolving on the abdominal wall. Patient is in good spirits and pain is improved. Patient's chart, labs, images were reviewed and discussed with RN 11/23/2021 Patient seen and examined. Discussed with RN. Chart reviewed. Patient had CT abdomen and pelvis w/ oral and IV contrast completed 11/22. Left abdominal erythema has slightly decreased in comparison to yesterday. Per the cultures, Infectious Disease is still continuing Zosyn. 11/22/2021 Patient seen and examined Discussed with RN Chart reviewed Per the cultures, infectious disease was able to stop the Zyvox we are still using Zosyn 11/21/2021 Patient seen and examined Discussed with RN Chart reviewed He currently has IV Zyvox and IV Zosyn hanging Has a right IJ triple-lumen 36-year-old male presents with history of a "boil on his buttock for the past 2 weeks and states that he scratched and popped it a while ago. Endorses chills and fevers and extreme pain in his left thigh. Denies any chest pain, shortness of breath, abdominal pain, diarrhea, dysuria or bloody diarrhea. No relative past medical history of diabetes or hypertension. Former smoker but quit a few years ago. 11/17/2021 No acute events overnight. Patient underwent formal I&D yesterday. Pain is well controlled. Weaned off vasopressor. VSS. Patient's chart, labs, images were reviewed and discussed with RN 11/18/2021 No acute events overnight. Vasopressors have been weaned off. White count trending down. Fever of 101.8. Will recommend more aggressive wound care of at least 2-3 times per day dry to dry and packing changes. Patient's chart, labs, images were reviewed and discussed with RN 11/19/2021 No acute events overnight. Afebrile vital signs stable. Saturating 99% on room air. Aggressive wound care. Continue with empiric IV antibiotics. Pain is better controlled. Patient's chart, labs, images were reviewed and discussed with RN 11/20/2021 Patient seen and examined. Discussed with RN. Chart reviewed. Patient awake and feeling better today. Zosyn hanging. Vitals/I&O Vitals/I&O: Vital Signs Date Time Temp Pulse Resp B/P (MAP) Pulse Ox O2 Delivery O2 Flow Rate FiO2 11/24/21 10:02 97.9 80 18 136/69 (91) 97 Room Air 97.9 11/23/21 19:38 6.0 I & O 11/23/21 11/23/21 11/24/21 15:00 23:00 07:00 Intake Total 50 ml 1230 ml 700 ml Output Total 1550 ml 1375 ml 3050 ml Balance -1500 ml -145 ml -2350 ml Physical Exam Physical Exam: GENERAL: Alert, oriented gentleman, not in distress. HEENT: Both pupils are round and reacting. No conjunctival lesion. No lesion in the mouth. NECK: Supple. No JVP, LUNGS: Clear. HEART: S1, S2, regular. ABDOMEN: Mildly distended,Redness and induration present on the left side of the abdomen, bowel sounds present induration on the left groin and lower abdomen. Wound is clean. Deep. EXTREMITIES: Left lower extremity redness, swelling present more on the medial aspect of the thigh and lower leg improved SKIN: Unremarkable. His scrotum is unremarkable. His post-surgical dressing was not opened. 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 Psych calm cooperative Right IJ clean General: Alert, Cooperative Heart: Regular rate, No murmurs Lungs: Clear Abdomen: Soft, Other (some left side erythema, appears slightly improved ) Extremities: No cyanosis, Other (Cellulitis on the left thigh appears to be resolving perhaps 5 or 10%) Skin: Other (dressing dry, mild erythema surrounding ) Assessment and Plan Assessmemt and Plan Problems Medical Problems: (1) Elevated LFTs Status: Acute (2) Fourniers gangrene Status: Acute (3) Hyperbilirubinemia Status: Acute (4) Sepsis Status: Acute (5) Septic shock Status: Acute Comment Review of Relevant I have reviewed the following items fito (where applicable) has been applied. Justifications for Admission Other Justification Sepsis with left thigh abscess WINNIE CAN MD Nov 24, 2021 13:44
--- NOTE | 2021-11-24 14:53 | NUR ---
SS following up with discharge planning. SS reviewed pt chart and discussed with pt RN. Pt is currently on room air. COVID19 negative. Pt on IV Zosyn. Wound care following. Self pay. Med Assist following. Discharge plan is currently to home when medically ready for discharge. SS will continue to follow for discharge planning.
[2021-11-24 16:40] LABS: BASO % 0 % (0-3); EOS % 0 % (0-3); HEMATOCRIT 32.5 % (39.0-53.0); HEMOGLOBIN 10.9 g/dL (13.0-17.5); LYMPH # 1.2 x10^3/uL (1.0-4.8); LYMPH % 11 % (24-48); MEAN CORPUSCULAR HEMOGLOBIN 32 pg (25-35); MEAN CORPUSCULAR HGB CONC 34 g/dL (31-37); MEAN CORPUSCULAR VOLUME 94 fL (79-100); MONO # 0.7 x10^3/uL (0.0-1.1); MONO % 7 % (0-9); NEUT # 9.1 x10^3/uL (1.8-7.7); NEUT % 82 % (31-73); PLATELET COUNT 301 x10^3/uL (140-400); RED BLOOD COUNT 3.46 x10^6/uL (4.30-5.70); RED CELL DISTRIBUTION WIDTH 11.9 % (11.5-14.5); WHITE BLOOD COUNT 11.1 x10^3/uL (4.0-11.0)
[2021-11-24 16:57] LABS: CALCIUM 7.5 mg/dL (8.5-10.1); CREATININE 0.7 mg/dL (0.7-1.3); GFR 126.9; POTASSIUM 4.1 mmol/L (3.5-5.1)
[2021-11-24] MEDS: ENOXAPARIN 40 MG/0.4 ML SYRINGE. SQ SCH (17:21)
[2021-11-24] MEDS: ACETAMINOPHEN 325 MG TABLET. PO PRN (21:06)
[2021-11-25] MEDS: PIPERACILLIN/TAZOBACTAM 3.375 GM in IV NORMAL SALINE 50ML 50 ML IV SCH ×4 (00:36→17:49)
[2021-11-25 02:50] VITALS: BP 123/78
[2021-11-25] MEDS: IV NORMAL SALINE 1000ML BAG 1,000 ML IV SCH ×2 (04:00→12:58)
[2021-11-25 07:00] VITALS: BP 130/84
--- NOTE | 2021-11-25 09:00 | PDOC ---
Infectious Disease Note Subjective: Subjective Patient feels the same Vital Signs: Vital Signs Vital Signs Date Time Temp Pulse Resp B/P (MAP) Pulse Ox O2 Delivery O2 Flow Rate FiO2 11/25/21 07:00 98.6 78 20 130/84 (99) 96 Room Air 98.6 11/24/21 17:32 6.0 Physical Exam: PHYSICAL EXAM GENERAL: Alert, oriented gentleman, not in distress. HEENT: Both pupils are round and reacting. No conjunctival lesion. No lesion in the mouth. NECK: Supple. No JVP, LUNGS: Clear. HEART: S1, S2, regular. ABDOMEN: Mildly distended,Redness and induration present on the left side of the abdomen, bowel sounds present induration on the left groin and lower abdomen. Wound is clean. Deep. EXTREMITIES: Left lower extremity redness, swelling present more on the medial aspect of the thigh and lower leg improved SKIN: Unremarkable. His scrotum is unremarkable. His post-surgical dressing was not opened. 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 Labs: Lab Laboratory Tests Test 11/24/21 16:25 White Blood Count 11.1 x10^3/uL (4.0-11.0) Red Blood Count 3.46 x10^6/uL (4.30-5.70) Hemoglobin 10.9 g/dL (13.0-17.5) Hematocrit 32.5 % (39.0-53.0) Mean Corpuscular Volume 94 fL (79-100) Mean Corpuscular Hemoglobin 32 pg (25-35) Mean Corpuscular Hemoglobin Concent 34 g/dL (31-37) Red Cell Distribution Width 11.9 % (11.5-14.5) Platelet Count 301 x10^3/uL (140-400) Neutrophils (%) (Auto) 82 % (31-73) Lymphocytes (%) (Auto) 11 % (24-48) Monocytes (%) (Auto) 7 % (0-9) Eosinophils (%) (Auto) 0 % (0-3) Basophils (%) (Auto) 0 % (0-3) Neutrophils # (Auto) 9.1 x10^3/uL (1.8-7.7) Lymphocytes # (Auto) 1.2 x10^3/uL (1.0-4.8) Monocytes # (Auto) 0.7 x10^3/uL (0.0-1.1) Eosinophils # (Auto) 0.0 x10^3/uL (0.0-0.7) Basophils # (Auto) 0.0 x10^3/uL (0.0-0.2) Sodium Level 141 mmol/L (136-145) Potassium Level 4.1 mmol/L (3.5-5.1) Chloride Level 107 mmol/L (98-107) Carbon Dioxide Level 25 mmol/L (21-32) Anion Gap 9 (6-14) Blood Urea Nitrogen 12 mg/dL (8-26) Creatinine 0.7 mg/dL (0.7-1.3) Estimated GFR (Cockcroft-Gault) 126.9 Glucose Level 107 mg/dL (70-99) Calcium Level 7.5 mg/dL (8.5-10.1) Magnesium Level 2.0 mg/dL (1.8-2.4) Micro RUN DATE: 11/19/21 [facility] LAB *LIVE* PAGE 1 RUN TIME: 1056 Specimen Inquiry ----- ------- PATIENT: REENA LOPEZ ACCT: [id number] LOC: 1 [place] ICU U: [id number] AGE/SX: 36/M ROOM: [facility] RE11/16/[address]: LILA DENT MD : 1985 BED: 1 DIS: STATUS: ADM IN TLOC: SPEC #: [id number] PAOLA: 11/16/21 STATUS: RES REQ #: [id number] RECD: 11/16/[address] [facility] [address]: LILA DENT MD SOURCE: ABSCESS ENTR: 11/16/21 [facility] DR: KENDY SORIANO MD [facility]: NO KASIE SHARPE MD ORDERED: ANAER/AEROB/GS COMMENTS: LEFT THIGH ABSCESS ---- -------- Procedure Result GRAM STAIN Final Final GRAM NEGATIVE RODS:MANY GRAM POSITIVE RODS:MANY GRAM POSITIVE COCCI:MANY SQUAMOUS EPI CELL:NONE SEEN PMN (WBCs):MODERATE Unless otherwise specified, Testing Performed by: [address] [address] For Inquires, the Physician may contact the Microbiology department at [phone] ANAEROBIC-AEROBIC CULTURE Preliminary Preliminary MANY [ESCHERICHIA COLI] on 11/18/21 at 0956 FEW [STREPTOCOCCUS ANGINOSUS] on 11/19/21 at 1052 MODERATE [BACTEROIDES FRAGILIS] on 11/19/21 at 1052 MANY [PARVIMONAS MICRA] on 11/19/21 at 1052 ESCHERICHIA COLI UNIDENTIFIED ORGANISM STREPTOCOCCUS ANGINOSUS BACTEROIDES FRAGILIS PARVIMONAS MICRA ANTIMICROBIAL SUSCEPTIBILITY Preliminary Comment NEG KIM 56 ESCHERICHIA COLI ANTIBIOTIC RESULT INTERPRETATION AMPICILLIN/SULBACTAM <=4/2 S AMIKACIN <=16 S AMPICILLIN <=8 S AMOXICILLIN/K CLAVULANATE <=8/4 S AZTREONAM <=4 S CEFTRIAXONE <=1 S CEFTAZIDIME <=1 S RUN DATE: 11/19/21 [facility] LAB *LIVE* PAGE 2 RUN TIME: 1056 Specimen Inquiry SPEC: [id number] PATIENT: JOHNASHLEIGHBILLY [id number] (Continued) Procedure Result CONTINUED ON NEXT PAGE --- --------- RUN DATE: 11/19/21 [facility] LAB *LIVE* PAGE 3 RUN TIME: 1056 Specimen Inquiry SPEC: [id number] PATIENT: REENA LOPEZ [id number] (Continued) Procedure Result ANTIMICROBIAL SUSCEPTIBILITY Preliminary (continued) CEFOTAXIME <=2 S CEFOXITIN <=8 S CEFAZOLIN <=2 S CIPROFLOXACIN <=0.25 S CEFEPIME <=2 S CEFUROXIME <=4 S CEFTAZIDIME/AVIBACTAM <=4 S ERTAPENEM <=0.5 S GENTAMICIN <=2 S LEVOFLOXACIN <=0.5 S MEROPENEM <=1 S PIPERACILLIN/TAZOBACTAM <=8 S TRIMETHOPRIM/SULFAMETHOXAZOLE <=0.5/9.5 S TETRACYCLINE <=4 S TOBRAMYCIN <=2 S Unless otherwise specified, Testing Performed by: [address] [address] For Inquires, the Physician may contact the Microbiology department at [phone] Objective: Assessment: 1. Left thigh and groin abscess, Status post Incision and Drainage. Cultures positive for E coli, Bacteroides,Parvimonas 2. Lactic acidosis/sepsis. Improved 3. Leukocytosis. Improved 4. Fever. Improved 5. Hypotension, requiring vasopressor support. Improved 6. Mild acute kidney injury. 7. Thrombocytopenia Plan: Plan of Care Continue Reinaldo, Monitor left abdominal wall closely CT Abdo reviewed Gen surgery following Wound care as directed, still has very large left groin wound with induration Continue supportive care. Follow the cultures NITZA JACOBSON MD Nov 25, 2021 09:00
[2021-11-25] MEDS: MULTIVITAMIN with MINERAL TABLET. PO SCH (09:43)
[2021-11-25] MEDS: LACTOBACILLUS RHAMNOSUS GG 1 CAPSULE. PO SCH ×2 (09:43→21:04)
[2021-11-25] MEDS: oxyCODONE/APAP 5/325 1 TAB TABLET PO PRN ×2 (09:46→16:58)
[2021-11-25 10:00] VITALS: BP 127/75
--- NOTE | 2021-11-25 10:52 | PDOC ---
SURGICAL PROGRESS NOTE DATE: 11/25/21 TIME: 10:50 Subjective resting maybe a little better Vital Signs Vital Signs Date Time Temp Pulse Resp B/P (MAP) Pulse Ox O2 Delivery O2 Flow Rate FiO2 11/25/21 09:46 Room Air 11/25/21 07:00 98.6 78 20 130/84 (99) 96 98.6 11/24/21 17:32 6.0 I&O Intake and Output 11/25/21 07:00 Intake Total 990 ml Output Total 5625 ml Balance -4635 ml Intake Oral 990 ml Output Urine Total 5625 ml General: Alert, Cooperative Abdomen: Soft, Other (less flank erythema) Skin: Other (wound covered ) Labs Laboratory Tests Test 11/24/21 16:25 White Blood Count 11.1 x10^3/uL (4.0-11.0) Red Blood Count 3.46 x10^6/uL (4.30-5.70) Hemoglobin 10.9 g/dL (13.0-17.5) Hematocrit 32.5 % (39.0-53.0) Mean Corpuscular Volume 94 fL (79-100) Mean Corpuscular Hemoglobin 32 pg (25-35) Mean Corpuscular Hemoglobin Concent 34 g/dL (31-37) Red Cell Distribution Width 11.9 % (11.5-14.5) Platelet Count 301 x10^3/uL (140-400) Neutrophils (%) (Auto) 82 % (31-73) Lymphocytes (%) (Auto) 11 % (24-48) Monocytes (%) (Auto) 7 % (0-9) Eosinophils (%) (Auto) 0 % (0-3) Basophils (%) (Auto) 0 % (0-3) Neutrophils # (Auto) 9.1 x10^3/uL (1.8-7.7) Lymphocytes # (Auto) 1.2 x10^3/uL (1.0-4.8) Monocytes # (Auto) 0.7 x10^3/uL (0.0-1.1) Eosinophils # (Auto) 0.0 x10^3/uL (0.0-0.7) Basophils # (Auto) 0.0 x10^3/uL (0.0-0.2) Sodium Level 141 mmol/L (136-145) Potassium Level 4.1 mmol/L (3.5-5.1) Chloride Level 107 mmol/L (98-107) Carbon Dioxide Level 25 mmol/L (21-32) Anion Gap 9 (6-14) Blood Urea Nitrogen 12 mg/dL (8-26) Creatinine 0.7 mg/dL (0.7-1.3) Estimated GFR (Cockcroft-Gault) 126.9 Glucose Level 107 mg/dL (70-99) Calcium Level 7.5 mg/dL (8.5-10.1) Magnesium Level 2.0 mg/dL (1.8-2.4) Laboratory Tests Test 11/24/21 16:25 White Blood Count 11.1 x10^3/uL (4.0-11.0) Red Blood Count 3.46 x10^6/uL (4.30-5.70) Hemoglobin 10.9 g/dL (13.0-17.5) Hematocrit 32.5 % (39.0-53.0) Mean Corpuscular Volume 94 fL (79-100) Mean Corpuscular Hemoglobin 32 pg (25-35) Mean Corpuscular Hemoglobin Concent 34 g/dL (31-37) Red Cell Distribution Width 11.9 % (11.5-14.5) Platelet Count 301 x10^3/uL (140-400) Neutrophils (%) (Auto) 82 % (31-73) Lymphocytes (%) (Auto) 11 % (24-48) Monocytes (%) (Auto) 7 % (0-9) Eosinophils (%) (Auto) 0 % (0-3) Basophils (%) (Auto) 0 % (0-3) Neutrophils # (Auto) 9.1 x10^3/uL (1.8-7.7) Lymphocytes # (Auto) 1.2 x10^3/uL (1.0-4.8) Monocytes # (Auto) 0.7 x10^3/uL (0.0-1.1) Eosinophils # (Auto) 0.0 x10^3/uL (0.0-0.7) Basophils # (Auto) 0.0 x10^3/uL (0.0-0.2) Sodium Level 141 mmol/L (136-145) Potassium Level 4.1 mmol/L (3.5-5.1) Chloride Level 107 mmol/L (98-107) Carbon Dioxide Level 25 mmol/L (21-32) Anion Gap 9 (6-14) Blood Urea Nitrogen 12 mg/dL (8-26) Creatinine 0.7 mg/dL (0.7-1.3) Estimated GFR (Cockcroft-Gault) 126.9 Glucose Level 107 mg/dL (70-99) Calcium Level 7.5 mg/dL (8.5-10.1) Magnesium Level 2.0 mg/dL (1.8-2.4) Problem List Problems Medical Problems: (1) Elevated LFTs Status: Acute (2) Fourniers gangrene Status: Acute (3) Hyperbilirubinemia Status: Acute (4) Sepsis Status: Acute (5) Septic shock Status: Acute Assessment/Plan reviewed wound care note supportive care, no additional surgery plans at this time Justicifation of Admission Dx: Justifications for Admission: Justification of Admission Dx: Yes BERNARDO BLANCAS [employer] S[employer]OL VISITOR Nov 25, 2021 10:51
--- NOTE | 2021-11-25 12:24 | PDOC ---
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 coli Severe hypokalemia 2.9 (11/17-11/18) Possible necrotic fasciitis Acute electrolyte derangement due to volume depletion Lactic acidosis FROY due to vasomotor motor nephropathy Moderate protein malnutrition Lactic acidosis Fevers Hypotension FROY History of Present Illness History of Present Illness 11/17/2021 No acute events overnight. Patient seen and examined bedside. Surgical wound is healing well without any purulent drainage, active bleeding or malodor. Continuing with aggressive wound care and IV antibiotics. Pain is well controlled on IV and p.o. pain regimen 11/24/2021. Patient's chart, labs, images were reviewed and discussed with RN No acute events overnight. Patient seen and examined bedside while getting dressing changed by wound care. Wound has good borders without any purulent or malodorous drainage. Erythema is resolving on the abdominal wall. Patient is in good spirits and pain is improved. Patient's chart, labs, images were reviewed and discussed with RN 11/23/2021 Patient seen and examined. Discussed with RN. Chart reviewed. Patient had CT abdomen and pelvis w/ oral and IV contrast completed 11/22. Left abdominal erythema has slightly decreased in comparison to yesterday. Per the cultures, Infectious Disease is still continuing Zosyn. 11/22/2021 Patient seen and examined Discussed with RN Chart reviewed Per the cultures, infectious disease was able to stop the Zyvox we are still using Zosyn 11/21/2021 Patient seen and examined Discussed with RN Chart reviewed He currently has IV Zyvox and IV Zosyn hanging Has a right IJ triple-lumen 36-year-old male presents with history of a "boil on his buttock for the past 2 weeks and states that he scratched and popped it a while ago. Endorses chills and fevers and extreme pain in his left thigh. Denies any chest pain, shortness of breath, abdominal pain, diarrhea, dysuria or bloody diarrhea. No relative past medical history of diabetes or hypertension. Former smoker but quit a few years ago. 11/17/2021 No acute events overnight. Patient underwent formal I&D yesterday. Pain is well controlled. Weaned off vasopressor. VSS. Patient's chart, labs, images were reviewed and discussed with RN 11/18/2021 No acute events overnight. Vasopressors have been weaned off. White count trending down. Fever of 101.8. Will recommend more aggressive wound care of at least 2-3 times per day dry to dry and packing changes. Patient's chart, labs, images were reviewed and discussed with RN 11/19/2021 No acute events overnight. Afebrile vital signs stable. Saturating 99% on room air. Aggressive wound care. Continue with empiric IV antibiotics. Pain is better controlled. Patient's chart, labs, images were reviewed and discussed with RN 11/20/2021 Patient seen and examined. Discussed with RN. Chart reviewed. Patient awake and feeling better today. Zosyn hanging. Vitals/I&O Vitals/I&O: Vital Signs Date Time Temp Pulse Resp B/P (MAP) Pulse Ox O2 Delivery O2 Flow Rate FiO2 11/25/21 10:16 Room Air 11/25/21 10:00 97.3 76 18 127/75 (92) 96 97.3 11/24/21 17:32 6.0 I & O 11/24/21 11/24/21 11/25/21 15:00 23:00 07:00 Intake Total 440 ml 250 ml 300 ml Output Total 2925 ml 900 ml 1800 ml Balance -2485 ml -650 ml -1500 ml Physical Exam Physical Exam: GENERAL: Alert, oriented gentleman, not in distress. HEENT: Both pupils are round and reacting. No conjunctival lesion. No lesion in the mouth. NECK: Supple. No JVP, LUNGS: Clear. HEART: S1, S2, regular. ABDOMEN: Mildly distended,Redness and induration present on the left side of the abdomen, bowel sounds present induration on the left groin and lower abdomen. Wound is clean. Deep. EXTREMITIES: Left lower extremity redness, swelling present more on the medial aspect of the thigh and lower leg improved SKIN: Unremarkable. His scrotum is unremarkable. His post-surgical dressing was not opened. 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 Psych calm cooperative Right IJ clean General: Alert, Cooperative Heart: Regular rate, No murmurs Lungs: Clear Abdomen: Soft, Other (less flank erythema) Extremities: No cyanosis, Other (Cellulitis on the left thigh appears to be resolving perhaps 5 or 10%) Skin: Other (wound covered ) Labs Labs: Laboratory Tests Test 11/24/21 16:25 White Blood Count 11.1 x10^3/uL (4.0-11.0) Red Blood Count 3.46 x10^6/uL (4.30-5.70) Hemoglobin 10.9 g/dL (13.0-17.5) Hematocrit 32.5 % (39.0-53.0) Mean Corpuscular Volume 94 fL (79-100) Mean Corpuscular Hemoglobin 32 pg (25-35) Mean Corpuscular Hemoglobin Concent 34 g/dL (31-37) Red Cell Distribution Width 11.9 % (11.5-14.5) Platelet Count 301 x10^3/uL (140-400) Neutrophils (%) (Auto) 82 % (31-73) Lymphocytes (%) (Auto) 11 % (24-48) Monocytes (%) (Auto) 7 % (0-9) Eosinophils (%) (Auto) 0 % (0-3) Basophils (%) (Auto) 0 % (0-3) Neutrophils # (Auto) 9.1 x10^3/uL (1.8-7.7) Lymphocytes # (Auto) 1.2 x10^3/uL (1.0-4.8) Monocytes # (Auto) 0.7 x10^3/uL (0.0-1.1) Eosinophils # (Auto) 0.0 x10^3/uL (0.0-0.7) Basophils # (Auto) 0.0 x10^3/uL (0.0-0.2) Sodium Level 141 mmol/L (136-145) Potassium Level 4.1 mmol/L (3.5-5.1) Chloride Level 107 mmol/L (98-107) Carbon Dioxide Level 25 mmol/L (21-32) Anion Gap 9 (6-14) Blood Urea Nitrogen 12 mg/dL (8-26) Creatinine 0.7 mg/dL (0.7-1.3) Estimated GFR (Cockcroft-Gault) 126.9 Glucose Level 107 mg/dL (70-99) Calcium Level 7.5 mg/dL (8.5-10.1) Magnesium Level 2.0 mg/dL (1.8-2.4) Assessment and Plan Assessmemt and Plan Problems Medical Problems: (1) Elevated LFTs Status: Acute (2) Fourniers gangrene Status: Acute (3) Hyperbilirubinemia Status: Acute (4) Sepsis Status: Acute (5) Septic shock Status: Acute Comment Review of Relevant I have reviewed the following items fito (where applicable) has been applied. Justifications for Admission Other Justification Sepsis with left thigh abscess WINNIE CAN MD Nov 25, 2021 12:24
--- NOTE | 2021-11-25 12:33 | NUR ---
SS following up with discharge planning. SS reviewed pt chart and discussed with pt RN. Pt is currently on room air. COVID19 negative. Pt on IV Zosyn. Wound care, ID, and surgery following. Self pay. Med Assist following. Discharge plan is currently to home when medically ready for discharge. SS will continue to follow for discharge planning.
[2021-11-25 15:00] VITALS: BP 119/74
[2021-11-25] MEDS: ENOXAPARIN 40 MG/0.4 ML SYRINGE. SQ SCH (16:58)
[2021-11-25 19:00] VITALS: BP 117/74
[2021-11-25 22:47] VITALS: BP 132/72
[2021-11-26] MEDS: PIPERACILLIN/TAZOBACTAM 3.375 GM in IV NORMAL SALINE 50ML 50 ML IV SCH ×4 (01:01→17:12)
[2021-11-26 03:00] VITALS: BP 122/72
[2021-11-26] MEDS: IV NORMAL SALINE 1000ML BAG 1,000 ML IV SCH ×3 (05:32→20:00)
[2021-11-26 07:27] VITALS: BP 132/75
[2021-11-26] MEDS: MULTIVITAMIN with MINERAL TABLET. PO SCH (08:19)
[2021-11-26] MEDS: LACTOBACILLUS RHAMNOSUS GG 1 CAPSULE. PO SCH ×2 (08:19→20:15)
[2021-11-26 10:37] VITALS: BP 116/74
--- NOTE | 2021-11-26 12:54 | PDOC ---
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 coli Severe hypokalemia 2.9 (11/17-11/18) Possible necrotic fasciitis Acute electrolyte derangement due to volume depletion Lactic acidosis FROY due to vasomotor motor nephropathy Moderate protein malnutrition Lactic acidosis Fevers Hypotension FROY History of Present Illness History of Present Illness 11/26/2021 No acute events or night. Patient seen and examined bedside. Continue with wound care and IV antibiotics. Patient is self-pay and we are looking for possible ambulatory infusion unit with wound care education. Patient's chart, labs, images were reviewed and discussed with RN 11/25/2021 No acute events overnight. Patient seen and examined bedside. Surgical wound is healing well without any purulent drainage, active bleeding or malodor. Continuing with aggressive wound care and IV antibiotics. Pain is well controlled on IV and p.o. pain regimen 11/24/2021. Patient's chart, labs, images were reviewed and discussed with RN No acute events overnight. Patient seen and examined bedside while getting dressing changed by wound care. Wound has good borders without any purulent or malodorous drainage. Erythema is resolving on the abdominal wall. Patient is in good spirits and pain is improved. Patient's chart, labs, images were reviewed and discussed with RN 11/23/2021 Patient seen and examined. Discussed with RN. Chart reviewed. Patient had CT abdomen and pelvis w/ oral and IV contrast completed 11/22. Left abdominal erythema has slightly decreased in comparison to yesterday. Per the cultures, Infectious Disease is still continuing Zosyn. 11/22/2021 Patient seen and examined Discussed with RN Chart reviewed Per the cultures, infectious disease was able to stop the Zyvox we are still using Zosyn 11/21/2021 Patient seen and examined Discussed with RN Chart reviewed He currently has IV Zyvox and IV Zosyn hanging Has a right IJ triple-lumen 36-year-old male presents with history of a "boil on his buttock for the past 2 weeks and states that he scratched and popped it a while ago. Endorses chills and fevers and extreme pain in his left thigh. Denies any chest pain, shortness of breath, abdominal pain, diarrhea, dysuria or bloody diarrhea. No relative past medical history of diabetes or hypertension. Former smoker but quit a few years ago. 11/17/2021 No acute events overnight. Patient underwent formal I&D yesterday. Pain is well controlled. Weaned off vasopressor. VSS. Patient's chart, labs, images were reviewed and discussed with RN 11/18/2021 No acute events overnight. Vasopressors have been weaned off. White count trending down. Fever of 101.8. Will recommend more aggressive wound care of at least 2-3 times per day dry to dry and packing changes. Patient's chart, labs, images were reviewed and discussed with RN 11/19/2021 No acute events overnight. Afebrile vital signs stable. Saturating 99% on room air. Aggressive wound care. Continue with empiric IV antibiotics. Pain is better controlled. Patient's chart, labs, images were reviewed and discussed with RN 11/20/2021 Patient seen and examined. Discussed with RN. Chart reviewed. Patient awake and feeling better today. Zosyn hanging. Vitals/I&O Vitals/I&O: Vital Signs Date Time Temp Pulse Resp B/P (MAP) Pulse Ox O2 Delivery O2 Flow Rate FiO2 11/26/21 10:37 97.6 86 18 116/74 (88) 97 Room Air 97.6 11/25/21 15:00 97.0 I & O 11/25/21 11/25/21 11/26/21 15:00 23:00 07:00 Intake Total 400 ml Output Total 3000 ml 2400 ml Balance -3000 ml -2000 ml Physical Exam Physical Exam: GENERAL: Alert, oriented gentleman, not in distress. HEENT: Both pupils are round and reacting. No conjunctival lesion. No lesion in the mouth. NECK: Supple. No JVP, LUNGS: Clear. HEART: S1, S2, regular. ABDOMEN: Mildly distended,Redness and induration present on the left side of the abdomen, bowel sounds present induration on the left groin and lower abdomen. Wound is clean. Deep. EXTREMITIES: Left lower extremity redness, swelling present more on the medial aspect of the thigh and lower leg improved SKIN: Unremarkable. His scrotum is unremarkable. His post-surgical dressing was not opened. 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 Psych calm cooperative Right IJ clean General: Alert, Cooperative Heart: Regular rate, No murmurs Lungs: Clear Abdomen: Soft, Other (less flank erythema) Extremities: No cyanosis, Other (Cellulitis on the left thigh appears to be resolving perhaps 5 or 10%) Skin: Other (wound covered ) Assessment and Plan Assessmemt and Plan Problems Medical Problems: (1) Elevated LFTs Status: Acute (2) Fourniers gangrene Status: Acute (3) Hyperbilirubinemia Status: Acute (4) Sepsis Status: Acute (5) Septic shock Status: Acute Comment Review of Relevant I have reviewed the following items fito (where applicable) has been applied. Justifications for Admission Other Justification Sepsis with left thigh abscess WINNIE CAN MD Nov 26, 2021 12:54
--- NOTE | 2021-11-26 13:37 | NUR ---
SS following up with discharge planning. SS reviewed pt chart and discussed with pt RN. Pt is currently on room air. COVID19 negative. Self pay. Med Assist following. ID, surgery, and wound care following. Per ID, pt will need IV antibiotics post discharge. Pt is currently on IV Zosyn multiple times per day. Physicians currently discussing what medication pt will need post discharge. PICC line and outpatient wound care needed as well. SS contacting wound care to discuss. SS will continue to follow for discharge planning.
[2021-11-26 14:13] VITALS: BP 114/71
[2021-11-26] MEDS: ENOXAPARIN 40 MG/0.4 ML SYRINGE. SQ SCH (17:11)
[2021-11-26] MEDS: oxyCODONE/APAP 5/325 1 TAB TABLET PO PRN (17:55)
[2021-11-26 19:00] VITALS: BP 130/76
[2021-11-26 23:00] VITALS: BP 114/70
[2021-11-27] VITALS (9 sets, daily range): BP systolic 105–145; BP diastolic 64–78
[2021-11-27] MEDS: oxyCODONE/APAP 5/325 1 TAB TABLET PO PRN ×2 (01:03→21:25)
[2021-11-27] MEDS: PIPERACILLIN/TAZOBACTAM 3.375 GM in IV NORMAL SALINE 50ML 50 ML IV SCH ×4 (01:04→18:05)
[2021-11-27] MEDS: IV NORMAL SALINE 1000ML BAG 1,000 ML IV SCH ×2 (06:00→12:53)
[2021-11-27] MEDS: MULTIVITAMIN with MINERAL TABLET. PO SCH (08:03)
[2021-11-27] MEDS: LACTOBACILLUS RHAMNOSUS GG 1 CAPSULE. PO SCH ×2 (08:04→20:43)
--- NOTE | 2021-11-27 08:59 | PDOC ---
Infectious Disease Note Subjective: Subjective Patient feels the same Vital Signs: Vital Signs Vital Signs Date Time Temp Pulse Resp B/P (MAP) Pulse Ox O2 Delivery O2 Flow Rate FiO2 11/27/21 07:13 97.8 74 18 115/78 (90) 97 Room Air 97.8 11/27/21 01:33 97.0 Physical Exam: PHYSICAL EXAM GENERAL: Alert, oriented gentleman, not in distress. HEENT: Both pupils are round and reacting. No conjunctival lesion. No lesion in the mouth. NECK: Supple. No JVP, LUNGS: Clear. HEART: S1, S2, regular. ABDOMEN: Mildly distended,Redness and induration present on the left side of the abdomen, bowel sounds present induration on the left groin and lower abdomen. Wound is clean. Deep. EXTREMITIES: Left lower extremity redness, swelling present more on the medial aspect of the thigh and lower leg improved SKIN: Unremarkable. His scrotum is unremarkable. His post-surgical dressing was not opened. CLINICAL EDUCATION SPECIALIST alert oriented x3 Psych calm cooperative Right IJ clean Medications: Inpatient Meds: Medications reviewed. Labs: Micro RUN DATE: 11/19/21 [facility] *LIVE* PAGE 1 RUN TIME: 1056 Specimen Inquiry --- --------- PATIENT: REENA LOPEZ ACCT: [id number] LOC: 1 [place] ICU U: [id number] AGE/SX: 36/M ROOM: 104 RE11/16/[address]: LILA DENT MD : 1985 BED: 1 DIS: STATUS: ADM IN TLOC: SPEC #: [id number] PAOLA: 11/16/21 STATUS: RES REQ #: [id number] RECD: 11/16/[address] [facility] DR: LILA DENT MD SOURCE: ABSCESS ENTR: 11/16/21 [facility] DR: KENDY SORIANO MD [facility]: NO KASIE SHARPE MD ORDERED: ANAER/AEROB/GS COMMENTS: LEFT THIGH ABSCESS -- Procedure Result GRAM STAIN Final Final GRAM NEGATIVE RODS:MANY GRAM POSITIVE RODS:MANY GRAM POSITIVE COCCI:MANY SQUAMOUS EPI CELL:NONE SEEN PMN (WBCs):MODERATE Unless otherwise specified, Testing Performed by: [address] [address] For Inquires, the Physician may contact the Microbiology department at [phone] ANAEROBIC-AEROBIC CULTURE Preliminary Preliminary MANY [ESCHERICHIA COLI] on 11/18/21 at 0956 FEW [STREPTOCOCCUS ANGINOSUS] on 11/19/21 at 1052 MODERATE [BACTEROIDES FRAGILIS] on 11/19/21 at 1052 MANY [PARVIMONAS MICRA] on 11/19/21 at 1052 ESCHERICHIA COLI UNIDENTIFIED ORGANISM STREPTOCOCCUS ANGINOSUS BACTEROIDES FRAGILIS PARVIMONAS MICRA ANTIMICROBIAL SUSCEPTIBILITY Preliminary Comment NEG KIM 56 ESCHERICHIA COLI ANTIBIOTIC RESULT INTERPRETATION AMPICILLIN/SULBACTAM <=4/2 S AMIKACIN <=16 S AMPICILLIN <=8 S AMOXICILLIN/K CLAVULANATE <=8/4 S AZTREONAM <=4 S CEFTRIAXONE <=1 S CEFTAZIDIME <=1 S RUN DATE: 11/19/21 [facility] *LIVE* PAGE 2 RUN TIME: 1056 Specimen Inquiry SPEC: [id number] PATIENT: REENA LOPEZ [id number] (Continued) Procedure Result CONTINUED ON NEXT PAGE - RUN DATE: 11/19/21 [facility] *LIVE* PAGE 3 RUN TIME: 1056 Specimen Inquiry SPEC: [id number] PATIENT: REENA LOPEZ [id number] (Continued) Procedure Result ANTIMICROBIAL SUSCEPTIBILITY Preliminary (continued) CEFOTAXIME <=2 S CEFOXITIN <=8 S CEFAZOLIN <=2 S CIPROFLOXACIN <=0.25 S CEFEPIME <=2 S CEFUROXIME <=4 S CEFTAZIDIME/AVIBACTAM <=4 S ERTAPENEM <=0.5 S GENTAMICIN <=2 S LEVOFLOXACIN <=0.5 S MEROPENEM <=1 S PIPERACILLIN/TAZOBACTAM <=8 S TRIMETHOPRIM/SULFAMETHOXAZOLE <=0.5/9.5 S TETRACYCLINE <=4 S TOBRAMYCIN <=2 S Unless otherwise specified, Testing Performed by: [address] [address] For Inquires, the Physician may contact the Microbiology department at [phone] Objective: Assessment: 1. Left thigh and groin abscess, Status post Incision and Drainage. Cultures positive for E coli, Bacteroides,Parvimonas 2. Lactic acidosis/sepsis. Improved 3. Leukocytosis. Improved 4. Fever. Improved 5. Hypotension, requiring vasopressor support. Improved 6. Mild acute kidney injury. 7. Thrombocytopenia Plan: Plan of Care Continue Zosyn, Monitor left abdominal wall closely CT Abdo reviewed Gen surgery following Wound care as directed, still has very large left groin wound with induration Continue supportive care. Follow the cultures NITZA JACOBSON MD Nov 27, 2021 08:59
--- NOTE | 2021-11-27 08:59 | PDOC ---
SURGICAL PROGRESS NOTE DATE: 11/27/21 TIME: 08:57 Subjective still with soreness to left flank area Vital Signs Vital Signs Date Time Temp Pulse Resp B/P (MAP) Pulse Ox O2 Delivery O2 Flow Rate FiO2 11/27/21 07:13 97.8 74 18 115/78 (90) 97 Room Air 97.8 11/27/21 01:33 97.0 I&O Intake and Output 11/27/21 07:00 Intake Total 550 ml Output Total 3200 ml Balance -2650 ml Intake Oral 400 ml IV Total 150 ml Output Urine Total 3200 ml General: Alert, Cooperative Skin: Other (left flank erythema improving, dressing in place to wound ) Problem List Problems Medical Problems: (1) Elevated LFTs Status: Acute (2) Fourniers gangrene Status: Acute (3) Hyperbilirubinemia Status: Acute (4) Sepsis Status: Acute (5) Septic shock Status: Acute Assessment/Plan wound care, abx no additional surgery plans at this time --noted US results, will ask IR to eval if drainage possible of left abdominal collection Justicifation of Admission Dx: Justifications for Admission: Justification of Admission Dx: Yes BERNARDO BLANCAS X RAY OPERATOR Nov 27, 2021 08:59
--- NOTE | 2021-11-27 10:32 | RAD ---
EXAM: Abdomen sonogram. HISTORY: Fluid collection status post abscess drain. TECHNIQUE: Sonographic imaging of the ventral abdominal wall was performed. COMPARISON: CT dated 11/22/2021. FINDINGS: There is a large complex fluid collection within the left lower quadrant ventral abdominal wall measuring 13.0 x 4.9 x 2.2 cm. IMPRESSION: Large complex collection within the left lower quadrant ventral abdominal wall measuring 13.0 cm. The differential includes hematoma as well as abscess/phlegmon. This appears increased john red to the prior CT, a component of which may be due to differences in imaging modality. Electronically signed by: Gill Saucedo MD (11/27/2021 10:30 AM) [id number]
--- NOTE | 2021-11-27 10:53 | PDOC ---
Infectious Disease Note Subjective: Subjective Patient feels the same Vital Signs: Vital Signs Vital Signs Date Time Temp Pulse Resp B/P (MAP) Pulse Ox O2 Delivery O2 Flow Rate FiO2 11/27/21 10:12 98.4 78 18 113/64 (80) 98 Room Air 98.4 11/27/21 08:00 97.0 Physical Exam: PHYSICAL EXAM GENERAL: Alert, oriented gentleman, not in distress. HEENT: Both pupils are round and reacting. No conjunctival lesion. No lesion in the mouth. NECK: Supple. No JVP, LUNGS: Clear. HEART: S1, S2, regular. ABDOMEN: Mildly distended, continues to have redness and induration present on the left side of the abdomen, more localized, tender, bowel sounds present induration on the left groin and lower abdomen. Wound is clean. Deep. EXTREMITIES: Left lower extremity redness, swelling present more on the medial aspect of the thigh and lower leg improved SKIN: No generalized rash except for above his scrotum is unremarkable. His post-surgical dressing was not opened. MANAGER PROGRAM MANAGEMENT alert oriented x3 Psych calm cooperative Right IJ clean Medications: Inpatient Meds: Medications reviewed. Labs: Micro RUN DATE: 11/19/21 [facility] *LIVE* PAGE 1 RUN TIME: 1056 Specimen Inquiry PATIENT: REENA LOPEZ ACCT: [id number] LOC: 1 [place] ICU U: [id number] AGE/SX: 36/M ROOM: 104 RE11/16/[address]: LILA DENT MD : 1985 BED: 1 DIS: STATUS: ADM IN TLOC: ----- ------- SPEC #: [id number] PAOLA: 11/16/21 STATUS: RES REQ #: [id number] RECD: 11/16/[address]: LILA DENT MD SOURCE: ABSCESS ENTR: 11/16/21 [facility] [address]: KENDY SORIANO MD SPDC: KASIE TERRELL MD ORDERED: ANAER/AEROB/GS COMMENTS: LEFT THIGH ABSCESS Procedure Result --------- --- GRAM STAIN Final Final GRAM NEGATIVE RODS:MANY GRAM POSITIVE RODS:MANY GRAM POSITIVE COCCI:MANY SQUAMOUS EPI CELL:NONE SEEN PMN (WBCs):MODERATE Unless otherwise specified, Testing Performed by: [address] [address] For Inquires, the Physician may contact the Microbiology department at [phone] ANAEROBIC-AEROBIC CULTURE Preliminary Preliminary MANY [ESCHERICHIA COLI] on 11/18/21 at 0956 FEW [STREPTOCOCCUS ANGINOSUS] on 11/19/21 at 1052 MODERATE [BACTEROIDES FRAGILIS] on 11/19/21 at 1052 MANY [PARVIMONAS MICRA] on 11/19/21 at 1052 ESCHERICHIA COLI UNIDENTIFIED ORGANISM STREPTOCOCCUS ANGINOSUS BACTEROIDES FRAGILIS PARVIMONAS MICRA ANTIMICROBIAL SUSCEPTIBILITY Preliminary Comment NEG KIM 56 ESCHERICHIA COLI ANTIBIOTIC RESULT INTERPRETATION AMPICILLIN/SULBACTAM <=4/2 S AMIKACIN <=16 S AMPICILLIN <=8 S AMOXICILLIN/K CLAVULANATE <=8/4 S AZTREONAM <=4 S CEFTRIAXONE <=1 S CEFTAZIDIME <=1 S RUN DATE: 11/19/21 [facility] *LIVE* PAGE 2 RUN TIME: 1056 Specimen Inquiry SPEC: [id number] PATIENT: REENA LOPEZ [id number] ( Continued) Procedure Result CONTINUED ON NEXT PAGE RUN DATE: 11/19/21 [facility] *LIVE* PAGE 3 RUN TIME: 1056 Specimen Inquiry SPEC: [id number] PATIENT: REENA LOPEZ [id number] (Continued) Procedure Result ANTIMICROBIAL SUSCEPTIBILITY Preliminary (continued) CEFOTAXIME <=2 S CEFOXITIN <=8 S CEFAZOLIN <=2 S CIPROFLOXACIN <=0.25 S CEFEPIME <=2 S CEFUROXIME <=4 S CEFTAZIDIME/AVIBACTAM <=4 S ERTAPENEM <=0.5 S GENTAMICIN <=2 S LEVOFLOXACIN <=0.5 S MEROPENEM <=1 S PIPERACILLIN/TAZOBACTAM <=8 S TRIMETHOPRIM/SULFAMETHOXAZOLE <=0.5/9.5 S TETRACYCLINE <=4 S TOBRAMYCIN <=2 S Unless otherwise specified, Testing Performed by: [address] [address] For Inquires, the Physician may contact the Microbiology department at [phone] Objective: Assessment: 1. Left thigh and groin abscess, Status post Incision and Drainage. Cultures positive for E coli, Bacteroides,Parvimonas 2. Lactic acidosis/sepsis. Improved 3. Leukocytosis. Improved 4. Fever. Improved 5. Hypotension, requiring vasopressor support. Improved 6. Mild acute kidney injury. 7. Thrombocytopenia Plan: Plan of Care Continue Zosyn, Follow-up ultrasound of the abdomen as left lower quadrant area remains unchanged CT Abdo reviewed Gen surgery following Wound care as directed, still has very large left groin wound with induration Continue supportive care. Follow the cultures DC MAXX Discussed with nursing staff Discussed with NITZA Gillette MD Nov 27, 2021 10:53
--- NOTE | 2021-11-27 11:15 | NUR ---
DISCUSSED RESULT OF US WITH DR CAN. PT DOWNGRADED TO MED-SURG STATUS, TRANSFER ORDER PLACED TO MED SURG FLOOR. DESPITE ID WANTING THE TRIPLE LUMEN REMOVED, DR CAN WISHES IT TO REMAIN IN PLACE, PT IS SURGICAL CANDIDATE ET IT MAY BE NEEDED.
--- NOTE | 2021-11-27 13:00 | PDOC ---
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 coli Severe hypokalemia 2.9 (11/17-11/18) Possible necrotic fasciitis Acute electrolyte derangement due to volume depletion Lactic acidosis FROY due to vasomotor motor nephropathy Moderate protein malnutrition Lactic acidosis Fevers Hypotension FROY History of Present Illness History of Present Illness 11/27/2021 No acute events overnight. Patient seen examined bedside. Patient tolerated wound care dressings and IV antibiotics. Left flank fluctuance and if erythema remains present and ultrasound was obtained showing a complex fluid collection. Surgery will consult IR for possible drainage. Patient's chart, labs, images were reviewed and discussed with RN 11/26/2021 No acute events or night. Patient seen and examined bedside. Continue with wound care and IV antibiotics. Patient is self-pay and we are looking for possible ambulatory infusion unit with wound care education. Patient's chart, labs, images were reviewed and discussed with RN 11/25/2021 No acute events overnight. Patient seen and examined bedside. Surgical wound is healing well without any purulent drainage, active bleeding or malodor. Continuing with aggressive wound care and IV antibiotics. Pain is well controlled on IV and p.o. pain regimen 11/24/2021. Patient's chart, labs, images were reviewed and discussed with RN No acute events overnight. Patient seen and examined bedside while getting dressing changed by wound care. Wound has good borders without any purulent or malodorous drainage. Erythema is resolving on the abdominal wall. Patient is in good spirits and pain is improved. Patient's chart, labs, images were reviewed and discussed with RN 11/23/2021 Patient seen and examined. Discussed with RN. Chart reviewed. Patient had CT abdomen and pelvis w/ oral and IV contrast completed 11/22. Left abdominal erythema has slightly decreased in comparison to yesterday. Per the cultures, Infectious Disease is still continuing Zosyn. 11/22/2021 Patient seen and examined Discussed with RN Chart reviewed Per the cultures, infectious disease was able to stop the Zyvox we are still using Zosyn 11/21/2021 Patient seen and examined Discussed with RN Chart reviewed He currently has IV Zyvox and IV Zosyn hanging Has a right IJ triple-lumen 36-year-old male presents with history of a "boil on his buttock for the past 2 weeks and states that he scratched and popped it a while ago. Endorses chills and fevers and extreme pain in his left thigh. Denies any chest pain, shortness of breath, abdominal pain, diarrhea, dysuria or bloody diarrhea. No relative past medical history of diabetes or hypertension. Former smoker but quit a few years ago. 11/17/2021 No acute events overnight. Patient underwent formal I&D yesterday. Pain is well controlled. Weaned off vasopressor. VSS. Patient's chart, labs, images were reviewed and discussed with RN 11/18/2021 No acute events overnight. Vasopressors have been weaned off. White count trending down. Fever of 101.8. Will recommend more aggressive wound care of at least 2-3 times per day dry to dry and packing changes. Patient's chart, labs, images were reviewed and discussed with RN 11/19/2021 No acute events overnight. Afebrile vital signs stable. Saturating 99% on room air. Aggressive wound care. Continue with empiric IV antibiotics. Pain is better controlled. Patient's chart, labs, images were reviewed and discussed with RN 11/20/2021 Patient seen and examined. Discussed with RN. Chart reviewed. Patient awake and feeling better today. Zosyn hanging. Vitals/I&O Vitals/I&O: Vital Signs Date Time Temp Pulse Resp B/P (MAP) Pulse Ox O2 Delivery O2 Flow Rate FiO2 11/27/21 10:12 98.4 78 18 113/64 (80) 98 Room Air 98.4 11/27/21 08:00 97.0 I & O 11/26/21 11/26/21 11/27/21 15:00 23:00 07:00 Intake Total 50 ml 50 ml 450 ml Output Total 1600 ml 1600 ml Balance 50 ml -1550 ml -1150 ml Physical Exam Physical Exam: GENERAL: Alert, oriented gentleman, not in distress. HEENT: Both pupils are round and reacting. No conjunctival lesion. No lesion in the mouth. NECK: Supple. No JVP, LUNGS: Clear. HEART: S1, S2, regular. ABDOMEN: Mildly distended, continues to have redness and induration present on the left side of the abdomen, more localized, tender, bowel sounds present induration on the left groin and lower abdomen. Wound is clean. Deep. EXTREMITIES: Left lower extremity redness, swelling present more on the medial aspect of the thigh and lower leg improved SKIN: No generalized rash except for above his scrotum is unremarkable. His post-surgical dressing was not opened. TECHNICAL SYSTEMS ARCHITECT alert oriented x3 Psych calm cooperative Right IJ clean General: Alert, Cooperative Heart: Regular rate, No murmurs Lungs: Clear Abdomen: Soft, Other (less flank erythema) Extremities: No cyanosis, Other (Cellulitis on the left thigh appears to be resolving perhaps 5 or 10%) Skin: Other (left flank erythema improving, dressing in place to wound ) Assessment and Plan Assessmemt and Plan Problems Medical Problems: (1) Elevated LFTs Status: Acute (2) Fourniers gangrene Status: Acute (3) Hyperbilirubinemia Status: Acute (4) Sepsis Status: Acute (5) Septic shock Status: Acute Comment Review of Relevant I have reviewed the following items fito (where applicable) has been applied. Justifications for Admission Other Justification Sepsis with left thigh abscess WINNIE CAN MD Nov 27, 2021 13:00
[2021-11-27] MEDS ORDERED: LIDOCAINE WITH 8.4% SOD BICARB 3 ML DISP.SYRIN. ONE (14:30)
[2021-11-27] MEDS ORDERED: LIDOCAINE WITH 8.4% SOD BICARB 3 ML DISP.SYRIN. IJ ONE (15:00)
--- NOTE | 2021-11-27 16:28 | RAD ---
Procedure: Ultrasound-guided drain placement 11/27/2021 Clinical Indication: Patient with concern for abscess in the left lower quadrant. Anesthesia: Local anesthesia only. Continuous cardiopulmonary monitoring was performed by independent qualified nursing personnel. Complications: None Consent: The procedure was explained in its entirety to the patient or the patients designated repre sentative by a member of the treatment team, including a discussion of the risks, benefits and common ly accepted alternatives to the procedure, as well as the expected consequences of no therapy whatsoe philip. Discussion of the risks included, but was not limited to, those that are most frequent and those that are rare but possibly severe or life-threatening, as well as the possibility of unforeseen comp lications. All questions were answered and informed consent was obtained. Sterility: All elements of maximal sterile barrier technique including the use of a cap, mask, steril e gloves, sterile drape, appropriate hand hygiene, and 2% chlorhexidine for cutaneous antisepsis (or acceptable alternative antiseptic per current guidelines) were followed for this procedure. Patient was placed in the prone position. The left lower quadrant was prepped and draped in appropria te sterile fashion. A timeout was performed. Limited ultrasound scanning of the subcutaneous tissues was performed. The fluid collection was identified and a skin entry site was marked on the patient's skin. Local lidocaine was given. A small skin brandon was made followed by the 18-gauge needle which wa s advanced to the fluid collection. There is immediate return of purulent material. A CT wire was adv anced through the needle and the needle was exchanged for a 8 Bulgarian dilator. A 10 Bulgarian pigtail denton in was then placed in the collection and sutured the patient's skin. A sterile dressing was placed ov er top. Fluid was sent for culture. Impression: Ultrasound guided drain placement in the left lower quadrant subcutaneous abscess. Electronically signed by: Lee White (11/27/2021 4:25 PM) [id number]
[2021-11-27] MEDS: ENOXAPARIN 40 MG/0.4 ML SYRINGE. SQ SCH (16:43)
[2021-11-28] MEDS: PIPERACILLIN/TAZOBACTAM 3.375 GM in IV NORMAL SALINE 50ML 50 ML IV SCH ×4 (00:30→17:09)
[2021-11-28] MEDS: IV NORMAL SALINE 1000ML BAG 1,000 ML IV SCH ×3 (02:26→13:53)
[2021-11-28] MEDS: oxyCODONE/APAP 5/325 1 TAB TABLET PO PRN ×4 (02:34→21:22)
[2021-11-28 03:28] VITALS: BP 118/74
[2021-11-28 07:15] VITALS: BP 119/75
[2021-11-28] MEDS: MULTIVITAMIN with MINERAL TABLET. PO SCH (08:32)
[2021-11-28] MEDS: LACTOBACILLUS RHAMNOSUS GG 1 CAPSULE. PO SCH ×2 (08:32→21:21)
--- NOTE | 2021-11-28 09:47 | PDOC ---
Infectious Disease Note Subjective: Subjective Patient feels the same Vital Signs: Vital Signs Vital Signs Date Time Temp Pulse Resp B/P (MAP) Pulse Ox O2 Delivery O2 Flow Rate FiO2 11/28/21 08:32 Room Air 11/28/21 07:15 98.4 83 20 119/75 (90) 96 98.4 11/28/21 02:34 97.0 Physical Exam: PHYSICAL EXAM GENERAL: Alert, oriented gentleman, not in distress. HEENT: Both pupils are round and reacting. No conjunctival lesion. No lesion in the mouth. NECK: Supple. LUNGS: Clear. HEART: S1, S2, regular. ABDOMEN: Mildly distended, continues to have redness and induration present on the left side of the abdomen, more localized, tender, bowel sounds present Now has drain in place with bloody drainage induration on the left groin and lower abdomen. Wound is clean. Deep. EXTREMITIES: Left lower extremity redness, swelling present more on the medial aspect of the thigh and lower leg improved SKIN: No generalized rash except for above his scrotum is unremarkable. His post-surgical dressing was not opened. 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 Labs: Micro RUN DATE: 11/19/21 [facility] *LIVE* PAGE 1 RUN TIME: 1056 Specimen Inquiry PATIENT: REENA LOPEZ ACCT: [id number] LOC: 1 [facility] ICU U: [id number] AGE/SX: 36/M ROOM: [facility] RE11/16/[address]: LILA DENT MD : 1985 BED: 1 DIS: STATUS: ADM IN TLOC: SPEC #: [id number] PAOLA: 11/16/21 STATUS: RES REQ #: [id number] RECD: 11/16/[address]: LILA DENT MD SOURCE: ABSCESS ENTR: 11/16/[address]: KENDY SORIANO MD SPDC: NO KASIE SHARPE MD ORDERED: ANAER/AEROB/GS COMMENTS: LEFT THIGH ABSCESS Procedure Result GRAM STAIN Final Final GRAM NEGATIVE RODS:MANY GRAM POSITIVE RODS:MANY GRAM POSITIVE COCCI:MANY SQUAMOUS EPI CELL:NONE SEEN PMN (WBCs):MODERATE Unless otherwise specified, Testing Performed by: [address] [address] For Inquires, the Physician may contact the Microbiology department at [phone] ANAEROBIC-AEROBIC CULTURE Preliminary Preliminary MANY [ESCHERICHIA COLI] on 11/18/21 at 0956 FEW [STREPTOCOCCUS ANGINOSUS] on 11/19/21 at 1052 MODERATE [BACTEROIDES FRAGILIS] on 11/19/21 at 1052 MANY [PARVIMONAS MICRA] on 11/19/21 at 1052 ESCHERICHIA COLI UNIDENTIFIED ORGANISM STREPTOCOCCUS ANGINOSUS BACTEROIDES FRAGILIS PARVIMONAS MICRA ANTIMICROBIAL SUSCEPTIBILITY Preliminary Comment NEG KIM 56 ESCHERICHIA COLI ANTIBIOTIC RESULT INTERPRETATION AMPICILLIN/SULBACTAM <=4/2 S AMIKACIN <=16 S AMPICILLIN <=8 S AMOXICILLIN/K CLAVULANATE <=8/4 S AZTREONAM <=4 S CEFTRIAXONE <=1 S CEFTAZIDIME <=1 S RUN DATE: 11/19/21 [facility] *LIVE* PAGE 2 RUN TIME: 1056 Specimen Inquiry SPEC: [id number] PATIENT: REENA LOPEZ [id number] (Continued) Procedure Result CONTINUED ON NEXT PAGE RUN DATE: 11/19/21 [facility] *LIVE* PAGE 3 RUN TIME: 1056 Specimen Inquiry SPEC: [id number] PATIENT: REENA LOPEZ [id number] (Continued) Procedure Result ANTIMICROBIAL SUSCEPTIBILITY Preliminary (continued) CEFOTAXIME <=2 S CEFOXITIN <=8 S CEFAZOLIN <=2 S CIPROFLOXACIN <=0.25 S CEFEPIME <=2 S CEFUROXIME <=4 S CEFTAZIDIME/AVIBACTAM <=4 S ERTAPENEM <=0.5 S GENTAMICIN <=2 S LEVOFLOXACIN <=0.5 S MEROPENEM <=1 S PIPERACILLIN/TAZOBACTAM <=8 S TRIMETHOPRIM/SULFAMETHOXAZOLE <=0.5/9.5 S TETRACYCLINE <=4 S TOBRAMYCIN <=2 S Unless otherwise specified, Testing Performed by: [address] [address] For Inquires, the Physician may contact the Microbiology department at [phone] Objective: Assessment: 1. Left thigh and groin abscess, Status post Incision and Drainage. Cultures positive for E coli, Bacteroides,Parvimonas 2. Lactic acidosis/sepsis. Improved 3. Leukocytosis. Improved 4. Fever. Improved 5. Hypotension, requiring vasopressor support. Improved 6. Mild acute kidney injury. 7. Thrombocytopenia Plan: Plan of Care Continue Zosyn, Drain in place Gen surgery following Wound care as directed, still has very large left groin wound with induration Continue supportive care. Follow the cultures DENEEN LILLY Discussed with nursing staff Discussed with NITZA Quiros MD Nov 28, 2021 09:47
[2021-11-28 10:58] VITALS: BP 118/74
[2021-11-28] MEDS: fentaNYL PF VIAL 100 MCG/2 ML VIAL IVP PRN (11:49)
--- NOTE | 2021-11-28 13:20 | PDOC ---
PROGRESS NOTES Date of Service DATE: 11/28/21 TIME: 13:19 Subjective Subjective asking for pain meds, no other complaints Objective Objective Vital Signs Date Time Temp Pulse Resp B/P (MAP) Pulse Ox O2 Delivery O2 Flow Rate FiO2 11/28/21 11:49 Room Air 11/28/21 10:58 98.2 94 20 118/74 (89) 96 98.2 11/28/21 02:34 97.0 Intake and Output 11/28/21 07:00 Output Total 1945 ml Balance -1945 ml Output Urine Total 1800 ml Drainage Total 145 ml # Bowel Movements 1 Physical Exam Physical Exam MEMA in place with bloody output Assessment Assessment Problems Medical Problems: (1) Elevated LFTs Status: Acute (2) Fourniers gangrene Status: Acute (3) Hyperbilirubinemia Status: Acute (4) Sepsis Status: Acute (5) Septic shock Status: Acute Plan Plan of Care S/P debridement, placement of EMMA drain, continue with abx, wound care, drainage Comment Review of Relevant I have reviewed the following items fito (where applicable) has been applied. Labs Microbiology 11/16/21 Gram Stain - Final, Complete 11/16/21 Aerobic and Anaerobic Culture - Final, Complete 11/16/21 Antimicrobic Susceptibility - Final, Complete 11/16/21 Blood Culture - Final, Complete NO GROWTH AFTER 5 DAYS 11/16/21 Urine Culture - Final, Complete Medications Current Medications Sodium Chloride 1,000 ml @ 1,000 mls/hr Q1H IV Last administered on 11/15/21at 22:43; Start 11/15/21 at 23:00; Stop 11/15/21 at 23:59; Status DC Piperacillin Sod/ Tazobactam Sod (Zosyn Per Pharmacy) 1 each PRN DAILY PRN MC SEE COMMENTS; Start 11/15/21 at 22:15 Fentanyl Citrate (Fentanyl 2ml Vial) 50 mcg 1X ONCE IV Last administered on 11/15/21at 22:42; Start 11/15/21 at 23:00; Stop 11/15/21 at 23:01; Status DC Piperacillin Sod/ Tazobactam Sod 4.5 gm/Dextrose 100 ml @ 200 mls/hr 1X ONCE IV Last administered on 11/15/21at 22:43; Start 11/15/21 at 23:00; Stop 11/15/21 at 23:29; Status DC Iohexol (Omnipaque 240 Mg/ml) 30 ml 1X ONCE PO Last administered on 11/15/21at 22:50; Start 11/15/21 at 23:00; Stop 11/15/21 at 23:01; Status DC Iohexol (Omnipaque 300 Mg/ml) 75 ml 1X ONCE IV Last administered on 11/15/21at 00:20; Start 11/15/21 at 23:00; Stop 11/15/21 at 23:01; Status DC Info (CONTRAST GIVEN -- Rx MONITORING) 1 each PRN DAILY PRN MC SEE COMMENTS; Start 11/15/21 at 23:00; Stop 11/17/21 at 22:59; Status DC Sodium Chloride 1,000 ml @ 1,000 mls/hr 1X ONCE IV Last administered on at 23:20; Start 11/15/21 at 23:30; Stop 11/16/21 at 00:29; Status DC Piperacillin Sod/ Tazobactam Sod 3.375 gm/Sodium Chloride 50 ml @ 100 mls/hr Q6HRS IV Last administered on 11/28/21at 11:46; Start 11/16/21 at 06:00 Fentanyl Citrate (Fentanyl 2ml Vial) 50 mcg 1X ONCE IV Last administered on 11/16/21at 01:00; Start 11/16/21 at 01:00; Stop 11/16/21 at 01:01; Status DC Vancomycin HCl (Vanco Per Pharmacy) 1 each PRN DAILY PRN MC SEE COMMENTS Last administered on 11/16/21at 04:34; Start 11/16/21 at 01:00; Stop 11/16/21 at 17:42; Status DC Sodium Chloride 500 ml @ 500 mls/hr 1X ONCE IV Last administered on 1at 02:01; Start 11/16/21 at 01:30; Stop 11/16/21 at 02:29; Status DC Vancomycin HCl 2 gm/Sodium Chloride 500 ml @ 250 mls/hr 1X ONCE IV Last administered on 11/16/21at 03:30; Start 11/16/21 at 02:00; Stop 11/16/21 at 03:59; Status DC Clindamycin Phosphate 50 ml @ 100 mls/hr 1X ONCE IV Last administered on 11/16/21at 02:00; Start 11/16/21 at 02:00; Stop 11/16/21 at 02:29; Status DC Ondansetron HCl (Zofran) 4 mg PRN Q8HRS PRN IVP NAUSEA/VOMITING 1ST CHOICE; Start 11/16/21 at 02:30; Stop 11/16/21 at 09:13; Status DC Fentanyl Citrate (Fentanyl 2ml Vial) 50 mcg PRN Q2HRS PRN IVP SEVERE PAIN 7-10 Last administered on 11/28/21at 11:49; Start 11/16/21 at 02:30 Sodium Chloride 1,000 ml @ 150 mls/hr Q6H40M IV Last administered on 11/16/21at 03:03; Start 11/16/21 at 03:00; Stop 11/16/21 at 09:18; Status DC Acetaminophen (Tylenol) 650 mg PRN Q4HRS PRN PO FEVER > 100.3'F Last administered on 11/16/21at 03:10; Start 11/16/21 at 02:30; Stop 11/16/21 at 09:12; Status DC Vancomycin HCl 1.25 gm/Sodium Chloride 250 ml @ 167 mls/hr Q12H IV ; Start 11/16/21 at 16:00; Stop 11/16/21 at 17:38; Status DC Vancomycin HCl (Vancomycin Trough Level) 1 each 1X ONCE MC ; Start 11/17/21 at 15:30; Stop 11/16/21 at 17:42; Status DC Sennosides (Senna) 17.2 mg PRN BID PRN PO CONSTIPATION; Start 11/16/21 at 09:15 Docusate Sodium (Colace) 100 mg PRN DAILY PRN PO HARD STOOLS; Start 11/16/21 at 09:15 Ondansetron HCl (Zofran) 4 mg PRN Q6HRS PRN IVP NAUSEA/VOMITING, 1st CHOICE; Start 11/16/21 at 09:15 Dextrose (Dextrose 50%-Water Syringe) 12.5 gm PRN Q15MIN PRN IV SEE COMMENTS; Start 11/16/21 at 09:15 Sodium Chloride 1,000 ml @ 100 mls/hr Q10H IV Last administered on 11/28/21at 02:26; Start 11/16/21 at 10:00 Acetaminophen (Tylenol) 650 mg PRN Q4HRS PRN PO TEMP OVER 100.4F OR MILD PAIN Last administered on 11/24/21at 21:06; Start 11/16/21 at 09:15 Lorazepam (Ativan) 0.5 mg PRN Q6HRS PRN PO ANXIETY / AGITATION; Start 11/16/21 at 09:15 Lorazepam (Ativan Inj) 0.25 mg PRN Q4HRS PRN IV ANXIETY / AGITATION; Start 11/16/21 at 09:15 Enoxaparin Sodium (Lovenox 40mg Syringe) 40 mg Q24H SQ Last administered on 11/27/21at 16:43; Start 11/16/21 at 16:00 Oxycodone/ Acetaminophen (Percocet 5/325) 1 tab PRN Q4HRS PRN PO MILD PAIN, 2nd CHOICE Last administered on 11/25/21at 16:58; Start 11/16/21 at 09:15 Oxycodone/ Acetaminophen (Percocet 5/325) 2 tab PRN Q4HRS PRN PO MODERATE PAIN, SEVERE PAIN Last administered on 11/28/21at 08:32; Start 11/16/21 at 09:15 Morphine Sulfate (Morphine Sulfate) 1 mg PRN Q1HR PRN IV MODERATE PAIN Last administered on 11/19/21at 07:44; Start 11/16/21 at 09:15 Morphine Sulfate (Morphine Sulfate) 2 mg PRN Q2HR PRN IVP SEVERE PAIN 7-10; Start 11/16/21 at 09:15; Stop 11/17/21 at 09:14; Status DC Prochlorperazine Edisylate (Compazine) 10 mg PRN Q6HRS PRN IV NAUSEA/VOMITING, 2nd CHOICE; Start 11/16/21 at 09:15 Zolpidem Tartrate (Ambien) 2.5 mg PRN QHS PRN PO INSOMNIA; Start 11/16/21 at 09:15 Norepinephrine Bitartrate 8 mg/ Dextrose 258 ml @ 16.022 mls/ hr CONT PRN IV PER PROTOCOL Last administered on 11/16/21at 22:44; Start 11/16/21 at 10:00; Stop 11/19/21 at 13:49; Status DC Fentanyl Citrate (Fentanyl 2ml Vial) 25 mcg PRN Q5MIN PRN IVP MILD PAIN 1-3; Start 11/16/21 at 10:15; Stop 11/16/21 at 18:00; Status DC Fentanyl Citrate (Fentanyl 2ml Vial) 50 mcg PRN Q5MIN PRN IVP MODERATE PAIN 4-6 Last administered on 11/16/21at 12:48; Start 11/16/21 at 10:15; Stop 11/16/21 at 18:00; Status DC Morphine Sulfate (Morphine Sulfate) 1 mg PRN Q10MIN PRN IVP SEVERE PAIN 7-10 Last administered on 11/16/21at 12:55; Start 11/16/21 at 10:15; Stop 11/16/21 at 18:00; Status DC Ringer's Solution 1,000 ml @ 30 mls/hr Q24H IV Last administered on 11/16/21at 10:15; Start 11/16/21 at 10:15; Stop 11/16/21 at 22:14; Status DC Hydromorphone HCl (Dilaudid) 0.5 mg PRN Q10MIN PRN IVP SEVERE PAIN 7-10, 2nd CHOICE; Start 11/16/21 at 10:15; Stop 11/16/21 at 18:00; Status DC Prochlorperazine Edisylate (Compazine) 5 mg PACU PRN PRN IVP NAUSEA, MRX1; Start 11/16/21 at 10:15; Stop 11/16/21 at 18:00; Status DC Clindamycin Phosphate 50 ml @ 100 mls/hr Q8HRS IV Last administered on 11/17/21at 05:42; Start 11/16/21 at 14:00; Stop 11/17/21 at 07:43; Status DC Vasopressin 20 unit/Dextrose 101 ml @ 12 mls/hr CONT PRN IV SEE I/O RECORD; Start 11/16/21 at 11:00; Stop 11/19/21 at 13:49; Status DC Fentanyl Citrate (Fentanyl 2ml Vial) 100 mcg STK-MED ONCE .ROUTE ; Start 10/29 08/19 at 11:53; Stop 11/16/21 at 11:54; Status DC Fentanyl Citrate (Fentanyl 2ml Vial) 100 mcg STK-MED ONCE .ROUTE ; Start at 11:55; Stop 11/16/21 at 11:55; Status DC Lidocaine HCl (Lidocaine Pf 2% Vial) 5 ml STK-MED ONCE .ROUTE ; Start 11/16/21 at 11:57; Stop 11/16/21 at 11:57; Status DC Propofol (Diprivan) 200 mg STK-MED ONCE IV ; Start 11/16/21 at 11:57; Stop 1 01/17/21 at 11:57; Status DC Sevoflurane (Ultane) 60 ml STK-MED ONCE IH ; Start 11/16/21 at 12:06; Stop 11/16/21 at 12:07; Status DC Linezolid/Dextrose 300 ml @ 300 mls/hr Q12HR IV Last administered on 11/21/21at 21:00; Start 11/16/21 at 21:00; Stop 11/22/21 at 08:18; Status DC Potassium Chloride (Klor-Con) 40 meq Q2HR PO Last administered on 11/17/21at 14:54; Start 11/17/21 at 08:00; Stop 11/17/21 at 14:01; Status DC Magnesium Sulfate 50 ml @ 25 mls/hr 1X ONCE IV Last administered on 11/17/21at 08:24; Start 11/17/21 at 07:45; Stop 11/17/21 at 09:44; Status DC Clindamycin Phosphate 50 ml @ 100 mls/hr Q8HRS IV Last administered on 11/20/21at 13:50; Start 11/17/21 at 14:00; Stop 11/20/21 at 16:32; Status DC Lactobacillus Rhamnosus (Culturelle) 1 cap BID PO Last administered on 11/28/21at 08:32; Start 11/17/21 at 09:00 Potassium Chloride/Water 100 ml @ 100 mls/hr 1X ONCE IV Last administered on 11/18/21at 06:43; Start 11/18/21 at 07:00; Stop 11/18/21 at 07:59; Status DC Potassium Bicarbonate (Potassium Effervescent Tablet) 40 meq Q2HR PO Last administered on 11/18/21at 14:06; Start 11/18/21 at 08:00; Stop 11/18/21 at 12:01; Status DC Multivitamins (Thera M Plus) 1 tab DAILY PO Last administered on 11/28/21at 08:32; Start 11/19/21 at 09:00 Potassium Chloride (Klor-Con) 40 meq BID PO Last administered on 11/20/21at 08:27; Start 11/19/21 at 17:00; Stop 11/20/21 at 09:01; Status DC Magnesium Sulfate 50 ml @ 25 mls/hr 1X ONCE IV Last administered on 11/19/21at 16:37; Start 11/19/21 at 17:00; Stop 11/19/21 at 18:59; Status DC Iohexol (Omnipaque 300 Mg/ml) 75 ml 1X ONCE IV ; Start 11/22/21 at 10:15; Stop 11/22/21 at 10:17; Status DC Iohexol (Omnipaque 240 Mg/ml) 30 ml 1X ONCE PO ; Start 11/22/21 at 10:15; Stop 11/22/21 at 10:17; Status DC Lidocaine HCl (Buffered Lidocaine 1%) 3 ml STK-MED ONCE .ROUTE ; Start 11/27/21 at 14:30; Stop 11/27/21 at 14:31; Status DC Lidocaine HCl (Buffered Lidocaine 1%) 3 ml 1X ONCE IJ Last administered on 11/27/21at 15:03; Start 11/27/21 at 15:00; Stop 11/27/21 at 15:01; Status DC Vitals/I & O Vital Sign - Last 24 Hours 11/27/21 11/27/21 11/27/21 11/27/21 15:00 15:10 15:18 15:52 Temp 97.9 97.9 Pulse 70 73 70 54 Resp 15 17 17 18 B/P (MAP) 145/76 (99) 140/75 (96) 137/67 (90) 105/69 (81) Pulse Ox 98 96 96 94 O2 Delivery Room Air Room Air Room Air Room Air 11/27/21 11/27/21 11/27/21 11/27/21 18:45 19:40 21:25 21:55 Temp 97.6 97.6 Pulse 85 Resp 18 20 B/P (MAP) 121/67 (85) Pulse Ox 96 96 96 O2 Delivery Room Air Room Air Room Air Room Air O2 Flow Rate 97.0 11/27/21 11/28/21 11/28/21 11/28/21 23:48 02:34 03:04 03:28 Temp 97.4 97.9 97.4 97.9 Pulse 80 Resp 20 20 20 B/P (MAP) 116/71 (86) 118/74 (89) Pulse Ox 96 96 97 O2 Delivery Room Air Room Air Room Air Room Air O2 Flow Rate 97.0 11/28/21 11/28/21 11/28/21 11/28/21 07:15 07:53 08:32 10:20 Temp 98.4 98.4 Pulse 83 Resp 20 B/P (MAP) 119/75 (90) Pulse Ox 96 O2 Delivery Room Air Room Air Room Air Room Air 11/28/21 11/28/21 10:58 11:49 Temp 98.2 98.2 Pulse 94 Resp 20 B/P (MAP) 118/74 (89) Pulse Ox 96 O2 Delivery Room Air Room Air Intake and Output 11/27/21 11/27/21 11/28/21 15:00 23:00 07:00 Output Total 1900 ml 45 ml Balance -1900 ml -45 ml Justifications for Admission Other Justification Sepsis with left thigh abscess JEOVANY NGUYEN MD Nov 28, 2021 13:20
--- NOTE | 2021-11-28 13:26 | PDOC ---
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 coli Severe hypokalemia 2.9 (11/17-11/18) Possible necrotic fasciitis Acute electrolyte derangement due to volume depletion Lactic acidosis FROY due to vasomotor motor nephropathy Moderate protein malnutrition Lactic acidosis Fevers Hypotension FROY History of Present Illness History of Present Illness 11/28/2021 some marked induration near drain leg are almost completely clear, seen in rrom with RN and ID consult pt condtion reviewed 11/27 No acute events overnight. Patient seen examined bedside. Patient tolerated wound care dressings and IV antibiotics. Left flank fluctuance and if erythema remains present and ultrasound was obtained showing a complex fluid collection. Surgery will consult IR for possible drainage. Patient's chart, labs, images were reviewed and discussed with RN 36-year-old male presents with history of a "boil on his buttock for the past 2 weeks and states that he scratched and popped it a while ago. Endorses chills and fevers and extreme pain in his left thigh. Denies any chest pain, shortness of breath, abdominal pain, diarrhea, dysuria or bloody diarrhea. No relative past medical history of diabetes or hypertension. Former smoker but quit a few years ago. Vitals/I&O Vitals/I&O: Vital Signs Date Time Temp Pulse Resp B/P (MAP) Pulse Ox O2 Delivery O2 Flow Rate FiO2 11/28/21 11:49 Room Air 11/28/21 10:58 98.2 94 20 118/74 (89) 96 98.2 11/28/21 02:34 97.0 I & O 11/27/21 11/27/21 11/28/21 14:59 22:59 06:59 Output Total 1900 ml 45 ml Balance -1900 ml -45 ml Physical Exam Physical Exam: GENERAL: Alert, oriented gentleman, not in distress. HEENT: Both pupils are round and reacting. No conjunctival lesion. No lesion in the mouth. NECK: Supple. LUNGS: Clear. HEART: S1, S2, regular. ABDOMEN: Mildly distended, continues to have redness and induration present on the left side of the abdomen, more localized, tender, bowel sounds present Now has drain in place with bloody drainage induration on the left groin and lower abdomen. Wound is clean. Deep. EXTREMITIES: Left lower extremity redness, swelling present more on the medial aspect of the thigh and lower leg improved SKIN: No generalized rash except for above his scrotum is unremarkable. His post-surgical dressing was not opened. 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 Psych calm cooperative Right IJ clean General: Alert, Cooperative Heart: Regular rate, No murmurs Lungs: Clear Abdomen: Soft, Other (less flank erythema) Extremities: No cyanosis, Other (Cellulitis on the left thigh appears to be resolving perhaps 5 or 10%) Skin: Other (left flank erythema improving, dressing in place to wound ) Assessment and Plan Assessmemt and Plan Problems Medical Problems: (1) Elevated LFTs Status: Acute (2) Fourniers gangrene Status: Acute (3) Hyperbilirubinemia Status: Acute (4) Sepsis Status: Acute (5) Septic shock Status: Acute Comment Review of Relevant I have reviewed the following items fito (where applicable) has been applied. Medications: Current Medications Medications (Trade) Dose Ordered Sig/Maria De Jesus Route PRN Reason Start Time Stop Time Status Last Admin Dose Admin Lidocaine HCl (Buffered Lidocaine 1%) 3 ml 1X ONCE IJ 11/27/21 15:00 11/27/21 15:01 DC 11/27/21 15:03 Justifications for Admission Other Justification Sepsis with left thigh abscess MARK ACUNA MD Nov 28, 2021 13:26
--- NOTE | 2021-11-28 14:04 | NUR ---
Pt. refusing to have L groin dressing changed at this time.
[2021-11-28 15:08] VITALS: BP 131/71
[2021-11-28] MEDS: ENOXAPARIN 40 MG/0.4 ML SYRINGE. SQ SCH (17:09)
[2021-11-28 19:00] VITALS: BP 117/71
--- NOTE | 2021-11-28 19:55 | NUR ---
Patient refused groin dressing change at this time.
[2021-11-28 23:00] VITALS: BP 107/69
[2021-11-29] MEDS: IV NORMAL SALINE 1000ML BAG 1,000 ML IV SCH ×2 (00:41→16:54)
[2021-11-29] MEDS: PIPERACILLIN/TAZOBACTAM 3.375 GM in IV NORMAL SALINE 50ML 50 ML IV SCH ×4 (00:42→17:34)
[2021-11-29] MEDS: oxyCODONE/APAP 5/325 1 TAB TABLET PO PRN ×3 (02:53→17:35)
[2021-11-29 03:00] VITALS: BP 110/69
[2021-11-29] MEDS: fentaNYL PF VIAL 100 MCG/2 ML VIAL IVP PRN ×2 (05:40→12:13)
--- NOTE | 2021-11-29 05:45 | NUR ---
Attempted to do groin dressing change several times. Patient states "It"s to painful."
--- NOTE | 2021-11-29 05:46 | NUR ---
EMMA irrigated with 10 cc sterile saline per order.
[2021-11-29 07:00] VITALS: BP 116/77
[2021-11-29] MEDS: LACTOBACILLUS RHAMNOSUS GG 1 CAPSULE. PO SCH ×2 (08:16→20:06)
[2021-11-29] MEDS: MULTIVITAMIN with MINERAL TABLET. PO SCH (08:17)
[2021-11-29 11:00] VITALS: BP 112/71
[2021-11-29] MEDS ORDERED: fentaNYL PF VIAL 100 MCG/2 ML VIAL IVP ONE (14:15)
--- NOTE | 2021-11-29 14:29 | PDOC ---
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 coli Severe hypokalemia 2.9 (11/17-11/18) Possible necrotic fasciitis Acute electrolyte derangement due to volume depletion Lactic acidosis FROY due to vasomotor motor nephropathy Moderate protein malnutrition Lactic acidosis Fevers Hypotension FROY History of Present Illness History of Present Illness 11/29 he complaints of pain, did not want wound repacked will increae IV pain meds to 100 from 50 follow 11/28/2021 some marked induration near drain leg are almost completely clear, seen in rrom with RN and ID consult pt condtion reviewed 11/27 No acute events overnight. Patient seen examined bedside. Patient tolerated wound care dressings and IV antibiotics. Left flank fluctuance and if erythema remains present and ultrasound was obtained showing a complex fluid collection. Surgery will consult IR for possible drainage. Patient's chart, labs, images were reviewed and discussed with RN 36-year-old male presents with history of a "boil on his buttock for the past 2 weeks and states that he scratched and popped it a while ago. Endorses chills and fevers and extreme pain in his left thigh. Denies any chest pain, shortness of breath, abdominal pain, diarrhea, dysuria or bloody diarrhea. No relative past medical history of diabetes or hypertension. Former smoker but quit a few years ago. Vitals/I&O Vitals/I&O: Vital Signs Date Time Temp Pulse Resp B/P (MAP) Pulse Ox O2 Delivery O2 Flow Rate FiO2 11/29/21 12:43 97 Room Air 11/29/21 11:00 97.4 87 20 112/71 (85) 97.4 11/29/21 02:53 97.0 I & O 11/28/21 11/28/21 11/29/21 14:59 22:59 06:59 Intake Total 300 ml Output Total 2360 ml 1510 ml Balance -2360 ml -1210 ml Physical Exam Physical Exam: GENERAL: Alert, oriented gentleman, not in distress. HEENT: Both pupils are round and reacting. No conjunctival lesion. No lesion in the mouth. NECK: Supple. LUNGS: Clear. HEART: S1, S2, regular. ABDOMEN: Mildly distended, continues to have redness and induration present on the left side of the abdomen, more localized, tender, bowel sounds present Now has drain in place with bloody drainage induration on the left groin and lower abdomen. Wound is clean. Deep. EXTREMITIES: Left lower extremity redness, swelling present more on the medial aspect of the thigh and lower leg improved SKIN: No generalized rash except for above his scrotum is unremarkable. His post-surgical dressing was not opened. 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 nonfocal Psych calm cooperative Right IJ clean General: Alert, Cooperative Heart: Regular rate, No murmurs Lungs: Clear Abdomen: Soft, Other (less flank erythema) Extremities: No cyanosis, Other (Cellulitis on the left thigh appears to be resolving perhaps 5 or 10%) Skin: Other (left flank erythema improving, dressing in place to wound ) Assessment and Plan Assessmemt and Plan Problems Medical Problems: (1) Elevated LFTs Status: Acute (2) Fourniers gangrene Status: Acute (3) Hyperbilirubinemia Status: Acute (4) Sepsis Status: Acute (5) Septic shock Status: Acute Comment Review of Relevant I have reviewed the following items fito (where applicable) has been applied. Justifications for Admission Other Justification Sepsis with left thigh abscess MARK ACUNA MD Nov 29, 2021 14:29
[2021-11-29 15:59] VITALS: BP 123/73
[2021-11-29] MEDS: ENOXAPARIN 40 MG/0.4 ML SYRINGE. SQ SCH (17:35)
[2021-11-29 19:00] VITALS: BP 106/68
[2021-11-29 23:00] VITALS: BP 115/62
--- NOTE | 2021-11-29 23:21 | NUR ---
Right IJ DC"D. Gauze dressing placed over site.
--- NOTE | 2021-11-30 | NUR ---
Dressing change performed to left groin. Area cleansed with wound wash, packed with iodoform, 4x4's trifolded, and secured with medipore tape.
[2021-11-30] MEDS: IV NORMAL SALINE 1000ML BAG 1,000 ML IV SCH ×3 (00:12→22:38)
[2021-11-30] MEDS: PIPERACILLIN/TAZOBACTAM 3.375 GM in IV NORMAL SALINE 50ML 50 ML IV SCH ×4 (00:12→19:26)
[2021-11-30 03:00] VITALS: BP 120/79
[2021-11-30 07:00] VITALS: BP 124/73
[2021-11-30] MEDS: MULTIVITAMIN with MINERAL TABLET. PO SCH (09:12)
[2021-11-30] MEDS: LACTOBACILLUS RHAMNOSUS GG 1 CAPSULE. PO SCH ×2 (09:12→22:32)
[2021-11-30] MEDS: fentaNYL PF VIAL 100 MCG/2 ML VIAL IVP PRN (09:13)
--- NOTE | 2021-11-30 10:05 | PDOC ---
Infectious Disease Note Subjective Subjective Patient feels the same ROS ROS No nausea vomiting diarrhea Vital Sign Vital Signs Vital Signs Date Time Temp Pulse Resp B/P (MAP) Pulse Ox O2 Delivery O2 Flow Rate FiO2 11/30/21 09:43 Room Air 11/30/21 07:00 97.7 69 18 124/73 (90) 100 97.7 Physical Exam PHYSICAL EXAM GENERAL: Alert, oriented gentleman, not in distress. HEENT: Both pupils are round and reacting. No conjunctival lesion. No lesion in the mouth. NECK: Supple. LUNGS: Clear. HEART: S1, S2, regular. ABDOMEN: Mildly distended, continues to have redness and induration present on the left side of the abdomen, more localized, tender, bowel sounds present Now has drain in place with bloody drainage induration on the left groin and lower abdomen. Wound is clean. Deep. EXTREMITIES: Left lower extremity redness, swelling present more on the medial aspect of the thigh and lower leg improved SKIN: No generalized rash except for above his scrotum is unremarkable. His post-surgical dressing was not opened. ON CALL PHARMACY TECHNICIAN alert oriented x3,grossly nonfocal Psych calm cooperative Right IJ clean Labs Micro Microbiology 11/27/21 Gram Stain - Final, Resulted 11/27/21 Aerobic and Anaerobic Culture - Preliminary, Resulted 11/16/21 Gram Stain - Final, Complete 11/16/21 Aerobic and Anaerobic Culture - Final, Complete 11/16/21 Antimicrobic Susceptibility - Final, Complete 11/16/21 Blood Culture - Final, Complete NO GROWTH AFTER 5 DAYS 11/16/21 Urine Culture - Final, Complete Objective Assessment 1. Left thigh and groin abscess, Status post Incision and Drainage. Cultures positive for E coli, Bacteroides,Parvimonas 2. Lactic acidosis/sepsis. Improved 3. Leukocytosis. Improved 4. Fever. Improved 5. Hypotension, requiring vasopressor support. Improved 6. Mild acute kidney injury. 7. Thrombocytopenia Plan Plan of Care Continue Zosyn, Drain in place Gen surgery following Wound care as directed, still has very large left groin wound with induration Continue supportive care. Follow the cultures DC IJ Discussed with nursing staff Discussed with KENDY Quiros MD Nov 30, 2021 10:05
[2021-11-30 11:00] VITALS: BP 112/72
[2021-11-30] MEDS: oxyCODONE/APAP 5/325 1 TAB TABLET PO PRN (12:08)
[2021-11-30 15:00] VITALS: BP 103/63
--- NOTE | 2021-11-30 15:19 | PDOC ---
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 coli Severe hypokalemia 2.9 (11/17-11/18) Possible necrotic fasciitis Acute electrolyte derangement due to volume depletion Lactic acidosis FROY due to vasomotor motor nephropathy Moderate protein malnutrition Lactic acidosis Fevers Hypotension FROY History of Present Illness History of Present Illness 11/30 Patient evaluated examined at bedside. He was resting in bed did not appear in any distress. Continuing antibiotics. Pain appears to be controlled. Plan of care discussed with bedside RN. 11/29 he complaints of pain, did not want wound repacked will increae IV pain meds to 100 from 50 follow 11/28/2021 some marked induration near drain leg are almost completely clear, seen in rrom with RN and ID consult pt condtion reviewed 11/27 No acute events overnight. Patient seen examined bedside. Patient tolerated wound care dressings and IV antibiotics. Left flank fluctuance and if erythema remains present and ultrasound was obtained showing a complex fluid collection. Surgery will consult IR for possible drainage. Patient's chart, labs, images were reviewed and discussed with RN 36-year-old male presents with history of a "boil on his buttock for the past 2 weeks and states that he scratched and popped it a while ago. Endorses chills and fevers and extreme pain in his left thigh. Denies any chest pain, shortness of breath, abdominal pain, diarrhea, dysuria or bloody diarrhea. No relative past medical history of diabetes or hypertension. Former smoker but quit a few years ago. Vitals/I&O Vitals/I&O: Vital Signs Date Time Temp Pulse Resp B/P (MAP) Pulse Ox O2 Delivery O2 Flow Rate FiO2 11/30/21 12:38 Room Air 11/30/21 11:00 97.9 58 18 112/72 (85) 98 97.9 11/30/21 08:00 97.0 I & O 11/29/21 11/29/21 11/30/21 15:00 23:00 07:00 Output Total 2290 ml 1250 ml Balance -2290 ml -1250 ml Physical Exam Physical Exam: GENERAL: Alert, oriented gentleman, not in distress. HEENT: Both pupils are round and reacting. No conjunctival lesion. No lesion in the mouth. NECK: Supple. LUNGS: Clear. HEART: S1, S2, regular. ABDOMEN: Mildly distended, continues to have redness and induration present on the left side of the abdomen, more localized, tender, bowel sounds present Now has drain in place with bloody drainage induration on the left groin and lower abdomen. Wound is clean. Deep. EXTREMITIES: Left lower extremity redness, swelling present more on the medial aspect of the thigh and lower leg improved SKIN: No generalized rash except for above his scrotum is unremarkable. His post-surgical dressing was not opened. SUPERVISOR FUR DRESSING alert oriented x3,grossly nonfocal Psych calm cooperative Right IJ clean General: Alert, Cooperative Heart: Regular rate, No murmurs Lungs: Clear Abdomen: Soft, Other (less flank erythema) Extremities: No cyanosis, Other (Cellulitis on the left thigh appears to be resolving perhaps 5 or 10%) Skin: Other (left flank erythema improving, dressing in place to wound ) Assessment and Plan Assessmemt and Plan Problems Medical Problems: (1) Elevated LFTs Status: Acute (2) Fourniers gangrene Status: Acute (3) Hyperbilirubinemia Status: Acute (4) Sepsis Status: Acute (5) Septic shock Status: Acute Comment Review of Relevant I have reviewed the following items fito (where applicable) has been applied. Justifications for Admission Other Justification Sepsis with left thigh abscess LILA DENT MD Nov 30, 2021 15:19
[2021-11-30 19:00] VITALS: BP 157/79
[2021-11-30] MEDS: ENOXAPARIN 40 MG/0.4 ML SYRINGE. SQ SCH (19:27)
[2021-11-30 23:00] VITALS: BP 107/66
[2021-12-01] MEDS: PIPERACILLIN/TAZOBACTAM 3.375 GM in IV NORMAL SALINE 50ML 50 ML IV SCH ×4 (00:15→17:23)
[2021-12-01 03:00] VITALS: BP 113/76
[2021-12-01] MEDS: oxyCODONE/APAP 5/325 1 TAB TABLET PO PRN ×2 (03:25→09:26)
[2021-12-01 07:15] VITALS: BP 116/68
--- NOTE | 2021-12-01 08:19 | PDOC ---
Infectious Disease Note Subjective Subjective Patient feels the same Some better ROS ROS No nausea vomiting diarrhea Vital Sign Vital Signs Vital Signs Date Time Temp Pulse Resp B/P (MAP) Pulse Ox O2 Delivery O2 Flow Rate FiO2 12/01/21 07:47 Room Air 12/01/21 07:15 97.8 88 16 116/68 (84) 97 97.8 11/30/21 08:00 97.0 Physical Exam PHYSICAL EXAM GENERAL: Alert, oriented gentleman, not in distress. HEENT: Both pupils are round and reacting. No conjunctival lesion. No lesion in the mouth. NECK: Supple. LUNGS: Clear. HEART: S1, S2, regular. ABDOMEN: Mildly distended, continues to have redness and induration present on the left side of the abdomen, more localized, tender, bowel sounds present Now has drain in place with bloody drainage induration on the left groin and lower abdomen. Wound is clean. Deep. EXTREMITIES: Left lower extremity redness, swelling present more on the medial aspect of the thigh and lower leg improved SKIN: No generalized rash except for above his scrotum is unremarkable. His post-surgical dressing was not opened. EQUAL OPPORTUNITY ASSISTANT alert oriented x3,grossly nonfocal Psych calm cooperative Right IJ clean Labs Micro GRAM STAIN Final Final NO ORGANISMS SEEN. SQUAMOUS EPI CELL:NOT APPLICABLE PMN (WBCs):MANY ANAEROBIC-AEROBIC CULTURE Preliminary Preliminary RARE GRAM NEGATIVE RODS on 11/29/21 at 0912 FINAL ID= [ESCHERICHIA COLI] FINAL ID= [ESCHERICHIA COLI ESBL] ESCHERICHIA COLI ESCHERICHIA COLI ESBL ANTIMICROBIAL SUSCEPTIBILITY Preliminary Comment Comment NEG KIM 56 ESCHERICHIA COLI ANTIBIOTIC RESULT INTERPRETATION AMPICILLIN/SULBACTAM 16/8 I AMIKACIN <=16 S AMPICILLIN >16 R AMOXICILLIN/K CLAVULANATE <=8/4 S AZTREONAM <=4 S CEFTRIAXONE <=1 S CEFTAZIDIME <=1 S CEFOTAXIME <=2 S CEFOXITIN <=8 S CEFAZOLIN <=2 S CIPROFLOXACIN <=0.25 S CEFEPIME <=2 S CEFUROXIME <=4 S CEFTAZIDIME/AVIBACTAM <=4 S ERTAPENEM <=0.5 S GENTAMICIN <=2 S RUN DATE: 12/01/21 [facility] *LIVE* PAGE 2 RUN TIME: 0943 Specimen Inquiry SPEC: [id number] PATIENT: REENA LOPEZ [id number] (Continued) ------ ------ Procedure Result CONTINUED ON NEXT PAGE RUN DATE: 12/01/21 [facility] *LIVE* PAGE 3 RUN TIME: 0943 Specimen Inquiry SPEC: [id number] PATIENT: REENA LOPEZ [id number] (Continued) Procedure Result ANTIMICROBIAL SUSCEPTIBILITY Preliminary (continued) LEVOFLOXACIN <=0.5 S MEROPENEM <=1 S PIPERACILLIN/TAZOBACTAM <=8 S TRIMETHOPRIM/SULFAMETHOXAZOLE <=0.5/9.5 S TETRACYCLINE <=4 S TOBRAMYCIN <=2 S NEG KIM 56 ESCHERICHIA COLI ESBL ANTIBIOTIC RESULT INTERPRETATION AMPICILLIN/SULBACTAM 8/4 S AMIKACIN <=16 S AMPICILLIN >16 R* AMOXICILLIN/K CLAVULANATE <=8/4 S AZTREONAM >16 ESBL CEFTRIAXONE >32 ESBL CEFTAZIDIME 16 ESBL CEFOTAXIME-ESBL >1 ESBL CEFOTAXIME >32 ESBL CEFOXITIN <=8 S CEFAZOLIN >16 R* CIPROFLOXACIN <=0.25 S CEFEPIME 16 R* CEFUROXIME >16 R* CEFTAZIDIME/AVIBACTAM <=4 S ERTAPENEM <=0.5 S GENTAMICIN <=2 S LEVOFLOXACIN <=0.5 S MEROPENEM <=1 S PIPERACILLIN/TAZOBACTAM <=8 S TRIMETHOPRIM/SULFAMETHOXAZOLE <=0.5/9.5 S TETRACYCLINE <=4 S TOBRAMYCIN <=2 S Unless otherwise specified, Testing Performed by: [address] [address] For Inquires, the Physician may contact the Microbiology department at [phone] Objective Assessment 1. Left thigh and groin abscess, Status post Incision and Drainage. Cultures positive for E coli, Bacteroides,Parvimonas 2. Lactic acidosis/sepsis. Improved 3. Leukocytosis. Improved 4. Fever. Improved 5. Hypotension, requiring vasopressor support. Improved 6. Mild acute kidney injury. 7. Thrombocytopenia Plan Plan of Care Continue Zosyn, Drain in place Gen surgery following Wound care as directed, still has very large left groin wound with induration Continue supportive care. Follow the cultures DC IJ Discussed with nursing staff Discussed with KENDY Quiros MD Dec 01, 2021 08:19
--- NOTE | 2021-12-01 08:46 | PDOC ---
SURGICAL PROGRESS NOTE DATE: 12/01/21 TIME: 08:44 Subjective resting, no current complaints Vital Signs Vital Signs Date Time Temp Pulse Resp B/P (MAP) Pulse Ox O2 Delivery O2 Flow Rate FiO2 12/01/21 07:47 Room Air 12/01/21 07:15 97.8 88 16 116/68 (84) 97 97.8 11/30/21 08:00 97.0 I&O Intake and Output 12/01/21 07:00 Intake Total 800 ml Output Total 2335 ml Balance -1535 ml Intake Oral 800 ml Output Urine Total 2250 ml Drainage Total 85 ml General: Alert, Cooperative Abdomen: Soft, Other (drain bloody ) Skin: Other (wound with packing in place) Problem List Problems Medical Problems: (1) Elevated LFTs Status: Acute (2) Fourniers gangrene Status: Acute (3) Hyperbilirubinemia Status: Acute (4) Sepsis Status: Acute (5) Septic shock Status: Acute Assessment/Plan d/w ID-concern for ecoli growth in drain, they are planning repeat ct Justicifation of Admission Dx: Justifications for Admission: Justification of Admission Dx: Yes BERNARDO BLANCAS INSTRUCTIONAL FACILITATOR Dec 01, 2021 08:46
[2021-12-01] MEDS: MULTIVITAMIN with MINERAL TABLET. PO SCH (09:25)
[2021-12-01] MEDS: LACTOBACILLUS RHAMNOSUS GG 1 CAPSULE. PO SCH ×2 (09:25→20:17)
--- NOTE | 2021-12-01 10:35 | NUR ---
SW following. Discussed with RN, pt from home, room air, regular diet, COVID-19 negative. Pt has EMMA drain, ibrahim, IV abx, wound care. Med Assist following for self pay status. Pt will discharge home when medically stable. SW will continue to follow.
[2021-12-01 10:53] VITALS: BP 104/74
[2021-12-01] MEDS: IV NORMAL SALINE 1000ML BAG 1,000 ML IV SCH ×2 (11:52→20:17)
--- NOTE | 2021-12-01 14:31 | PDOC ---
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 coli Severe hypokalemia 2.9 (11/17-11/18) Possible necrotic fasciitis Acute electrolyte derangement due to volume depletion Lactic acidosis FROY due to vasomotor motor nephropathy Moderate protein malnutrition Lactic acidosis Fevers Hypotension FROY History of Present Illness History of Present Illness 12/01: Seen bedside. Drain with significant serosanguineous drainage. Able to get up and have a BM on the commode. Left thigh and groin abscess, Status post Incision and Drainage 11/16/21. Cultures positive for E coli, Bacteroides,Parvimonas 11/30 Patient evaluated examined at bedside. He was resting in bed did not appear in any distress. Continuing antibiotics. Pain appears to be controlled. Plan of care discussed with bedside RN. 11/29 he complaints of pain, did not want wound repacked will increae IV pain meds to 100 from 50 follow 11/28/2021 some marked induration near drain leg are almost completely clear, seen in rrom with RN and ID consult pt condtion reviewed 11/27 No acute events overnight. Patient seen examined bedside. Patient tolerated wound care dressings and IV antibiotics. Left flank fluctuance and if erythema remains present and ultrasound was obtained showing a complex fluid collection. Surgery will consult IR for possible drainage. Patient's chart, labs, images were reviewed and discussed with RN 36-year-old male presents with history of a "boil on his buttock for the past 2 weeks and states that he scratched and popped it a while ago. Endorses chills and fevers and extreme pain in his left thigh. Denies any chest pain, shortness of breath, abdominal pain, diarrhea, dysuria or bloody diarrhea. No relative past medical history of diabetes or hypertension. Former smoker but quit a few years ago. Vitals/I&O Vitals/I&O: Vital Signs Date Time Temp Pulse Resp B/P (MAP) Pulse Ox O2 Delivery O2 Flow Rate FiO2 12/01/21 10:53 98.5 81 18 104/74 (84) 96 Room Air 98.5 11/30/21 08:00 97.0 I & O 11/30/21 11/30/21 12/01/21 15:00 23:00 07:00 Intake Total 800 ml Output Total 910 ml 1425 ml Balance -110 ml -1425 ml Physical Exam Physical Exam: GENERAL: Alert, oriented gentleman, not in distress. HEENT: Both pupils are round and reacting. No conjunctival lesion. No lesion in the mouth. NECK: Supple. LUNGS: Clear. HEART: S1, S2, regular. ABDOMEN: Mildly distended, continues to have redness and induration present on the left side of the abdomen, more localized, tender, bowel sounds present Now has drain in place with bloody drainage induration on the left groin and lower abdomen. Wound is clean. Deep. EXTREMITIES: Left lower extremity redness, swelling present more on the medial aspect of the thigh and lower leg improved SKIN: No generalized rash except for above his scrotum is unremarkable. His post-surgical dressing was not opened. DUKEY RIDER alert oriented x3,grossly nonfocal Psych calm cooperative Right IJ clean General: Alert, Cooperative Heart: Regular rate, No murmurs Lungs: Clear Abdomen: Soft, Other (drain bloody ) Extremities: No cyanosis, Other (Cellulitis on the left thigh appears to be resolving perhaps 5 or 10%) Skin: Other (wound with packing in place) Assessment and Plan Assessmemt and Plan Problems Medical Problems: (1) Elevated LFTs Status: Acute (2) Fourniers gangrene Status: Acute (3) Hyperbilirubinemia Status: Acute (4) Sepsis Status: Acute (5) Septic shock Status: Acute Comment Review of Relevant I have reviewed the following items fito (where applicable) has been applied. Justifications for Admission Other Justification Sepsis with left thigh abscess LILA ARGUETA MD Dec 01, 2021 14:31
[2021-12-01 15:13] VITALS: BP 110/72
[2021-12-01] MEDS: ENOXAPARIN 40 MG/0.4 ML SYRINGE. SQ SCH (17:24)
[2021-12-01 19:00] VITALS: BP 114/67
[2021-12-01 23:00] VITALS: BP 104/61
[2021-12-02] MEDS: PIPERACILLIN/TAZOBACTAM 3.375 GM in IV NORMAL SALINE 50ML 50 ML IV SCH ×2 (00:10→05:17)
[2021-12-02 03:00] VITALS: BP 142/79
[2021-12-02] MEDS: IV NORMAL SALINE 1000ML BAG 1,000 ML IV SCH ×2 (05:17→16:58)
[2021-12-02 07:15] VITALS: BP 109/70
[2021-12-02 08:11] LABS: BASO % 0 % (0-3); EOS # 0.1 x10^3/uL (0.0-0.7); EOS % 1 % (0-3); HEMATOCRIT 32.1 % (39.0-53.0); HEMOGLOBIN 11.1 g/dL (13.0-17.5); LYMPH # 1.4 x10^3/uL (1.0-4.8); LYMPH % 22 % (24-48); MEAN CORPUSCULAR HEMOGLOBIN 32 pg (25-35); MEAN CORPUSCULAR HGB CONC 35 g/dL (31-37); MEAN CORPUSCULAR VOLUME 92 fL (79-100); MONO # 0.4 x10^3/uL (0.0-1.1); MONO % 6 % (0-9); NEUT # 4.7 x10^3/uL (1.8-7.7); NEUT % 71 % (31-73); PLATELET COUNT 439 x10^3/uL (140-400); RED BLOOD COUNT 3.48 x10^6/uL (4.30-5.70); WHITE BLOOD COUNT 6.7 x10^3/uL (4.0-11.0)
--- NOTE | 2021-12-02 08:18 | PDOC ---
Infectious Disease Note Subjective Subjective Patient feels the same Some better ROS ROS no n/v/d/sob Vital Sign Vital Signs Vital Signs Date Time Temp Pulse Resp B/P (MAP) Pulse Ox O2 Delivery O2 Flow Rate FiO2 12/02/21 07:15 98.4 67 20 109/70 (83) 98 Room Air 98.4 Physical Exam PHYSICAL EXAM GENERAL: Alert, oriented gentleman, not in distress. HEENT: Both pupils are round and reacting. No conjunctival lesion. No lesion in the mouth. NECK: Supple. LUNGS: Clear. HEART: S1, S2, regular. ABDOMEN: Mildly distended, continues to have redness and induration present on the left side of the abdomen, more localized, tender, bowel sounds present Now has drain in place with bloody drainage induration on the left groin and lower abdomen. Wound is clean. Deep. EXTREMITIES: Left lower extremity redness, swelling present more on the medial aspect of the thigh and lower leg improved SKIN: No generalized rash except for above his scrotum is unremarkable. His post-surgical dressing was not opened. SCALP TREATMENT OPERATOR alert oriented x3,grossly nonfocal Psych calm cooperative Right IJ clean Labs Micro Microbiology 11/27/21 Gram Stain - Final, Resulted 11/27/21 Aerobic and Anaerobic Culture - Preliminary, Resulted 11/16/21 Gram Stain - Final, Complete 11/16/21 Aerobic and Anaerobic Culture - Final, Complete 11/16/21 Antimicrobic Susceptibility - Final, Complete 11/16/21 Blood Culture - Final, Complete NO GROWTH AFTER 5 DAYS 11/16/21 Urine Culture - Final, Complete Objective Assessment 1. Left thigh and groin abscess, Status post Incision and Drainage. Cultures positive for E coli, Bacteroides,Parvimonas 2. Lactic acidosis/sepsis. Improved 3. Leukocytosis. Improved 4. Fever. Improved 5. Hypotension, requiring vasopressor support. Improved 6. Mild acute kidney injury. 7. Thrombocytopenia Plan Plan of Care Continue Zosyn, Drain in place Gen surgery following Wound care as directed, still has very large left groin wound with induration Continue supportive care. Follow the cultures CT abdomen pelvis today Discussed with nursing staff Discussed with KENDY Quiros MD Dec 02, 2021 08:18
[2021-12-02 08:39] LABS: ALBUMIN 2.7 g/dL (3.4-5.0); TOTAL PROTEIN 7.1 g/dL (6.4-8.2)
[2021-12-02 08:40] LABS: ALBUMIN/GLOBULIN RATIO 0.6 (1.0-1.7); CALCIUM 8.3 mg/dL (8.5-10.1); CREATININE 0.7 mg/dL (0.7-1.3); GFR 126.9; POTASSIUM 3.9 mmol/L (3.5-5.1); TOTAL BILIRUBIN 0.6 mg/dL (0.2-1.0)
[2021-12-02] MEDS: MULTIVITAMIN with MINERAL TABLET. PO SCH (08:54)
[2021-12-02] MEDS: LACTOBACILLUS RHAMNOSUS GG 1 CAPSULE. PO SCH ×2 (08:54→20:18)
[2021-12-02] MEDS: MEROPENEM 500 MG in IV NORMAL SALINE 50ML 50 ML IV SCH ×3 (08:55→22:00)
[2021-12-02] MEDS ORDERED: IOHEXOL 300 MG/ML 100ML VIAL. IV ONE (09:15)
[2021-12-02] MEDS ORDERED: IOHEXOL 240 MG/ML 50ML VIAL. PO ONE (09:15)
[2021-12-02] MEDS ORDERED: CONTRAST GIVEN. MC PRN (09:15)
[2021-12-02 11:01] VITALS: BP 109/61
--- NOTE | 2021-12-02 11:40 | PDOC ---
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 coli Severe hypokalemia 2.9 (11/17-11/18) Possible necrotic fasciitis Acute electrolyte derangement due to volume depletion Lactic acidosis FROY due to vasomotor motor nephropathy Moderate protein malnutrition Lactic acidosis Fevers Hypotension FROY 37 MIN PT exam, chart review, > 50% of time spent with exam, chart review, pt care coordination. History of Present Illness History of Present Illness 12/02: Seen bedside after CT abdomen pelvis. Read pending. Labs stable. Still with pain significant drainage. Dressing on drain changed bedside. 12/01: Seen bedside. Drain with significant serosanguineous drainage. Able to get up and have a BM on the commode. Left thigh and groin abscess, Status post Incision and Drainage 11/16/21. Cultures positive for E coli, Bacteroides,Parvimonas 11/30 Patient evaluated examined at bedside. He was resting in bed did not appear in any distress. Continuing antibiotics. Pain appears to be controlled. Plan of care discussed with bedside RN. 11/29 he complaints of pain, did not want wound repacked will increae IV pain meds to 100 from 50 follow 11/28/2021 some marked induration near drain leg are almost completely clear, seen in rrom with RN and ID consult pt condtion reviewed 11/27 No acute events overnight. Patient seen examined bedside. Patient tolerated wound care dressings and IV antibiotics. Left flank fluctuance and if erythema remains present and ultrasound was obtained showing a complex fluid collection. Surgery will consult IR for possible drainage. Patient's chart, labs, images were reviewed and discussed with RN 36-year-old male presents with history of a "boil on his buttock for the past 2 weeks and states that he scratched and popped it a while ago. Endorses chills and fevers and extreme pain in his left thigh. Denies any chest pain, shortness of breath, abdominal pain, diarrhea, dysuria or bloody diarrhea. No relative past medical history of diabetes or hypertension. Former smoker but quit a few years ago. Vitals/I&O Vitals/I&O: Vital Signs Date Time Temp Pulse Resp B/P (MAP) Pulse Ox O2 Delivery O2 Flow Rate FiO2 12/02/21 11:01 98.6 69 18 109/61 (77) 99 Room Air 98.6 I & O 12/01/21 12/01/21 12/02/21 15:00 23:00 07:00 Intake Total 390 ml 800 ml Output Total 800 ml 30 ml Balance 390 ml 0 ml -30 ml Physical Exam Physical Exam: GENERAL: Alert, oriented gentleman, not in distress. HEENT: Both pupils are round and reacting. No conjunctival lesion. No lesion in the mouth. NECK: Supple. LUNGS: Clear. HEART: S1, S2, regular. ABDOMEN: Mildly distended, continues to have redness and induration present on the left side of the abdomen, more localized, tender, bowel sounds present Now has drain in place with bloody drainage induration on the left groin and lower abdomen. Wound is clean. Deep. EXTREMITIES: Left lower extremity redness, swelling present more on the medial aspect of the thigh and lower leg improved SKIN: No generalized rash except for above his scrotum is unremarkable. His pos t-surgical dressing was not opened. PERSONALIZATION SPECIALIST alert oriented x3,grossly nonfocal Psych calm cooperative Right IJ clean General: Alert, Cooperative Heart: Regular rate, No murmurs Lungs: Clear Abdomen: Soft, Other (drain bloody ) Extremities: No cyanosis, Other (Cellulitis on the left thigh appears to be resolving perhaps 5 or 10%) Skin: Other (wound with packing in place) Labs Labs: Laboratory Tests Test 12/02/21 07:15 White Blood Count 6.7 x10^3/uL (4.0-11.0) Red Blood Count 3.48 x10^6/uL (4.30-5.70) Hemoglobin 11.1 g/dL (13.0-17.5) Hematocrit 32.1 % (39.0-53.0) Mean Corpuscular Volume 92 fL (79-100) Mean Corpuscular Hemoglobin 32 pg (25-35) Mean Corpuscular Hemoglobin Concent 35 g/dL (31-37) Red Cell Distribution Width 13.0 % (11.5-14.5) Platelet Count 439 x10^3/uL (140-400) Neutrophils (%) (Auto) 71 % (31-73) Lymphocytes (%) (Auto) 22 % (24-48) Monocytes (%) (Auto) 6 % (0-9) Eosinophils (%) (Auto) 1 % (0-3) Basophils (%) (Auto) 0 % (0-3) Neutrophils # (Auto) 4.7 x10^3/uL (1.8-7.7) Lymphocytes # (Auto) 1.4 x10^3/uL (1.0-4.8) Monocytes # (Auto) 0.4 x10^3/uL (0.0-1.1) Eosinophils # (Auto) 0.1 x10^3/uL (0.0-0.7) Basophils # (Auto) 0.0 x10^3/uL (0.0-0.2) Sodium Level 142 mmol/L (136-145) Potassium Level 3.9 mmol/L (3.5-5.1) Chloride Level 107 mmol/L (98-107) Carbon Dioxide Level 24 mmol/L (21-32) Anion Gap 11 (6-14) Blood Urea Nitrogen 10 mg/dL (8-26) Creatinine 0.7 mg/dL (0.7-1.3) Estimated GFR (Cockcroft-Gault) 126.9 BUN/Creatinine Ratio 14 (6-20) Glucose Level 88 mg/dL (70-99) Calcium Level 8.3 mg/dL (8.5-10.1) Total Bilirubin 0.6 mg/dL (0.2-1.0) Aspartate Amino Transf (AST/SGOT) 20 U/L (15-37) Alanine Aminotransferase (ALT/SGPT) 28 U/L (16-63) Alkaline Phosphatase 129 U/L (46-116) Total Protein 7.1 g/dL (6.4-8.2) Albumin 2.7 g/dL (3.4-5.0) Albumin/Globulin Ratio 0.6 (1.0-1.7) Assessment and Plan Assessmemt and Plan Problems Medical Problems: (1) Elevated LFTs Status: Acute (2) Fourniers gangrene Status: Acute (3) Hyperbilirubinemia Status: Acute (4) Sepsis Status: Acute (5) Septic shock Status: Acute Comment Review of Relevant I have reviewed the following items fito (where applicable) has been applied. Medications: Current Medications Medications (Trade) Dose Ordered Sig/Maria De Jesus Route PRN Reason Start Time Stop Time Status Last Admin Dose Admin Meropenem 500 mg/ Sodium Chloride 50 ml @ 100 mls/hr Q8HRS IV 12/02/21 09:00 12/02/21 08:55 Iohexol (Omnipaque 240 Mg/ml) 50 ml 1X ONCE PO 12/02/21 09:15 12/02/21 09:16 DC 12/02/21 09:15 Iohexol (Omnipaque 300 Mg/ml) 75 ml 1X ONCE IV 12/02/21 09:15 12/02/21 09:16 DC 12/02/21 09:15 Justifications for Admission Other Justification Sepsis with left thigh abscess LILA ARGUETA MD Dec 02, 2021 11:40
--- NOTE | 2021-12-02 12:17 | PDOC ---
SURGICAL PROGRESS NOTE DATE: 12/02/21 TIME: 12:16 Subjective doing ok some pain back from CT Vital Signs Vital Signs Date Time Temp Pulse Resp B/P (MAP) Pulse Ox O2 Delivery O2 Flow Rate FiO2 12/02/21 11:01 98.6 69 18 109/61 (77) 99 Room Air 98.6 I&O Intake and Output 12/02/21 07:00 Intake Total 1190 ml Output Total 830 ml Balance 360 ml Intake Oral 1190 ml Output Urine Total 800 ml Drainage Total 30 ml # Voids 2 General: Alert, Cooperative Abdomen: Soft, Other (drain bloody, wound viewed) Labs Laboratory Tests Test 12/02/21 07:15 White Blood Count 6.7 x10^3/uL (4.0-11.0) Red Blood Count 3.48 x10^6/uL (4.30-5.70) Hemoglobin 11.1 g/dL (13.0-17.5) Hematocrit 32.1 % (39.0-53.0) Mean Corpuscular Volume 92 fL (79-100) Mean Corpuscular Hemoglobin 32 pg (25-35) Mean Corpuscular Hemoglobin Concent 35 g/dL (31-37) Red Cell Distribution Width 13.0 % (11.5-14.5) Platelet Count 439 x10^3/uL (140-400) Neutrophils (%) (Auto) 71 % (31-73) Lymphocytes (%) (Auto) 22 % (24-48) Monocytes (%) (Auto) 6 % (0-9) Eosinophils (%) (Auto) 1 % (0-3) Basophils (%) (Auto) 0 % (0-3) Neutrophils # (Auto) 4.7 x10^3/uL (1.8-7.7) Lymphocytes # (Auto) 1.4 x10^3/uL (1.0-4.8) Monocytes # (Auto) 0.4 x10^3/uL (0.0-1.1) Eosinophils # (Auto) 0.1 x10^3/uL (0.0-0.7) Basophils # (Auto) 0.0 x10^3/uL (0.0-0.2) Sodium Level 142 mmol/L (136-145) Potassium Level 3.9 mmol/L (3.5-5.1) Chloride Level 107 mmol/L (98-107) Carbon Dioxide Level 24 mmol/L (21-32) Anion Gap 11 (6-14) Blood Urea Nitrogen 10 mg/dL (8-26) Creatinine 0.7 mg/dL (0.7-1.3) Estimated GFR (Cockcroft-Gault) 126.9 BUN/Creatinine Ratio 14 (6-20) Glucose Level 88 mg/dL (70-99) Calcium Level 8.3 mg/dL (8.5-10.1) Total Bilirubin 0.6 mg/dL (0.2-1.0) Aspartate Amino Transf (AST/SGOT) 20 U/L (15-37) Alanine Aminotransferase (ALT/SGPT) 28 U/L (16-63) Alkaline Phosphatase 129 U/L (46-116) Total Protein 7.1 g/dL (6.4-8.2) Albumin 2.7 g/dL (3.4-5.0) Albumin/Globulin Ratio 0.6 (1.0-1.7) Laboratory Tests Test 12/02/21 07:15 White Blood Count 6.7 x10^3/uL (4.0-11.0) Red Blood Count 3.48 x10^6/uL (4.30-5.70) Hemoglobin 11.1 g/dL (13.0-17.5) Hematocrit 32.1 % (39.0-53.0) Mean Corpuscular Volume 92 fL (79-100) Mean Corpuscular Hemoglobin 32 pg (25-35) Mean Corpuscular Hemoglobin Concent 35 g/dL (31-37) Red Cell Distribution Width 13.0 % (11.5-14.5) Platelet Count 439 x10^3/uL (140-400) Neutrophils (%) (Auto) 71 % (31-73) Lymphocytes (%) (Auto) 22 % (24-48) Monocytes (%) (Auto) 6 % (0-9) Eosinophils (%) (Auto) 1 % (0-3) Basophils (%) (Auto) 0 % (0-3) Neutrophils # (Auto) 4.7 x10^3/uL (1.8-7.7) Lymphocytes # (Auto) 1.4 x10^3/uL (1.0-4.8) Monocytes # (Auto) 0.4 x10^3/uL (0.0-1.1) Eosinophils # (Auto) 0.1 x10^3/uL (0.0-0.7) Basophils # (Auto) 0.0 x10^3/uL (0.0-0.2) Sodium Level 142 mmol/L (136-145) Potassium Level 3.9 mmol/L (3.5-5.1) Chloride Level 107 mmol/L (98-107) Carbon Dioxide Level 24 mmol/L (21-32) Anion Gap 11 (6-14) Blood Urea Nitrogen 10 mg/dL (8-26) Creatinine 0.7 mg/dL (0.7-1.3) Estimated GFR (Cockcroft-Gault) 126.9 BUN/Creatinine Ratio 14 (6-20) Glucose Level 88 mg/dL (70-99) Calcium Level 8.3 mg/dL (8.5-10.1) Total Bilirubin 0.6 mg/dL (0.2-1.0) Aspartate Amino Transf (AST/SGOT) 20 U/L (15-37) Alanine Aminotransferase (ALT/SGPT) 28 U/L (16-63) Alkaline Phosphatase 129 U/L (46-116) Total Protein 7.1 g/dL (6.4-8.2) Albumin 2.7 g/dL (3.4-5.0) Albumin/Globulin Ratio 0.6 (1.0-1.7) Problem List Problems Medical Problems: (1) Elevated LFTs Status: Acute (2) Fourniers gangrene Status: Acute (3) Hyperbilirubinemia Status: Acute (4) Sepsis Status: Acute (5) Septic shock Status: Acute Assessment/Plan wound care, drain will review CT results Justicifation of Admission Dx: Justifications for Admission: Justification of Admission Dx: Yes BERNARDO BLANCAS MEDICAL STAFF DIRECTOR Dec 02, 2021 12:17
[2021-12-02 15:03] VITALS: BP 106/70
--- NOTE | 2021-12-02 16:09 | RAD ---
EXAMINATION: CT chest, abdomen and pelvis with IV contrast. INDICATION:36 years, Male, follow-up abscess. TECHNIQUE: Axial CT images of the chest, abdomen and pelvis were obtained. Coronal and sagittal refor matted performed. COMPARISON: 11/22/2021. Exposure: One or more of the following individualized dose reduction techniques were utilized for thi s examination: 1. Automated exposure control 2. Adjustment of the mA and/or kV according to patient size 3. Use of iterative reconstruction technique. FINDINGS: CHEST: Visualized thyroid and esophagus are unremarkable. No lymphadenopathy in the chest by size criteria. Normal cardiac size with no pericardial effusion. Normal caliber thoracic aorta and pulmonary arterie s. Central airways are patent. No focal consolidation, pleural effusion or pneumothorax. Bibasilar subse gmental atelectasis. There is a 4 mm solid pulmonary nodule in the right lower lobe. ABDOMEN/PELVIS: Liver, gallbladder, spleen, pancreas, adrenal glands and kidneys are unremarkable. No bowel obstructi on. Nonspecific submucosal fat deposition in the right colon. Normal appendix. Normal caliber abdomin al aorta. No pneumoperitoneum or ascites. No abdominal lymphadenopathy by size criteria. Prominent le ft external iliac lymph nodes, likely reactive. Focus of gas in the urinary bladder, likely related t o recent instrumentation. Unremarkable prostate. MUSCULOSKELETAL STRUCTURES: Interval placement of percutaneous drain within the left lower abdominal wall collection. Markedly de creasing size of this collection with residual soft tissue thickening and possible trace amount of fl uid locule. It measures 6.2 x 2.1 cm, previously 8.4 x 2.1 cm. Interval improving subcutaneous fat st randing along the left upper thigh, left lower abdominal wall and groin region. No acute osseous proc ess. IMPRESSION: 1. Decreasing size of the left lower abdominal wall fluid collection status post drain placement, wit h residual soft tissue thickening and possible trace amount of fluid locule. 2. Sub-5 mm solid pulmonary nodule in the right lower lobe. High-risk patient, consider 12 months fol low-up with CT chest. Electronically signed by: Kimi Perry MD (12/02/2021 4:06 PM) [facility]
[2021-12-02] MEDS: ENOXAPARIN 40 MG/0.4 ML SYRINGE. SQ SCH (16:58)
[2021-12-02 19:59] VITALS: BP 104/67
[2021-12-03 03:55] VITALS: BP 110/66
[2021-12-03] MEDS: IV NORMAL SALINE 1000ML BAG 1,000 ML IV SCH (05:00)
[2021-12-03] MEDS: MEROPENEM 500 MG in IV NORMAL SALINE 50ML 50 ML IV SCH ×3 (05:51→21:33)
[2021-12-03 07:00] VITALS: BP 111/78
--- NOTE | 2021-12-03 08:12 | PDOC ---
Infectious Disease Note Subjective Subjective Patient feels better ROS ROS No nausea vomiting diarrhea chest pain shortness of breath Vital Sign Vital Signs Vital Signs Date Time Temp Pulse Resp B/P (MAP) Pulse Ox O2 Delivery O2 Flow Rate FiO2 12/03/21 07:38 Room Air 12/03/21 03:55 98.5 80 18 110/66 (81) 97 98.5 Physical Exam PHYSICAL EXAM GENERAL: Alert, oriented gentleman, not in distress. HEENT: Both pupils are round and reacting. No conjunctival lesion. No lesion in the mouth. NECK: Supple. LUNGS: Clear. HEART: S1, S2, regular. ABDOMEN: Mildly distended, continues to have redness and induration present on the left side of the abdomen, more localized, tender, bowel sounds present Now has drain in place with bloody drainage induration on the left groin and lower abdomen. Wound is clean. Deep. EXTREMITIES: Left lower extremity redness, swelling present more on the medial aspect of the thigh and lower leg improved SKIN: No generalized rash except for above his scrotum is unremarkable. His post-surgical dressing was not opened. [employer] alert oriented x3,grossly nonfocal Psych calm cooperative Right IJ clean Labs Micro GRAM STAIN Final Final NO ORGANISMS SEEN. SQUAMOUS EPI CELL:NOT APPLICABLE PMN (WBCs):MANY ANAEROBIC-AEROBIC CULTURE Final Final RARE GRAM NEGATIVE RODS on 11/29/21 at 0912 FINAL ID= [ESCHERICHIA COLI] FINAL ID= [ESCHERICHIA COLI ESBL] NO ANAEROBIC ORGANISMS ISOLATED on 12/03/21 at 0816 ESCHERICHIA COLI ESCHERICHIA COLI ESBL ANTIMICROBIAL SUSCEPTIBILITY Final Comment Comment NEG KIM 56 ESCHERICHIA COLI ANTIBIOTIC RESULT INTERPRETATION AMPICILLIN/SULBACTAM 16/8 I AMIKACIN <=16 S AMPICILLIN >16 R AMOXICILLIN/K CLAVULANATE <=8/4 S AZTREONAM <=4 S CEFTRIAXONE <=1 S CEFTAZIDIME <=1 S CEFOTAXIME <=2 S CEFOXITIN <=8 S CEFAZOLIN <=2 S CIPROFLOXACIN <=0.25 S CEFEPIME <=2 S CEFUROXIME <=4 S CEFTAZIDIME/AVIBACTAM <=4 S ERTAPENEM <=0.5 S RUN DATE: 12/03/21 [facility] *LIVE* PAGE 2 RUN TIME: 820 Specimen Inquiry SPEC: [id number] PATIENT: REENA LOPEZ [id number] ( Continued) Procedure Result CONTINUED ON NEXT PAGE RUN DATE: 12/03/21 [facility] *LIVE* PAGE 3 RUN TIME: 820 Specimen Inquiry SPEC: [id number] PATIENT: REENA LOPEZ [id number] (Continued) Procedure Result ANTIMICROBIAL SUSCEPTIBILITY Final (continued) GENTAMICIN <=2 S LEVOFLOXACIN <=0.5 S MEROPENEM <=1 S PIPERACILLIN/TAZOBACTAM <=8 S TRIMETHOPRIM/SULFAMETHOXAZOLE <=0.5/9.5 S TETRACYCLINE <=4 S TOBRAMYCIN <=2 S NEG KIM 56 ESCHERICHIA COLI ESBL ANTIBIOTIC RESULT INTERPRETATION AMPICILLIN/SULBACTAM 8/4 S AMIKACIN <=16 S AMPICILLIN >16 R* AMOXICILLIN/K CLAVULANATE <=8/4 S AZTREONAM >16 ESBL CEFTRIAXONE >32 ESBL CEFTAZIDIME 16 ESBL CEFOTAXIME-ESBL >1 ESBL CEFOTAXIME >32 ESBL CEFOXITIN <=8 S CEFAZOLIN >16 R* CIPROFLOXACIN <=0.25 S CEFEPIME 16 R* CEFUROXIME >16 R* CEFTAZIDIME/AVIBACTAM <=4 S ERTAPENEM <=0.5 S GENTAMICIN <=2 S LEVOFLOXACIN <=0.5 S MEROPENEM <=1 S PIPERACILLIN/TAZOBACTAM <=8 S TRIMETHOPRIM/SULFAMETHOXAZOLE <=0.5/9.5 S TETRACYCLINE <=4 S TOBRAMYCIN <=2 S Unless otherwise specified, Testing Performed by: [address] [id number] For Inquires, the Physician may contact the Microbiology department at [phone] END OF REPORT GRAM STAIN Final Final GRAM NEGATIVE RODS:MANY GRAM POSITIVE RODS:MANY GRAM POSITIVE COCCI:MANY SQUAMOUS EPI CELL:NONE SEEN PMN (WBCs):MODERATE Unless otherwise specified, Testing Performed by: [address] [address] For Inquires, the Physician may contact the Microbiology department at [phone] ANAEROBIC-AEROBIC CULTURE Final Final MIXED AEROBIC AND ANAEROBIC ESTEFANIA on 11/21/21 at 1140 INCLUDING: MANY [ESCHERICHIA COLI] on 11/18/21 at 0956 FEW [STREPTOCOCCUS ANGINOSUS] on 11/19/21 at 1052 MODERATE [BACTEROIDES FRAGILIS] on 11/19/21 at 1052 MANY [PARVIMONAS MICRA] on 11/19/21 at 1052 FEW PIGMENTED [PREVOTELLA/PORPHYROMONAS SP] on 11/20/21 at 0901 FEW [CLOSTRIDIUM PERFRINGENS] on 11/21/21 at 1140 ESCHERICHIA COLI UNIDENTIFIED ORGANISM STREPTOCOCCUS ANGINOSUS BACTEROIDES FRAGILIS PARVIMONAS MICRA UNIDENTIFIED ORGANISM CLOSTRIDIUM PERFRINGENS PREVOTELLA/PORPHYROMONAS SP ANTIMICROBIAL SUSCEPTIBILITY Final Comment CONTINUED ON NEXT PAGE RUN DATE: 11/22/21 [email or web address] *LIVE* PAGE 2 RUN TIME: 1124 Specimen Inquiry SPEC: [id number] PATIENT: REENA LOPEZ [id number] (Jeremi marcelino) Procedure Result ANTIMICROBIAL SUSCEPTIBILITY Final (continued) NEG KIM 56 ESCHERICHIA COLI ANTIBIOTIC RESULT INTERPRETATION AMPICILLIN/SULBACTAM <=4/2 S AMIKACIN <=16 S AMPICILLIN <=8 S AMOXICILLIN/K CLAVULANATE <=8/4 S AZTREONAM <=4 S CEFTRIAXONE <=1 S CEFTAZIDIME <=1 S CEFOTAXIME <=2 S CEFOXITIN <=8 S CEFAZOLIN <=2 S CIPROFLOXACIN <=0.25 S CEFEPIME <=2 S CEFUROXIME <=4 S CEFTAZIDIME/AVIBACTAM <=4 S ERTAPENEM <=0.5 S GENTAMICIN <=2 S LEVOFLOXACIN <=0.5 S MEROPENEM <=1 S PIPERACILLIN/TAZOBACTAM <=8 S TRIMETHOPRIM/SULFAMETHOXAZOLE <=0.5/9.5 S TETRACYCLINE <=4 S TOBRAMYCIN <=2 S Unless otherwise specified, Testing Performed by: [address] [id number] For Inquires, the Physician may contact the Microbiology department at [phone] END OF REPORT Objective Assessment 1. Left thigh and groin abscess, Status post Incision and Drainage. Cultures positive for E coli, Bacteroides,Parvimonas 2. Lactic acidosis/sepsis. Improved 3. Leukocytosis. Improved 4. Fever. Improved 5. Hypotension, requiring vasopressor support. Improved 6. Mild acute kidney injury. 7. Thrombocytopenia Plan Plan of Care Continue Zosyn, Drain in place Gen surgery following Wound care as directed, still has very large left groin wound with induration Continue supportive care. Follow the cultures CT abdomen pelvis noted reviewed with the radiologist Discussed with nursing staff Can be discharged on p.o. Augmentin and ciprofloxacin for 2 weeks KENDY SORIANO MD Dec 03, 2021 08:12
[2021-12-03] MEDS: MULTIVITAMIN with MINERAL TABLET. PO SCH (08:24)
[2021-12-03] MEDS: LACTOBACILLUS RHAMNOSUS GG 1 CAPSULE. PO SCH ×2 (08:24→19:44)
--- NOTE | 2021-12-03 09:47 | PDOC ---
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 coli Severe hypokalemia 2.9 (11/17-11/18) Possible necrotic fasciitis Acute electrolyte derangement due to volume depletion Lactic acidosis FROY due to vasomotor motor nephropathy Moderate protein malnutrition Lactic acidosis Fevers Hypotension FROY Constipation - will increase bowel regimen, scheduled 37 MIN PT exam, chart review, > 50% of time spent with exam, chart review, pt care coordination. History of Present Illness History of Present Illness 12/03: Seen bedside. Exquisite pain with trying to stand today. CT abdomen reviewed with abscess decreased in size to 6.1 x 2.1 cm from prior 8.1 x 2.1 cm. Still with voluminous drainage. Patient having difficulty accessing his own packing in his groin induration does look improved. He is not a bowel movement. Does not feel his pain is well controlled today is 8 out of 10 at the worst. No chest pain or shortness of breath 12/02: Seen bedside after CT abdomen pelvis. Read pending. Labs stable. Still with pain significant drainage. Dressing on drain changed bedside. 12/01: Seen bedside. Drain with significant serosanguineous drainage. Able to get up and have a BM on the commode. Left thigh and groin abscess, Status post Incision and Drainage 11/16/21. Cultur es positive for E coli, Bacteroides,Parvimonas 11/30: Patient evaluated examined at bedside. He was resting in bed did not appea r in any distress. Continuing antibiotics. Pain appears to be controlled. Plan of care discussed with bedside RN. 11/29 he complaints of pain, did not want wound repacked. Will increae IV pain meds to 100 from 50 11/28/2021 some marked induration near drain. leg are almost completely clear 11/27: No acute events overnight. Patient seen examined bedside. Patient tolerated wound care dressings and IV antibiotics. Left flank fluctuance and if erythema remains present and ultrasound was obtained showing a complex fluid collection. Surgery will consult IR for possible drainage. 36-year-old male presents with history of a "boil on his buttock for the past 2 weeks and states that he scratched and popped it a while ago. Endorses chills and fevers and extreme pain in his left thigh. Denies any chest pain, shortness of breath, abdominal pain, diarrhea, dysuria or bloody diarrhea. No relative past medical history of diabetes or hypertension. Former smoker but quit a few years ago. Is in town visiting from [place], [place]. Vitals/I&O Vitals/I&O: Vital Signs Date Time Temp Pulse Resp B/P (MAP) Pulse Ox O2 Delivery O2 Flow Rate FiO2 12/03/21 07:38 Room Air 12/03/21 07:00 98.6 66 16 111/78 (89) 99 98.6 I & O 12/02/21 12/02/21 12/03/21 14:59 22:59 06:59 Intake Total 480 ml Output Total 20 ml 10 ml Balance -20 ml 470 ml Physical Exam Physical Exam: GENERAL: Alert, oriented gentleman, not in distress. HEENT: Both pupils are round and reacting. No conjunctival lesion. No lesion in the mouth. NECK: Supple. LUNGS: Clear. HEART: S1, S2, regular. ABDOMEN: Mildly distended, continues to have redness and induration present on the left side of the abdomen, more localized, tender, bowel sounds present Now has drain in place with bloody drainage induration on the left groin and lower abdomen. Wound is clean. Deep. EXTREMITIES: Left lower extremity redness, swelling present more on the medial aspect of the thigh and lower leg improved SKIN: No generalized rash except for above his scrotum is unremarkable. His post-surgical dressing was not opened. DEGREASER alert oriented x3,grossly nonfocal Psych calm cooperative Right IJ clean General: Alert, Cooperative Heart: Regular rate, No murmurs Lungs: Clear Abdomen: Soft, Other (drain bloody, wound viewed) Extremities: No cyanosis, Other (Cellulitis on the left thigh appears to be resolving perhaps 5 or 10%) Skin: Other (wound with packing in place) Assessment and Plan Assessmemt and Plan Problems Medical Problems: (1) Elevated LFTs Status: Acute (2) Fourniers gangrene Status: Acute (3) Hyperbilirubinemia Status: Acute (4) Sepsis Status: Acute (5) Septic shock Status: Acute Comment Review of Relevant I have reviewed the following items fito (where applicable) has been applied. Justifications for Admission Other Justification Sepsis with left thigh abscess LILA ARGUETA MD Dec 03, 2021 09:47
--- NOTE | 2021-12-03 10:27 | NUR ---
SW following. Discussed with RN, pt from home, room air, regular diet. IV abx switched to PO. Pt will need outpatient wound care, SW awaiting frequency from Jerardo () to get administration approval. Med Assist following for self pay status. SW will continue to follow. Addendum: 12/03/21 at 1505 by AL KIM JUDY spoke with Jerome, pt is here from [place], [place], will stay a couple more days, be provided teaching on how to take care of his wound care and return to [place]. No SW needs at this time.
[2021-12-03 11:00] VITALS: BP 111/67
[2021-12-03] MEDS: POLYETHYLENE GLYCOL 3350 17 GM PACKET. PO SCH (14:46)
[2021-12-03 14:48] VITALS: BP 97/56
--- NOTE | 2021-12-03 14:54 | NUR ---
Wound Care Wound Type/Assessment: Follow up wound care for management of abscess to L medial thigh/groin s/p I&D. Wound pictured and measured (see detailed assessment). Wound base bright pink and smooth with some granulation and slough present. Small amount of thick, serosanguineous drainage present. Slight induration noted to periwound. LLQ of abdomen has 4x4 gauze and tegaderm covering drain tubing exit site. Area is saturated with light de la garza drainage and dried blood against skin. Pt c/o itchiness in this area. Dressing removed and skin cleansed with chloraprep. Induration, bruising to site, roughly golf ball sized; slowly oozing blood. Placed monster collagen over abdominal opening and covered with clean 4x4 and tegaderm dressing. Treatment Recommendations/Plan: L medial thigh/groin: Remove packing and cleanse cavity well with wound wash. Use 1/2" iodoform packing to depth of wound, including undermining. Deepest area of undermining is at 3:00, in the direction away from the groin; measures 6.5cm. Cover with ABD and tape. Change daily. Education provided: Pt will be discharging from the hospital and leaving to return home ([facility]), date TBA. He states he will be changing his own dressings, and is capable of doing so. Some question of moldovan interpretation, as his primary language is a micro- dialect. Pt instructed how to position his legs, cleansing of wound, changing dressing, nutrition requirements. Instructed to change his own dressings for the duration of his hospitalization under the supervision of and RN. Offloading surface/device: Pt is independent with mobility Recommended Referrals/Tests: Pt is self pay, but would benefit from an outpatient wound care service. Discharge Recommendations for dressings: As above. WC will follow up with patient and assist with dressing change on Wednesday12/05/21
[2021-12-03] MEDS: oxyCODONE/APAP 5/325 1 TAB TABLET PO PRN (15:31)
[2021-12-03] MEDS: ENOXAPARIN 40 MG/0.4 ML SYRINGE. SQ SCH (16:11)
[2021-12-03 19:00] VITALS: BP 102/71
[2021-12-03] MEDS: PSYLLIUM HUSK (SUGAR FREE) 1 PKT PACKET PO SCH (19:44)
[2021-12-03 22:45] VITALS: BP 101/57
[2021-12-04 03:15] VITALS: BP 110/68
[2021-12-04] MEDS: MEROPENEM 500 MG in IV NORMAL SALINE 50ML 50 ML IV SCH (05:58)
[2021-12-04 07:15] VITALS: BP 116/76
--- NOTE | 2021-12-04 08:21 | PDOC ---
SURGICAL PROGRESS NOTE DATE: 12/04/21 TIME: 08:20 Subjective no complaints plans for returning home wednesday Vital Signs Vital Signs Date Time Temp Pulse Resp B/P (MAP) Pulse Ox O2 Delivery O2 Flow Rate FiO2 12/04/21 07:15 97.8 67 20 116/76 (89) 96 Room Air 97.8 I&O Intake and Output 12/04/21 06:59 Intake Total 220 ml Output Total 15 ml Balance 205 ml Intake Oral 220 ml Drainage Total 15 ml General: Cooperative, No acute distress Abdomen: Soft, Other (drain bloody) Problem List Problems Medical Problems: (1) Elevated LFTs Status: Acute (2) Fourniers gangrene Status: Acute (3) Hyperbilirubinemia Status: Acute (4) Sepsis Status: Acute (5) Septic shock Status: Acute Assessment/Plan ct reviewed, improving reviewed wound note continue wound care, drain no additional surgical needs, will sign off Justicifation of Admission Dx: Justifications for Admission: Justification of Admission Dx: Yes BERNARDO BLANCAS APRN Dec 04, 2021 08:21
[2021-12-04] MEDS: MULTIVITAMIN with MINERAL TABLET. PO SCH (08:34)
[2021-12-04] MEDS: LACTOBACILLUS RHAMNOSUS GG 1 CAPSULE. PO SCH ×2 (08:34→20:00)
[2021-12-04] MEDS: POLYETHYLENE GLYCOL 3350 17 GM PACKET. PO SCH (08:35)
--- NOTE | 2021-12-04 08:53 | PDOC ---
Infectious Disease Note Subjective Subjective Patient feels better ROS ROS No nausea vomiting diarrhea Vital Sign Vital Signs Vital Signs Date Time Temp Pulse Resp B/P (MAP) Pulse Ox O2 Delivery O2 Flow Rate FiO2 12/04/21 07:15 97.8 67 20 116/76 (89) 96 Room Air 97.8 Physical Exam PHYSICAL EXAM GENERAL: Alert, oriented gentleman, not in distress. HEENT: Both pupils are round and reacting. No conjunctival lesion. No lesion in the mouth. NECK: Supple. LUNGS: Clear. HEART: S1, S2, regular. ABDOMEN: Mildly distended, continues to have redness and induration present on t he left side of the abdomen, more localized, tender, bowel sounds present Now has drain in place with bloody drainage induration on the left groin and lower abdomen. Wound is clean. Deep. EXTREMITIES: Left lower extremity redness, swelling present more on the medial aspect of the thigh and lower leg improved SKIN: No generalized rash except for above his scrotum is unremarkable. His post-surgical dressing was not opened. SKIP TRACER alert oriented x3,grossly nonfocal Psych calm cooperative Right IJ clean Labs Micro GRAM STAIN Final Final NO ORGANISMS SEEN. SQUAMOUS EPI CELL:NOT APPLICABLE PMN (WBCs):MANY ANAEROBIC-AEROBIC CULTURE Final Final RARE GRAM NEGATIVE RODS on 11/29/21 at 0912 FINAL ID= [ESCHERICHIA COLI] FINAL ID= [ESCHERICHIA COLI ESBL] NO ANAEROBIC ORGANISMS ISOLATED on 12/03/21 at 0816 ESCHERICHIA COLI ESCHERICHIA COLI ESBL ANTIMICROBIAL SUSCEPTIBILITY Final Comment Comment NEG KIM 56 ESCHERICHIA COLI ANTIBIOTIC RESULT INTERPRETATION AMPICILLIN/SULBACTAM 16/8 I AMIKACIN <=16 S AMPICILLIN >16 R AMOXICILLIN/K CLAVULANATE <=8/4 S AZTREONAM <=4 S CEFTRIAXONE <=1 S CEFTAZIDIME <=1 S CEFOTAXIME <=2 S CEFOXITIN <=8 S CEFAZOLIN <=2 S CIPROFLOXACIN <=0.25 S CEFEPIME <=2 S CEFUROXIME <=4 S CEFTAZIDIME/AVIBACTAM <=4 S ERTAPENEM <=0.5 S RUN DATE: 12/03/21 [facility] *LIVE* PAGE 2 RUN TIME: 820 Specimen Inquiry SPEC: [id number] PATIENT: REENA LOPEZ [id number] (Continued) Procedure Result CONTINUED ON NEXT PAGE RUN DATE: 12/03/21 [facility] *LIVE* PAGE 3 RUN TIME: 820 Specimen Inquiry SPEC: [id number] PATIENT: REENA LOPEZ [id number] (Continued) Procedure Result ANTIMICROBIAL SUSCEPTIBILITY Final (continued) GENTAMICIN <=2 S LEVOFLOXACIN <=0.5 S MEROPENEM <=1 S PIPERACILLIN/TAZOBACTAM <=8 S TRIMETHOPRIM/SULFAMETHOXAZOLE <=0.5/9.5 S TETRACYCLINE <=4 S TOBRAMYCIN <=2 S NEG KIM 56 ESCHERICHIA COLI ESBL ANTIBIOTIC RESULT INTERPRETATION AMPICILLIN/SULBACTAM 8/4 S AMIKACIN <=16 S AMPICILLIN >16 R* AMOXICILLIN/K CLAVULANATE <=8/4 S AZTREONAM >16 ESBL CEFTRIAXONE >32 ESBL CEFTAZIDIME 16 ESBL CEFOTAXIME-ESBL >1 ESBL CEFOTAXIME >32 ESBL CEFOXITIN <=8 S CEFAZOLIN >16 R* CIPROFLOXACIN <=0.25 S CEFEPIME 16 R* CEFUROXIME >16 R* CEFTAZIDIME/AVIBACTAM <=4 S ERTAPENEM <=0.5 S GENTAMICIN <=2 S LEVOFLOXACIN <=0.5 S MEROPENEM <=1 S PIPERACILLIN/TAZOBACTAM <=8 S TRIMETHOPRIM/SULFAMETHOXAZOLE <=0.5/9.5 S TETRACYCLINE <=4 S TOBRAMYCIN <=2 S Unless otherwise specified, Testing Performed by: [address] [address] For Inquires, the Physician may contact the Microbiology department at [phone] END OF REPORT GRAM STAIN Final Final GRAM NEGATIVE RODS:MANY GRAM POSITIVE RODS:MANY GRAM POSITIVE COCCI:MANY SQUAMOUS EPI CELL:NONE SEEN PMN (WBCs):MODERATE Unless otherwise specified, Testing Performed by: [address] [address] For Inquires, the Physician may contact the Microbiology department at [phone] ANAEROBIC-AEROBIC CULTURE Final Final MIXED AEROBIC AND ANAEROBIC ESTEFANIA on 11/21/21 at 1140 INCLUDING: MANY [ESCHERICHIA COLI] on 11/18/21 at 0956 FEW [STREPTOCOCCUS ANGINOSUS] on 11/19/21 at 1052 MODERATE [BACTEROIDES FRAGILIS] on 11/19/21 at 1052 MANY [PARVIMONAS MICRA] on 11/19/21 at 1052 FEW PIGMENTED [PREVOTELLA/PORPHYROMONAS SP] on 11/20/21 at 0901 FEW [CLOSTRIDIUM PERFRINGENS] on 11/21/21 at 1140 ESCHERICHIA COLI UNIDENTIFIED ORGANISM STREPTOCOCCUS ANGINOSUS BACTEROIDES FRAGILIS PARVIMONAS MICRA UNIDENTIFIED ORGANISM CLOSTRIDIUM PERFRINGENS PREVOTELLA/PORPHYROMONAS SP ANTIMICROBIAL SUSCEPTIBILITY Final Comment CONTINUED ON NEXT PAGE RUN DATE: 11/22/21 [facility] *LIVE* PAGE 2 RUN TIME: 1124 Specimen Inquiry SPEC: [id number] PATIENT: REENA LOPEZ [id number] (Continued) Procedure Result ANTIMICROBIAL SUSCEPTIBILITY Final (continued) NEG KIM 56 ESCHERICHIA COLI ANTIBIOTIC RESULT INTERPRETATION AMPICILLIN/SULBACTAM <=4/2 S AMIKACIN <=16 S AMPICILLIN <=8 S AMOXICILLIN/K CLAVULANATE <=8/4 S AZTREONAM <=4 S CEFTRIAXONE <=1 S CEFTAZIDIME <=1 S CEFOTAXIME <=2 S CEFOXITIN <=8 S CEFAZOLIN <=2 S CIPROFLOXACIN <=0.25 S CEFEPIME <=2 S CEFUROXIME <=4 S CEFTAZIDIME/AVIBACTAM <=4 S ERTAPENEM <=0.5 S GENTAMICIN <=2 S LEVOFLOXACIN <=0.5 S MEROPENEM <=1 S PIPERACILLIN/TAZOBACTAM <=8 S TRIMETHOPRIM/SULFAMETHOXAZOLE <=0.5/9.5 S TETRACYCLINE <=4 S TOBRAMYCIN <=2 S Unless otherwise specified, Testing Performed by: [address] [id number] For Inquires, the Physician may contact the Microbiology department at [phone] END OF REPORT Objective Assessment 1. Left thigh and groin abscess, Status post Incision and Drainage. Cultures positive for E coli, Bacteroides,Parvimonas 2. Lactic acidosis/sepsis. Improved 3. Leukocytosis. Improved 4. Fever. Improved 5. Hypotension, requiring vasopressor support. Improved 6. Mild acute kidney injury. 7. Thrombocytopenia Plan Plan of Care Drain in place Gen surgery following Wound care as directed, still has very large left groin wound with induration Continue supportive care. Follow the cultures CT abdomen pelvis noted reviewed with the radiologist Discussed with nursing staff Can be discharged on p.o. Augmentin and ciprofloxacin for 2 weeks KENDY SORIANO MD Dec 04, 2021 08:53
[2021-12-04] MEDS: AMOXICILLIN/K CLAV 875/125MG TABLET. PO SCH ×2 (09:39→20:00)
[2021-12-04] MEDS: CIPROFLOXACIN HCL 250 MG TABLET. PO SCH ×2 (09:39→19:59)
[2021-12-04 11:09] VITALS: BP 123/69
--- NOTE | 2021-12-04 12:11 | PDOC ---
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 coli Severe hypokalemia 2.9 (11/17-11/18) Possible necrotic fasciitis Acute electrolyte derangement due to volume depletion Lactic acidosis FROY due to vasomotor motor nephropathy Moderate protein malnutrition Lactic acidosis Fevers Hypotension FROY Constipation - will increase bowel regimen, scheduled 37 MIN PT exam, chart review, > 50% of time spent with exam, chart review, pt care coordination. History of Present Illness History of Present Illness 12/04: Seen bedside. Pain is little better controlled. Still with significant drainage per EMMA along the tract saturating multiple dressings. Awaiting BM. Discussed with ID can transition to p.o. Augmentin and ciprofloxacin for 2 weeks when d/c'd. I reached out to a general surgeon in [facility] to find appropriate office follow-up for him. 12/03: Seen bedside. Exquisite pain with trying to stand today. CT abdomen reviewed with abscess decreased in size to 6.1 x 2.1 cm from prior 8.1 x 2.1 cm. Still with voluminous drainage. Patient having difficulty accessing his own packing in his groin induration does look improved. He is not a bowel movement. Does not feel his pain is well controlled today is 8 out of 10 at the worst. No chest pain or shortness of breath 12/02: Seen bedside after CT abdomen pelvis. Read pending. Labs stable. Still with pain significant drainage. Dressing on drain changed bedside. 12/01: Seen bedside. Drain with significant serosanguineous drainage. Able to get up and have a BM on the commode. Left thigh and groin abscess, Status post Incision and Drainage 11/16/21. Cultures positive for E coli, Bacteroides,Parvimonas 11/30: Patient evaluated examined at bedside. He was resting in bed did not appear in any distress. Continuing antibiotics. Pain appears to be controlled. Plan of care discussed with bedside RN. 11/29 he complaints of pain, did not want wound repacked. Will increae IV pain meds to 100 from 50 11/28/2021 some marked induration near drain. leg are almost completely clear 11/27: No acute events overnight. Patient seen examined bedside. Patient tolerated wound care dressings and IV antibiotics. Left flank fluctuance and if erythema remains present and ultrasound was obtained showing a complex fluid collection. Surgery will consult IR for possible drainage. 36-year-old male presents with history of a "boil on his buttock for the past 2 weeks and states that he scratched and popped it a while ago. Endorses chills and fevers and extreme pain in his left thigh. Denies any chest pain, shortness of breath, abdominal pain, diarrhea, dysuria or bloody diarrhea. No relative past medical history of diabetes or hypertension. Former smoker but quit a few years ago. Is in town visiting from [place], [place]. Vitals/I&O Vitals/I&O: Vital Signs Date Time Temp Pulse Resp B/P (MAP) Pulse Ox O2 Delivery O2 Flow Rate FiO2 12/04/21 11:09 98.0 78 18 123/69 (87) 97 Room Air 98.0 I & O 12/03/21 12/03/21 12/04/21 15:00 23:00 07:00 Intake Total 220 ml Output Total 15 ml Balance 220 ml -15 ml Physical Exam Physical Exam: GENERAL: Alert, oriented gentleman, not in distress. HEENT: Both pupils are round and reacting. No conjunctival lesion. No lesion in the mouth. NECK: Supple. LUNGS: Clear. HEART: S1, S2, regular. ABDOMEN: Mildly distended, continues to have redness and induration present on the left side of the abdomen, more localized, tender, bowel sounds present Now has drain in place with bloody drainage induration on the left groin and lower abdomen. Wound is clean. Deep. EXTREMITIES: Left lower extremity redness, swelling present more on the medial aspect of the thigh and lower leg improved SKIN: No generalized rash except for above his scrotum is unremarkable. His post-surgical dressing was not opened. EMERGENCY ROOM NURSE alert oriented x3,grossly nonfocal Psych calm cooperative Right IJ clean General: Cooperative, No acute distress Heart: Regular rate, No murmurs Lungs: Clear Abdomen: Soft, Other (drain bloody) Extremities: No cyanosis, Other (Cellulitis on the left thigh appears to be resolving perhaps 5 or 10%) Skin: Other (wound with packing in place) Assessment and Plan Assessmemt and Plan Problems Medical Problems: (1) Elevated LFTs Status: Acute (2) Fourniers gangrene Status: Acute (3) Hyperbilirubinemia Status: Acute (4) Sepsis Status: Acute (5) Septic shock Status: Acute Comment Review of Relevant I have reviewed the following items fito (where applicable) has been applied. Medications: Current Medications Medications (Trade) Dose Ordered Sig/Maria De Jesus Route PRN Reason Start Time Stop Time Status Last Admin Dose Admin Psyllium Hydrophilic Mucilloid (Metamucil Fiber Packet) 1 pkt QHS PO 12/03/21 21:00 12/03/21 19:44 Ciprofloxacin (Cipro) 500 mg BID PO 12/04/21 09:00 12/04/21 09:39 Amoxicillin/ Clavulanate Potassium (Augmentin 875/ 125mg) 1 tab BID PO 12/04/21 09:00 12/04/21 09:39 Justifications for Admission Other Justification Sepsis with left thigh abscess LILA ARGUETA MD Dec 04, 2021 12:11
[2021-12-04 14:50] VITALS: BP 107/55
[2021-12-04] MEDS: ENOXAPARIN 40 MG/0.4 ML SYRINGE. SQ SCH (17:10)
[2021-12-04 19:30] VITALS: BP 110/73
[2021-12-04] MEDS: PSYLLIUM HUSK (SUGAR FREE) 1 PKT PACKET PO SCH (19:59)
[2021-12-04 23:00] VITALS: BP 107/63
[2021-12-05 02:50] VITALS: BP 101/65
[2021-12-05 07:00] VITALS: BP 105/68
[2021-12-05] MEDS: POLYETHYLENE GLYCOL 3350 17 GM PACKET. PO SCH (08:02)
[2021-12-05] MEDS: AMOXICILLIN/K CLAV 875/125MG TABLET. PO SCH ×2 (08:12→21:02)
[2021-12-05] MEDS: MULTIVITAMIN with MINERAL TABLET. PO SCH (08:12)
[2021-12-05] MEDS: CIPROFLOXACIN HCL 250 MG TABLET. PO SCH ×2 (08:12→21:02)
[2021-12-05] MEDS: LACTOBACILLUS RHAMNOSUS GG 1 CAPSULE. PO SCH ×2 (08:12→21:06)
--- NOTE | 2021-12-05 09:37 | PDOC ---
Infectious Disease Note Subjective Subjective Patient feels better ROS ROS No nausea vomiting diarrhea Vital Sign Vital Signs Vital Signs Date Time Temp Pulse Resp B/P (MAP) Pulse Ox O2 Delivery O2 Flow Rate FiO2 12/05/21 07:00 97.7 77 18 105/68 (80) 95 Room Air 97.7 Physical Exam PHYSICAL EXAM GENERAL: Alert, oriented gentleman, not in distress. HEENT: Both pupils are round and reacting. No conjunctival lesion. No lesion in the mouth. NECK: Supple. LUNGS: Clear. HEART: S1, S2, regular. ABDOMEN: Mildly distended, continues to have redness and induration present on t he left side of the abdomen, more localized, tender, bowel sounds present Now has drain in place with bloody drainage induration on the left groin and lower abdomen. Wound is clean. Deep. EXTREMITIES: Left lower extremity redness, swelling present more on the medial aspect of the thigh and lower leg improved SKIN: No generalized rash except for above his scrotum is unremarkable. His post-surgical dressing was not opened. SENSOR TECHNICIAN alert oriented x3,grossly nonfocal Psych calm cooperative Right IJ clean Labs Micro GRAM STAIN Final Final NO ORGANISMS SEEN. SQUAMOUS EPI CELL:NOT APPLICABLE PMN (WBCs):MANY ANAEROBIC-AEROBIC CULTURE Final Final RARE GRAM NEGATIVE RODS on 11/29/21 at 0912 FINAL ID= [ESCHERICHIA COLI] FINAL ID= [ESCHERICHIA COLI ESBL] NO ANAEROBIC ORGANISMS ISOLATED on 12/03/21 at 0816 ESCHERICHIA COLI ESCHERICHIA COLI ESBL ANTIMICROBIAL SUSCEPTIBILITY Final Comment Comment NEG KIM 56 ESCHERICHIA COLI ANTIBIOTIC RESULT INTERPRETATION AMPICILLIN/SULBACTAM 16/8 I AMIKACIN <=16 S AMPICILLIN >16 R AMOXICILLIN/K CLAVULANATE <=8/4 S AZTREONAM <=4 S CEFTRIAXONE <=1 S CEFTAZIDIME <=1 S CEFOTAXIME <=2 S CEFOXITIN <=8 S CEFAZOLIN <=2 S CIPROFLOXACIN <=0.25 S CEFEPIME <=2 S CEFUROXIME <=4 S CEFTAZIDIME/AVIBACTAM <=4 S ERTAPENEM <=0.5 S RUN DATE: 12/03/21 [facility] *LIVE* PAGE 2 RUN TIME: 820 Specimen Inquiry SPEC: [id number] PATIENT: REENA LOPEZ [id number] (Continued) Procedure Result CONTINUED ON NEXT PAGE RUN DATE: 12/03/21 [facility] *LIVE* PAGE 3 RUN TIME: 820 Specimen Inquiry SPEC: [id number] PATIENT: REENA LOPEZ [id number] (Continued) Procedure Result ANTIMICROBIAL SUSCEPTIBILITY Final (continued) GENTAMICIN <=2 S LEVOFLOXACIN <=0.5 S MEROPENEM <=1 S PIPERACILLIN/TAZOBACTAM <=8 S TRIMETHOPRIM/SULFAMETHOXAZOLE <=0.5/9.5 S TETRACYCLINE <=4 S TOBRAMYCIN <=2 S NEG KIM 56 ESCHERICHIA COLI ESBL ANTIBIOTIC RESULT INTERPRETATION AMPICILLIN/SULBACTAM 8/4 S AMIKACIN <=16 S AMPICILLIN >16 R* AMOXICILLIN/K CLAVULANATE <=8/4 S AZTREONAM >16 ESBL CEFTRIAXONE >32 ESBL CEFTAZIDIME 16 ESBL CEFOTAXIME-ESBL >1 ESBL CEFOTAXIME >32 ESBL CEFOXITIN <=8 S CEFAZOLIN >16 R* CIPROFLOXACIN <=0.25 S CEFEPIME 16 R* CEFUROXIME >16 R* CEFTAZIDIME/AVIBACTAM <=4 S ERTAPENEM <=0.5 S GENTAMICIN <=2 S LEVOFLOXACIN <=0.5 S MEROPENEM <=1 S PIPERACILLIN/TAZOBACTAM <=8 S TRIMETHOPRIM/SULFAMETHOXAZOLE <=0.5/9.5 S TETRACYCLINE <=4 S TOBRAMYCIN <=2 S Unless otherwise specified, Testing Performed by: [address] [address] For Inquires, the Physician may contact the Microbiology department at [phone] END OF REPORT GRAM STAIN Final Final GRAM NEGATIVE RODS:MANY GRAM POSITIVE RODS:MANY GRAM POSITIVE COCCI:MANY SQUAMOUS EPI CELL:NONE SEEN PMN (WBCs):MODERATE Unless otherwise specified, Testing Performed by: [address] [address] For Inquires, the Physician may contact the Microbiology department at [phone] ANAEROBIC-AEROBIC CULTURE Final Final MIXED AEROBIC AND ANAEROBIC ESTEFANIA on 11/21/21 at 1140 INCLUDING: MANY [ESCHERICHIA COLI] on 11/18/21 at 0956 FEW [STREPTOCOCCUS ANGINOSUS] on 11/19/21 at 1052 MODERATE [BACTEROIDES FRAGILIS] on 11/19/21 at 1052 MANY [PARVIMONAS MICRA] on 11/19/21 at 1052 FEW PIGMENTED [PREVOTELLA/PORPHYROMONAS SP] on 11/20/21 at 0901 FEW [CLOSTRIDIUM PERFRINGENS] on 11/21/21 at 1140 ESCHERICHIA COLI UNIDENTIFIED ORGANISM STREPTOCOCCUS ANGINOSUS BACTEROIDES FRAGILIS PARVIMONAS MICRA UNIDENTIFIED ORGANISM CLOSTRIDIUM PERFRINGENS PREVOTELLA/PORPHYROMONAS SP ANTIMICROBIAL SUSCEPTIBILITY Final Comment CONTINUED ON NEXT PAGE RUN DATE: 11/22/21 [facility] *LIVE* PAGE 2 RUN TIME: 1124 Specimen Inquiry SPEC: [id number] PATIENT: REENA LOPEZ [id number] (Continued) Procedure Result ANTIMICROBIAL SUSCEPTIBILITY Final (continued) NEG KIM 56 ESCHERICHIA COLI ANTIBIOTIC RESULT INTERPRETATION AMPICILLIN/SULBACTAM <=4/2 S AMIKACIN <=16 S AMPICILLIN <=8 S AMOXICILLIN/K CLAVULANATE <=8/4 S AZTREONAM <=4 S CEFTRIAXONE <=1 S CEFTAZIDIME <=1 S CEFOTAXIME <=2 S CEFOXITIN <=8 S CEFAZOLIN <=2 S CIPROFLOXACIN <=0.25 S CEFEPIME <=2 S CEFUROXIME <=4 S CEFTAZIDIME/AVIBACTAM <=4 S ERTAPENEM <=0.5 S GENTAMICIN <=2 S LEVOFLOXACIN <=0.5 S MEROPENEM <=1 S PIPERACILLIN/TAZOBACTAM <=8 S TRIMETHOPRIM/SULFAMETHOXAZOLE <=0.5/9.5 S TETRACYCLINE <=4 S TOBRAMYCIN <=2 S Unless otherwise specified, Testing Performed by: [address] [address] For Inquires, the Physician may contact the Microbiology department at [phone] END OF REPORT Objective Assessment 1. Left thigh and groin abscess, Status post Incision and Drainage. Cultures positive for E coli, Bacteroides,Parvimonas 2. Lactic acidosis/sepsis. Improved 3. Leukocytosis. Improved 4. Fever. Improved 5. Hypotension, requiring vasopressor support. Improved 6. Mild acute kidney injury. 7. Thrombocytopenia Plan Plan of Care Drain in place Gen surgery following Wound care as directed, still has very large left groin wound with induration Continue supportive care. Follow the cultures CT abdomen pelvis noted reviewed with the radiologist Discussed with nursing staff Can be discharged on p.o. Augmentin and ciprofloxacin for 2 weeks KENDY SORIANO MD Dec 05, 2021 09:37
--- NOTE | 2021-12-05 09:49 | NUR ---
Wound Care: Patient seen per wound care again today to assess patient while changing his own dressing to the surgical incision to left groin/medial thigh. Patient removed dressing and packing while showering. Wound care returned after shower and gathered appropriate tools and dressings for patient. We explained each one and assisted while patient cleansed and redressed this wound. Patient correctly packed the wound with 1/2 inch Iodoform gauze packing, covered with ABD pad and tape as well as a brief. Patient did very well changing this dressing today. He will be expected to change the dressing tomorrow and Wednesday prior to discharge with RN picturing and measuring. Patient has dressing supplies to take at discharge and all questions and concerns were answered. Spoke to SUE Belcher regarding POC. Patient to discharge on Wednesday and will not follow up with wound care due to insurance.
--- NOTE | 2021-12-05 10:18 | NUR ---
SW following. Discussed with RN, pt stating he doesn't want to discharge today because he doesn't want to go stay at his friends house for a couple days. He wants to wait here until his sister collects him. Pt on PO abx, wound care teaching and providing supplies. SW will continue to follow.
[2021-12-05 11:00] VITALS: BP 109/74
[2021-12-05 15:00] VITALS: BP 97/59
[2021-12-05] MEDS: ENOXAPARIN 40 MG/0.4 ML SYRINGE. SQ SCH (15:03)
--- NOTE | 2021-12-05 17:03 | PDOC ---
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 coli Severe hypokalemia 2.9 (11/17-11/18) Possible necrotic fasciitis Acute electrolyte derangement due to volume depletion Lactic acidosis FROY due to vasomotor motor nephropathy Moderate protein malnutrition Lactic acidosis Fevers Hypotension FROY Constipation - will increase bowel regimen, scheduled 37 MIN PT exam, chart review, > 50% of time spent with exam, chart review, pt care coordination. History of Present Illness History of Present Illness 12/05: Seen bedside. He was able to change his own dressing. Still with some drain output less than 50 cc last 24 hours. He is concerned about going to the house of his friend is over 20 people live there as well as various pets cats and dogs and does not have a door he can lock air notes his sister is on her way currently [facility] and could arrive anytime. 12/04: Seen bedside. Pain is little better controlled. Still with significant drainage per EMMA along the tract saturating multiple dressings. Awaiting BM. Discussed with ID can transition to p.o. Augmentin and ciprofloxacin for 2 weeks when d/c'd. I reached out to a general surgeon in [facility] to find appropriate office follow-up for him. 12/03: Seen bedside. Exquisite pain with trying to stand today. CT abdomen reviewed with abscess decreased in size to 6.1 x 2.1 cm from prior 8.1 x 2.1 cm. Still with voluminous drainage. Patient having difficulty accessing his own packing in his groin induration does look improved. He is not a bowel movement. Does not feel his pain is well controlled today is 8 out of 10 at the worst. No chest pain or shortness of breath 12/02: Seen bedside after CT abdomen pelvis. Read pending. Labs stable. Still with pain significant drainage. Dressing on drain changed bedside. 12/01: Seen bedside. Drain with significant serosanguineous drainage. Able to get up and have a BM on the commode. Left thigh and groin abscess, Status post Incision and Drainage 11/16/21. Cultures positive for E coli, Bacteroides,Parvimonas 11/30: Patient evaluated examined at bedside. He was resting in bed did not appear in any distress. Continuing antibiotics. Pain appears to be controlled. Plan of care discussed with bedside RN. 11/29 he complaints of pain, did not want wound repacked. Will increae IV pain meds to 100 from 50 11/28/2021 some marked induration near drain. leg are almost completely clear 11/27: No acute events overnight. Patient seen examined bedside. Patient tolerated wound care dressings and IV antibiotics. Left flank fluctuance and if erythema remains present and ultrasound was obtained showing a complex fluid collection. Surgery will consult IR for possible drainage. 36-year-old male presents with history of a "boil on his buttock for the past 2 weeks and states that he scratched and popped it a while ago. Endorses chills and fevers and extreme pain in his left thigh. Denies any chest pain, shortness of breath, abdominal pain, diarrhea, dysuria or bloody diarrhea. No relative past medical history of diabetes or hypertension. Former smoker but quit a few years ago. Is in town visiting from [place], [place]. Vitals/I&O Vitals/I&O: Vital Signs Date Time Temp Pulse Resp B/P (MAP) Pulse Ox O2 Delivery O2 Flow Rate FiO2 12/05/21 15:00 97.8 82 18 97/59 (72) 97 Room Air 97.8 I & O 12/04/21 12/04/21 12/05/21 15:00 23:00 07:00 Intake Total 520 ml Output Total 20 ml Balance 500 ml Physical Exam Physical Exam: GENERAL: Alert, oriented gentleman, not in distress. HEENT: Both pupils are round and reacting. No conjunctival lesion. No lesion in the mouth. NECK: Supple. LUNGS: Clear. HEART: S1, S2, regular. ABDOMEN: Mildly distended, continues to have redness and induration present on the left side of the abdomen, more localized, tender, bowel sounds present Now has drain in place with bloody drainage induration on the left groin and lower abdomen. Wound is clean. Deep. EXTREMITIES: Left lower extremity redness, swelling present more on the medial aspect of the thigh and lower leg improved SKIN: No generalized rash except for above his scrotum is unremarkable. His post-surgical dressing was not opened. CRM MANAGER alert oriented x3,grossly nonfocal Psych calm cooperative Right IJ clean General: Cooperative, No acute distress Heart: Regular rate, No murmurs Lungs: Clear Abdomen: Soft, Other (drain bloody) Extremities: No cyanosis, Other (Cellulitis on the left thigh appears to be resolving perhaps 5 or 10%) Skin: Other (wound with packing in place) Assessment and Plan Assessmemt and Plan Problems Medical Problems: (1) Elevated LFTs Status: Acute (2) Fourniers gangrene Status: Acute (3) Hyperbilirubinemia Status: Acute (4) Sepsis Status: Acute (5) Septic shock Status: Acute Comment Review of Relevant I have reviewed the following items fito (where applicable) has been applied. Justifications for Admission Other Justification Sepsis with left thigh abscess LILA ARGUETA MD Dec 05, 2021 17:03
[2021-12-05 19:20] VITALS: BP 104/61
[2021-12-05] MEDS: PSYLLIUM HUSK (SUGAR FREE) 1 PKT PACKET PO SCH (21:00)
[2021-12-05 22:45] VITALS: BP 109/68
[2021-12-06 03:00] VITALS: BP 111/76
[2021-12-06 07:00] VITALS: BP 119/71
[2021-12-06] MEDS: POLYETHYLENE GLYCOL 3350 17 GM PACKET. PO SCH (09:00)
[2021-12-06] MEDS: AMOXICILLIN/K CLAV 875/125MG TABLET. PO SCH (09:05)
[2021-12-06] MEDS: MULTIVITAMIN with MINERAL TABLET. PO SCH (09:05)
[2021-12-06] MEDS: LACTOBACILLUS RHAMNOSUS GG 1 CAPSULE. PO SCH (09:05)
[2021-12-06] MEDS: CIPROFLOXACIN HCL 250 MG TABLET. PO SCH (09:05)
[2021-12-06 11:00] VITALS: BP 112/70
--- NOTE | 2021-12-06 12:09 | PDOC ---
Infectious Disease Note Subjective Subjective Patient feels better Vital Sign Vital Signs Vital Signs Date Time Temp Pulse Resp B/P (MAP) Pulse Ox O2 Delivery O2 Flow Rate FiO2 12/06/21 11:00 98.0 76 16 112/70 (84) 97 Room Air 98.0 Physical Exam PHYSICAL EXAM GENERAL: Alert, oriented gentleman, not in distress. HEENT: Both pupils are round and reacting. No conjunctival lesion. No lesion in the mouth. NECK: Supple. LUNGS: Clear. HEART: S1, S2, regular. ABDOMEN: Mildly distended, continues to have redness and induration present on the left side of the abdomen, more localized, tender, bowel sounds present Now has drain in place with bloody drainage induration on the left groin and lower abdomen. Wound is clean. Deep. EXTREMITIES: Left lower extremity redness, swelling present more on the medial aspect of the thigh and lower leg improved SKIN: No generalized rash except for above his scrotum is unremarkable. His post-surgical dressing was not opened. 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 SQUAMOUS EPI CELL:NOT APPLICABLE PMN (WBCs):MANY ANAEROBIC-AEROBIC CULTURE Final Final RARE GRAM NEGATIVE RODS on 11/29/21 at 0912 FINAL ID= [ESCHERICHIA COLI] FINAL ID= [ESCHERICHIA COLI ESBL] NO ANAEROBIC ORGANISMS ISOLATED on 12/03/21 at 0816 ESCHERICHIA COLI ESCHERICHIA COLI ESBL ANTIMICROBIAL SUSCEPTIBILITY Final Comment Comment NEG KIM 56 ESCHERICHIA COLI ANTIBIOTIC RESULT INTERPRETATION AMPICILLIN/SULBACTAM 16/8 I AMIKACIN <=16 S AMPICILLIN >16 R AMOXICILLIN/K CLAVULANATE <=8/4 S AZTREONAM <=4 S CEFTRIAXONE <=1 S CEFTAZIDIME <=1 S CEFOTAXIME <=2 S CEFOXITIN <=8 S CEFAZOLIN <=2 S CIPROFLOXACIN <=0.25 S CEFEPIME <=2 S CEFUROXIME <=4 S CEFTAZIDIME/AVIBACTAM <=4 S ERTAPENEM <=0.5 S RUN DATE: 12/03/21 [facility] *LIVE* PAGE 2 RUN TIME: 820 Specimen Inquiry SPEC: [id number] PATIENT: REENA LOPEZ [id number] (Continued) Procedure Result CONTINUED ON NEXT PAGE RUN DATE: 12/03/21 [facility] *LIVE* PAGE 3 RUN TIME: 820 Specimen Inquiry SPEC: [id number] PATIENT: REENA LOPEZ [id number] (Continued) Procedure Result ANTIMICROBIAL SUSCEPTIBILITY Final (continued) GENTAMICIN <=2 S LEVOFLOXACIN <=0.5 S MEROPENEM <=1 S PIPERACILLIN/TAZOBACTAM <=8 S TRIMETHOPRIM/SULFAMETHOXAZOLE <=0.5/9.5 S TETRACYCLINE <=4 S TOBRAMYCIN <=2 S NEG KIM 56 ESCHERICHIA COLI ESBL ANTIBIOTIC RESULT INTERPRETATION AMPICILLIN/SULBACTAM 8/4 S AMIKACIN <=16 S AMPICILLIN >16 R* AMOXICILLIN/K CLAVULANATE <=8/4 S AZTREONAM >16 ESBL CEFTRIAXONE >32 ESBL CEFTAZIDIME 16 ESBL CEFOTAXIME-ESBL >1 ESBL CEFOTAXIME >32 ESBL CEFOXITIN <=8 S CEFAZOLIN >16 R* CIPROFLOXACIN <=0.25 S CEFEPIME 16 R* CEFUROXIME >16 R* CEFTAZIDIME/AVIBACTAM <=4 S ERTAPENEM <=0.5 S GENTAMICIN <=2 S LEVOFLOXACIN <=0.5 S MEROPENEM <=1 S PIPERACILLIN/TAZOBACTAM <=8 S TRIMETHOPRIM/SULFAMETHOXAZOLE <=0.5/9.5 S TETRACYCLINE <=4 S TOBRAMYCIN <=2 S Unless otherwise specified, Testing Performed by: [address] [address] For Inquires, the Physician may contact the Microbiology department at [phone] - END OF REPORT GRAM STAIN Final Final GRAM NEGATIVE RODS:MANY GRAM POSITIVE RODS:MANY GRAM POSITIVE COCCI:MANY SQUAMOUS EPI CELL:NONE SEEN PMN (WBCs):MODERATE Unless otherwise specified, Testing Performed by: [address] [address] For Inquires, the Physician may contact the Microbiology department at [phone] ANAEROBIC-AEROBIC CULTURE Final Final MIXED AEROBIC AND ANAEROBIC ESTEFANIA on 11/21/21 at 1140 INCLUDING: MANY [ESCHERICHIA COLI] on 11/18/21 at 0956 FEW [STREPTOCOCCUS ANGINOSUS] on 11/19/21 at 1052 MODERATE [BACTEROIDES FRAGILIS] on 11/19/21 at 1052 MANY [PARVIMONAS MICRA] on 11/19/21 at 1052 FEW PIGMENTED [PREVOTELLA/PORPHYROMONAS SP] on 11/20/21 at 0901 FEW [CLOSTRIDIUM PERFRINGENS] on 11/21/21 at 1140 ESCHERICHIA COLI UNIDENTIFIED ORGANISM STREPTOCOCCUS ANGINOSUS BACTEROIDES FRAGILIS PARVIMONAS MICRA UNIDENTIFIED ORGANISM CLOSTRIDIUM PERFRINGENS PREVOTELLA/PORPHYROMONAS SP ANTIMICROBIAL SUSCEPTIBILITY Final Comment CONTINUED ON NEXT PAGE RUN DATE: 11/22/21 [facility] *LIVE* PAGE 2 RUN TIME: 1124 Specimen Inquiry SPEC: [id number] PATIENT: REENA LOPEZ [id number] (Continued) Procedure Result ANTIMICROBIAL SUSCEPTIBILITY Final (continued) NEG KIM 56 ESCHERICHIA COLI ANTIBIOTIC RESULT INTERPRETATION AMPICILLIN/SULBACTAM <=4/2 S AMIKACIN <=16 S AMPICILLIN <=8 S AMOXICILLIN/K CLAVULANATE <=8/4 S AZTREONAM <=4 S CEFTRIAXONE <=1 S CEFTAZIDIME <=1 S CEFOTAXIME <=2 S CEFOXITIN <=8 S CEFAZOLIN <=2 S CIPROFLOXACIN <=0.25 S CEFEPIME <=2 S CEFUROXIME <=4 S CEFTAZIDIME/AVIBACTAM <=4 S ERTAPENEM <=0.5 S GENTAMICIN <=2 S LEVOFLOXACIN <=0.5 S MEROPENEM <=1 S PIPERACILLIN/TAZOBACTAM <=8 S TRIMETHOPRIM/SULFAMETHOXAZOLE <=0.5/9.5 S TETRACYCLINE <=4 S TOBRAMYCIN <=2 S Unless otherwise specified, Testing Performed by: [address] [address] For Inquires, the Physician may contact the Microbiology department at [phone] END OF REPORT Objective Assessment 1. Left thigh and groin abscess, Status post Incision and Drainage. Cultures positive for E coli, Bacteroides,Parvimonas 2. Lactic acidosis/sepsis. Improved 3. Leukocytosis. Improved 4. Fever. Improved 5. Hypotension, requiring vasopressor support. Improved 6. Mild acute kidney injury. 7. Thrombocytopenia Plan Plan of Care Drain in place Gen surgery following Wound care as directed, still has very large left groin wound with induration Continue supportive care. Follow the cultures CT abdomen pelvis noted reviewed with the radiologist Discussed with nursing staff Can be discharged on p.o. Augmentin and ciprofloxacin for 2 weeks KENDY SORIANO MD Dec 06, 2021 12:09
--- NOTE | 2021-12-06 14:26 | PDOC ---
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 coli Severe hypokalemia 2.9 (11/17-11/18) Possible necrotic fasciitis Acute electrolyte derangement due to volume depletion Lactic acidosis FROY due to vasomotor motor nephropathy Moderate protein malnutrition Lactic acidosis Fevers Hypotension FROY Constipation - will increase bowel regimen, scheduled 37 MIN PT exam, chart review, > 50% of time spent with exam, chart review, pt care coordination. History of Present Illness History of Present Illness 12/06: Bedside. Afebrile. Still had some difficulty controlling his pain. Drain output less than 50 cc over last 24 hours. Counseled on changing his own dressing. Reached out to general surgery in [facility]. His sister is currently coming to pick him up. 12/05: Seen bedside. He was able to change his own dressing. Still with some drain output less than 50 cc last 24 hours. He is concerned about going to the house of his friend is over 20 people live there as well as various pets cats and dogs and does not have a door he can lock air notes his sister is on her way currently from [facility] and could arrive anytime. 12/04: Seen bedside. Pain is little better controlled. Still with significant drainage per EMMA along the tract saturating multiple dressings. Awaiting BM. Discussed with ID can transition to p.o. Augmentin and ciprofloxacin for 2 weeks when d/c'd. I reached out to a general surgeon in [facility] to find appropriate office follow-up for him. 12/03: Seen bedside. Exquisite pain with trying to stand today. CT abdomen reviewed with abscess decreased in size to 6.1 x 2.1 cm from prior 8.1 x 2.1 cm. Still with voluminous drainage. Patient having difficulty accessing his own packing in his groin induration does look improved. He is not a bowel movement. Does not feel his pain is well controlled today is 8 out of 10 at the worst. No chest pain or shortness of breath 12/02: Seen bedside after CT abdomen pelvis. Read pending. Labs stable. Still with pain significant drainage. Dressing on drain changed bedside. 12/01: Seen bedside. Drain with significant serosanguineous drainage. Able to get up and have a BM on the commode. Left thigh and groin abscess, Status post Incision and Drainage 11/16/21. Cultures positive for E coli, Bacteroides,Parvimonas 11/30: Patient evaluated examined at bedside. He was resting in bed did not appear in any distress. Continuing antibiotics. Pain appears to be controlled. Plan of care discussed with bedside RN. 11/29 he complaints of pain, did not want wound repacked. Will increae IV pain meds to 100 from 50 11/28/2021 some marked induration near drain. leg are almost completely clear 11/27: No acute events overnight. Patient seen examined bedside. Patient tolerated wound care dressings and IV antibiotics. Left flank fluctuance and if erythema remains present and ultrasound was obtained showing a complex fluid col lection. Surgery will consult IR for possible drainage. 36-year-old male presents with history of a "boil on his buttock for the past 2 weeks and states that he scratched and popped it a while ago. Endorses chills and fevers and extreme pain in his left thigh. Denies any chest pain, shortness of breath, abdominal pain, diarrhea, dysuria or bloody diarrhea. No relative past medical history of diabetes or hypertension. Former smoker but quit a few years ago. Is in town visiting from [place], [place]. Vitals/I&O Vitals/I&O: Vital Signs Date Time Temp Pulse Resp B/P (MAP) Pulse Ox O2 Delivery O2 Flow Rate FiO2 12/06/21 11:00 98.0 76 16 112/70 (84) 97 Room Air 98.0 I & O 12/05/21 12/05/21 12/06/21 15:00 23:00 07:00 Intake Total 300 ml Output Total 10 ml Balance 290 ml Physical Exam Physical Exam: GENERAL: Alert, oriented gentleman, not in distress. HEENT: Both pupils are round and reacting. No conjunctival lesion. No lesion in the mouth. NECK: Supple. LUNGS: Clear. HEART: S1, S2, regular. ABDOMEN: Mildly distended, continues to have redness and induration present on the left side of the abdomen, more localized, tender, bowel sounds present Now has drain in place with bloody drainage induration on the left groin and lower abdomen. Wound is clean. Deep. EXTREMITIES: Left lower extremity redness, swelling present more on the medial aspect of the thigh and lower leg improved SKIN: No generalized rash except for above his scrotum is unremarkable. His post-surgical dressing was not opened. 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,grossly nonfocal Psych calm cooperative Right IJ clean General: Cooperative, No acute distress Heart: Regular rate, No murmurs Lungs: Clear Abdomen: Soft, Other (drain bloody) Extremities: No cyanosis, Other (Cellulitis on the left thigh appears to be resolving perhaps 5 or 10%) Skin: Other (wound with packing in place) Assessment and Plan Assessmemt and Plan Problems Medical Problems: (1) Elevated LFTs Status: Acute (2) Fourniers gangrene Status: Acute (3) Hyperbilirubinemia Status: Acute (4) Sepsis Status: Acute (5) Septic shock Status: Acute Comment Review of Relevant I have reviewed the following items fito (where applicable) has been applied. Justifications for Admission Other Justification Sepsis with left thigh abscess LILA ARGUETA MD Dec 06, 2021 14:26
[2021-12-06] MEDS ORDERED: CIPR250T30 PO (14:35)
[2021-12-06] MEDS ORDERED: AMOX1TAB11 PO (14:35)
--- NOTE | 2021-12-06 14:48 | PDOC3 ---
Discharge Summary Visit Information Date of Admission: Nov 16, 2021 Date of Discharge: Dec 06, 2021 Admitting Diagnosis: Jacky's gangrene Final Diagnosis Problems Medical Problems: (1) Elevated LFTs Status: Acute (2) Fourniers gangrene Status: Acute (3) Hyperbilirubinemia Status: Acute (4) Sepsis Status: Acute (5) Septic shock Status: Acute Brief Hospital Course Allergies Allergies Coded Allergies Type Severity Reaction Last Updated Verified I S O L A T I O N *CONTACT* Allergy Unknown 12/03/21 Yes No Known Medication Allergies Allergy Unknown 12/03/21 Yes Vital Signs Vital Signs Date Time Temp Pulse Resp B/P (MAP) Pulse Ox O2 Delivery O2 Flow Rate FiO2 12/06/21 11:00 98.0 76 16 112/70 (84) 97 Room Air 98.0 Brief Hospital Course Mr Reis is a 36-year-old male admitted 11/16/2021 with history of a "boil on his buttock for the past 2 weeks and states that he scratched and popped it a while ago. Endorses chills and fevers and extreme pain in his left thigh. Denies any chest pain, shortness of breath, abdominal pain, diarrhea, dysuria or bloody diarrhea. No relative past medical history of diabetes or hypertension. Former smoker but quit a few years ago. Is in town visiting from [place], [place]. Found with large left groin abscess. Status post Incision and Drainage 11/16/21. Cultures positive for E coli, Bacteroides,Parvimonas 11/27 IR drain placed for continued fluid collection. Had prolonged stay for complicated wounds requiring multiple times daily wound care and by 06/17/2022 was able to be educated on doing his dressing changes on his own. 12/06/2021 drain output was only 5 cc daily. Drain pulled and educated family has his sister arrived to take him home will be coming home on 2 weeks ciprofloxacin. Augmentin and given instructions to follow-up outpatient with either [facility] wound care and removal or [facility] wound care outpatient Last week of stay: 12/06: Seen Bedside. Afebrile. Still had some difficulty controlling his pain. Drain output less than 50 cc over last 24 hours. Counseled on changing his own dressing. Reached out to general surgery in [facility]. His sister is currently coming to pick him up. 1/7: Seen bedside. He was able to change his own dressing. Still with some drain output less than 50 cc last 24 hours. He is concerned about going to the house of his friend is over 20 people live there as well as various pets cats and dogs and does not have a door he can lock air notes his sister is on her way currently from [facility] and could arrive anytime. 12/04: Seen bedside. Pain is little better controlled. Still with significant drainage per EMMA along the tract saturating multiple dressings. Awaiting BM. Discussed with ID can transition to p.o. Augmentin and ciprofloxacin for 2 weeks when d/c'd. I reached out to a general surgeon in [facility] to find appropriate office follow-up for him. 12/03: Seen bedside. Exquisite pain with trying to stand today. CT abdomen reviewed with abscess decreased in size to 6.1 x 2.1 cm from prior 8.1 x 2.1 cm. Still with voluminous drainage. Patient having difficulty accessing his own packing in his groin induration does look improved. He is not a bowel movement. Does not feel his pain is well controlled today is 8 out of 10 at the worst. No chest pain or shortness of breath 12/02: Seen bedside after CT abdomen pelvis. Read pending. Labs stable. Still with pain significant drainage. Dressing on drain changed bedside. 12/01: Seen bedside. Drain with significant serosanguineous drainage. Able to get up and have a BM on the commode. 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 coli Severe hypokalemia 2.9 (11/17-11/18) Possible necrotic fasciitis Acute electrolyte derangement due to volume depletion Lactic acidosis FROY due to vasomotor motor nephropathy Moderate protein malnutrition Lactic acidosis Fevers Hypotension FROY Constipation - will increase bowel regimen, scheduled Greater than 30 minutes spent on d/c home Discharge Information Condition at Discharge: Improved Follow Up: Weeks (1) Disposition/Orders: D/C to Home Scheduled Amoxicillin/Potassium Clav (Amox Tr-K Clv 875-125 Mg Tab) 1 Each Tablet, 1 TAB PO BID for Abscess for 14 Days, #28 Prescribed by: LILA ARGUETA MD on 12/06/21 1435 Ciprofloxacin Hcl (Cipro) 250 Mg Tablet, 500 MG PO BID for Abscess for 14 Days, #56 Prescribed by: LILA ARGUETA MD on 12/06/21 1435 Justicifation of Admission Dx: Justifications for Admission: Justification of Admission Dx: Yes LILA ARGUETA MD Dec 06, 2021 14:48
[2021-12-06] MEDS: ENOXAPARIN 40 MG/0.4 ML SYRINGE. SQ SCH (16:00)
== END 2021-12-06 17:10 | disposition home or self-care (01) | DRG 853 ==
LOC: ER 21:47 → 1 WEST ICU 11-16 01:03 → 6 SOUTH 11-19 13:42 → 4 NORTH 11-27 12:14
PROVIDERS: ADMIT Student in an Organized Health Care Education/Training Program; ATTEND Student in an Organized Health Care Education/Training Program
PROC: 0KBT0ZZ Excision of Left Lower Leg Muscle, Open Approach (ICD-10-PCS; 2021-11-16)
PROC: 02HV33Z Insertion of Infusion Device into Superior Vena Cava, Percutaneous Approach (ICD-10-PCS; 2021-11-17)
PROC: 0J9830Z Drainage of Abdomen Subcutaneous Tissue and Fascia with Drainage Device, Percutaneous Approach (ICD-10-PCS; principal; 2021-11-27)
DX: A41.9 Sepsis, unspecified organism (principal); R65.21 Severe sepsis with septic shock; M72.6 Necrotizing fasciitis; N17.0 Acute kidney failure with tubular necrosis; E44.0 Moderate protein-calorie malnutrition; J98.11 Atelectasis; L02.211 Cutaneous abscess of abdominal wall; L02.214 Cutaneous abscess of groin; L02.416 Cutaneous abscess of left lower limb; R17 Unspecified jaundice; L03.116 Cellulitis of left lower limb; B96.20 Unspecified Escherichia coli [E. coli] as the cause of diseases classified elsewhere; D69.6 Thrombocytopenia, unspecified; E86.9 Volume depletion, unspecified; K59.00 Constipation, unspecified; N49.3 Fournier gangrene; Z87.891 Personal history of nicotine dependence; E87.6 Hypokalemia; Z20.822 Contact with and (suspected) exposure to COVID-19
CPT/HCPCS: 10030; 36415; 71045; 71260; 74177; 76705; 80048; 80053; 81001; 82550; 83605; 83690; 83735; 84100; 84132; 85007; 85025; 87040; 87071; 87075; 87076; 87077; 87086; 87186; 87426; 96365; 96375; 96376; A4930; A6253; A6266; A6402; C1751; J1650; J2020; J2185; J2270; J2543; J2704; J3010; J3370; J3475; J3480; J3490; J7030; J7040; J7060; J7120; Q9966; Q9967; U0003; U0005; 99291-25; G0378